=== PATIENT | male | born 1950 | race Caucasian/White ===

== ENCOUNTER 2020-02-25 08:06 | Inpatient (IN) | payer OTHER ==
--- NOTE | 2020-02-25 09:13 | PDOC ---
History of Present Illness - General Chief Complaint: Nausea/Vomiting Stated Complaint: DIZZINESS,DIARRHEA,WEKNESS Time Seen by Provider: 02/25/20 08:29 - History of Present Illness Initial Comments: 02/25/20 09:10 69 yo male with PMH of HTN, HLD, IDDM, Stent (16 years ago) presents to the ED with epigastric pain for the past four days ago. Pt is syrian speaker so history was translated by . Pt explains that he went into work on Friday it was very hot and since then has been feeling sick. Pt says that on Friday he tried to eat but had an episode of nonbloody nonbilious emesis. Pt explains pain feels like an upset stomach, the pain has been coming and going and presently at 10/10 in pain, not worse with food or exertion, better when he lies on his right side, and radiates to his right abdomen. Pt has associated sxs of decreased appetite and 5 episodes of emesis with last one being last night. Pt denies SOB, chest pain, dyspnea on exertion, cough, ext swelling, dysuria, urinary frequency, chills, fever, or any sick contacts. PMH: HTN HLD IDDM PSH: Stent FHx: History of cardiac disease Social: occasional alcohol use, denies drug or tobacco use PCP: Dr. De Souza Union Organizer: Dr. Hi 02/25/20 10:56 02/25/20 14:39 Past History - Medical History Allergies/Adverse Reactions: Allergies Allergy/AdvReac Type Severity Reaction Status Date / Time No Known Allergies Allergy Verified 02/25/20 08:09 Home Medications: Ambulatory Orders Clopidogrel Bisulfate [Plavix] 75 mg PO DAILY #30 tablet 12/09/13 Glimepiride 4 mg PO DAILY tablet 12/09/13 Losartan Potassium 50 mg PO DAILY tablet 12/09/13 Metoprolol Succinate 50 mg PO DAILY 12/09/13 Rosuvastatin Calcium [Crestor] 40 mg PO DAILY tablet 12/09/13 Atorvastatin Calcium 40 mg PO DAILY tablet 05/30/14 Metformin HCl 500 mg PO BID #14 tablet 05/30/14 CVA: Yes COPD: No Diabetes: Yes HTN: Yes Hypercholesterolemia: Yes - Immunization History Immunization Up to Date: Yes - Psycho-Social/Smoking History Smoking History: Never smoked - Substance Abuse Hx (Audit-C & DAST Scrn) How often the patient has a drink containing alcohol: Never Score: In Men: 4 or > Positive; In Women: 3 or > Positive: 0 Screen Result (Pos requires Nsg. Audit-10AR): Negative In the last yr the pt used illegal drug/Rx for NonMed reason: No Score: Yes response is considered Positive: 0 Screen Result (Positive result requires Nsg. DAST-10): Negative Review of Systems - Review of Systems Comments:: GENERAL/CONSTITUTIONAL: No fever or chills. HEAD, EYES, EARS, NOSE AND THROAT: No change in vision. No ear pain or discharge. No sore throat. CARDIOVASCULAR: No chest pain or shortness of breath RESPIRATORY: No cough, wheezing, or hemoptysis. GASTROINTESTINAL: NAUSEA, Vomitting, Epigastric pain GENITOURINARY: No dysuria, frequency, or change in urination. MUSCULOSKELETAL: No joint or muscle swelling or pain. No neck or back pain. SKIN: No rash NEUROLOGIC: No headache, vertigo, loss of consciousness, or change in strength /sensation. ENDOCRINE: Decreased appetite and thirst ALLERGIC/IMMUNOLOGIC: No hives or skin allergy. 02/25/20 09:51 *Physical Exam - Vital Signs Last Vital Signs Temp Pulse Resp BP Pulse Ox 97.3 F L 104 H 20 137/61 100 02/25/20 08:09 02/25/20 08:09 02/25/20 08:09 02/25/20 08:09 02/25/20 08:09 - Physical Exam GENERAL: Awake, alert, and fully oriented, Pt appears in distress lying on right side HEAD: No signs of trauma, normocephalic, atraumatic EYES: PERRLA, EOMI, conjunctiva clear ENT: oropharynx clear without exudates. DRY MUCOSA NECK: Normal ROM, supple, no lymphadenopathy, JVD, or masses LUNGS: No distress, speaks full sentences, clear to auscultation bilaterally HEART: Regular rate and rhythm, normal S1 and S2, no murmurs, rubs or gallops, peripheral pulses normal and equal bilaterally. ABDOMEN: Soft, nontender, normoactive bowel sounds. No guarding, no rebound. No masses EXTREMITIES : Normal inspection, Normal range of motion, no edema. No clubbing or cyanosis. NEUROLOGICAL: Cranial nerves II through XII grossly intact. Normal speech no focal sensorimotor deficits. SKIN: Warm, Dry, normal turgor, no rashes or lesions noted Heart Score/ECG Review - ECG Impressions Comment:: Sinus Tachycarda Rate of 101 Normal rhythm T wave inversion of III LA interval normal QT 388/503 No prior ECG to compare 02/25/20 09:48 ED Treatment Course - LABORATORY CBC & Chemistry Diagram: 02/25/20 09:00 02/25/20 11:10 - ADDITIONAL ORDERS Additional order review: Laboratory Results 02/25/20 08:17 POC Glucometer 113 02/25/20 08:17 POC Glucometer 113 Medical Decision Making - Medical Decision Making Assesment: - R/O ACS - Rhabdomyoliasis - Pancreatitis - gastritis -cholecystitis 69 yo male with PMH of HTN, HLD, IDDM, and stent complaining of epigastric pain, nausea, and vomitting for four days after working on a hot day. Pt got CBC, CMP, lipase, CXR, EKG, and cardiac biomarkers. Will receive fluid, pepcid, malox, and viscous lidocaine. Will check labs, reasses labs, and plan for dispo. 02/25/20 09:56 02/25/20 10:24 Pt lab came back with critical lab results of elevated K at 7.4 with BUN of 107 and Cr of 13.6. 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 Pt will receive Insulin with D50, Calcium gluconate, Albuterol, bicarb and reassess labs with EKG and BMP within one hour. Pt will be admitted to hospitalist and call was made out to Nephrology. 02/25/20 10:[address] Patel and he was made aware of the situation with the elevated K. He agreed with plan and said to add 1L NS with 150mL/hr, repeat BMP, and admit to ICU. When checking BMP if K>6 give kayexelate and if >6.5 urgent dialysis. 02/25/20 10:53 Pt stated he started feeling SOB. Pt lungs are CTA bilaterally but we decided to hold fluids for now. 02/25/20 11:39 Pt pH came back 6.8 restarted fluids very slowly will reasses 02/25/20 12:26 Dr. Patel has assesed pt and has recommended Trialysis and adkins and admit to ICU. 02/25/20 14:38 Trialysis has been placed pt has been sent to ICU Discharge - Discharge Information Problems reviewed: Yes Clinical Impression/Diagnosis: Lactic acidosis, Uremia, Hyperkalemia Acute renal failure Qualifiers: Acute renal failure type: unspecified Qualified Code(s): N17.9 - Acute kidney failure, unspecified Condition: Critical - Admission Yes - Follow up/Referral - Patient Discharge Instructions - Post Discharge Activity
[2020-02-25 09:25] LABS: BASO % 0.6 % (0-2.0); HEMATOCRIT 44.9 % (35.4-49); MCH 31.8 pg (25.7-33.7); MCHC 31.3 g/dl (32.0-35.9); MEAN CELL VOLUME 101.5 fl (80-96); MEAN PLT VOLUME 9.2 fl (7.5-11.1); MONO % 1.6 % (3.8-10.2); NEUT % 90.8 % (42.8-82.8); PLATELET COUNT 384 K/MM3 (134-434); RBC 4.42 M/mm3 (4.00-5.60); RDW 13.8 % (11.9-15.9); WHITE BLOOD COUNT 14.6 K/mm3 (4.0-10.0)
[2020-02-25] MEDS ORDERED: FAMOTIDINE 20 MG/50 ML IVPB 20 MG/50 ML MG IVPB ONE ×2 (09:43→09:53)
[2020-02-25] MEDS ORDERED: LIDOCAINE VISCOUS 2% ORAL/TOP 20 ML UNIT-DOSE CUP MM ONE (09:43)
[2020-02-25] MEDS ORDERED: SODIUM CHLORIDE 1,000 ML IV STA (09:43)
[2020-02-25] MEDS ORDERED: MAG HYDROX/AL HYDROX/SIMETH 30 ML UNIT-DOSE CUP PO ONE (09:43)
[2020-02-25] MEDS ORDERED: MAG HYDROX/AL HYDROX/SIMETH 30 ML UNIT-DOSE CUP ONE (09:53)
[2020-02-25] MEDS ORDERED: LIDOCAINE VISCOUS 2% ORAL/TOP 20 ML UNIT-DOSE CUP ONE (09:53)
[2020-02-25 10:02] LABS: MAGNESIUM 2.5 mg/dL (1.8-2.4)
[2020-02-25 10:06] LABS: ALBUMIN 3.6 g/dl (3.4-5.0); BILIRUBIN,TOTAL 0.3 mg/dL (0.2-1); TOT PROT 7.3 g/dl (6.4-8.2)
[2020-02-25 10:07] LABS: BLOOD UREA NITROGEN 107.5 mg/dL (7-18)
[2020-02-25 10:08] LABS: CREATININE 13.6 mg/dL (0.55-1.3); POTASSIUM 7.4 mmol/L (3.5-5.1)
[2020-02-25] MEDS ORDERED: CALCIUM GLUCONATE 10% - 1,000 MG/10 ML VIAL IVPB ONE (10:12)
[2020-02-25] MEDS ORDERED: INSULIN REGULAR HUMAN 100 UNITS/ML *VIAL IVPUSH ONE (10:13)
[2020-02-25] MEDS ORDERED: DEXTROSE 50%-WATER - 25 GM/50 ML VIAL IVPUSH ONE (10:14)
[2020-02-25] MEDS ORDERED: SODIUM BICARBONATE 8.4% 50 MEQ/50 ML DISP.SYRIN IVPUSH ONE ×2 (10:17→12:21)
[2020-02-25] MEDS ORDERED: ALBUTEROL SO4 0.083% IH SOL 2.5 MG/3 ML VIAL.NEB. NEB ONE ×2 (10:18→10:55)
[2020-02-25] MEDS ORDERED: DEXTROSE 50%-WATER 25 GM/50 ML DISP.SYRIN ONE (10:21)
[2020-02-25] MEDS ORDERED: SODIUM BICARBONATE 8.4% - 50 ML ONE ×2 (10:21→12:50)
[2020-02-25] MEDS ORDERED: INSULIN REGULAR HUMAN 100 UNITS/ML *VIAL ONE (10:21)
[2020-02-25] MEDS ORDERED: CALCIUM GLUCONATE 10% - 1,000 MG/10 ML VIAL ONE ×2 (10:21→10:22)
--- NOTE | 2020-02-25 10:39 | PDOC ---
Documentation entered by Emiliana Tay SCRIBE, acting as scribe for Giorgio Smith MD. Giorgio Smith MD: This documentation has been prepared by the Maggi jones Brenda, SCRIBE, under my direction and personally reviewed by me in its entirety. I confirm that the documentation accurately reflects all work, treatment, procedures, and medical decision making performed by me. Attending Attestation - Resident Resident Name: Joon Edenison - ED Attending Attestation I have performed the following: I have examined & evaluated the patient, The case was reviewed & discussed with the resident, I agree w/resident's findings & plan, Exceptions are as noted - HPI HPI: 02/25/20 10:22 The patient is a 69 year old male with a significant PMH of HTN, HLD, IDDM and a stent (16 years ago) who presents to the ED for evaluation of 4 days of epigastric abdominal pain. Patient notes that the pain feels like he has an upset stomach, stating it is intermittent and radiates to his RLQ. He also endorses feeling ill while at work on Friday and when he tried to eat he had an episode of NBNB vomiting. He reports that since then he's had 5 episodes of vomiting, with his most recent being last night along with decreased appetite. The patient denies chest pain, shortness of breath, headache and dizziness. Denies fever, chills, diarrhea and constipation. Denies frequency, urgency and hematuria. The patient denies any other symptoms. No increased leg swelling Allergies: NKA Past surgical history: Stent Social history: No reported hx of tobacco use or illicit drug use. Occasional alcohol use. PCP: Dr. Rubin - Physicial Exam PE: 02/25/20 10:35 GENERAL: The patient is awake, alert, and fully oriented, Nontoxic - in no acute distress. HEAD: Normocephalic, atraumatic. EYES: extraocular movements intact, sclera anicteric, conjunctiva clear. ENT: Normal voice, Moist mucous membranes. NECK: Normal range of motion, supple LUNGS: Breath sounds equal, clear to auscultation bilaterally. No wheezes, no rhonchi, no rales. HEART: Regular rate and rhythm, normal S1 and S2 without murmur, rub or gallop. ABDOMEN: Soft, nontender, No guarding, no rebound. No CVA tenderness EXTREMITIES: Normal range of motion, trace edema. NEUROLOGICAL: No facial assymetry, Normal speech, PSYCH: Normal mood, normal affect. SKIN: Warm, Dry, normal turgor, - Critical Care Time Total Critical Care Time: 45 Critical Care Statement: The care of this patient involved high complexity decision making to prevent further life threatening deterioration of the patient's condition and/or to evaluate & treat vital organ system(s) failure or risk of failure. - Medical Decision Making 02/25/20 10:35 69y M HTN, HLD, IDDM, Stent (16 years ago) presents with malaise for a few days with nausea and mild chest/epigastric pain. on exam pt in no disress, exam unremarkable will obtain blod work to screen for acs, metabolic derangement, anemia fluids for hydration ekg to screen for acs labs noted for new aaliyah, with hyperkalemia will treat with hyperk cocktail will hduyrate case dw renal. will repeat will admit for further mangement will admit to icu 02/25/20 11:49 Patient's blood work was reviewed noted for acidosis likely related to his renal failure. Will discuss with renal regarding possible diallysis Discharge - Discharge Information Problems reviewed: Yes Clinical Impression/Diagnosis: Lactic acidosis, Uremia, Hyperkalemia Acute renal failure Qualifiers: Acute renal failure type: unspecified Qualified Code(s): N17.9 - Acute kidney failure, unspecified Condition: Improved Disposition: HOME - Admission Yes - Follow up/Referral - Patient Discharge Instructions - Post Discharge Activity
[2020-02-25] MEDS ORDERED: SODIUM CHLORIDE 1,000 ML IV SCH (10:45)
[2020-02-25] MEDS: SODIUM CHLORIDE 1,000 ML IV SCH ×2 (10:45→21:19)
[2020-02-25 10:49] LABS: INR 0.97 (0.83-1.09); PROTHROMBIN TIME (PATIENT) 11.4 SEC (9.7-13.0)
[2020-02-25 10:52] LABS: ACTIVATED PTT 29.8 SECONDS (25.2-36.5)
[2020-02-25 11:28] LABS: VENOUS BASE EXCESS -27.7 mmol/L (-2-2); VENOUS O2 SATURATION 62.2 % (70-80); VENOUS PCO2 31.7 mmHg (38-52)
[2020-02-25 11:33] LABS: VENOUS PH 6.855 (7.310-7.410)
[2020-02-25 11:59] LABS: CALCIUM 8.7 mg/dL (8.5-10.1)
[2020-02-25 12:01] LABS: BLOOD UREA NITROGEN 116.9 mg/dL (7-18); CREATININE 13.7 mg/dL (0.55-1.3)
[2020-02-25 12:02] LABS: POTASSIUM 7.1 mmol/L (3.5-5.1)
--- NOTE | 2020-02-25 12:23 | CON.NEP ---
Consult Consult Specialty:: Nephrology Referred by:: ED Reason for Consultation:: Acute Renal Failure - History of Present Illness Chief Complaint: Weakness History of Present Illness: This is a 69 year old male with history of CAD s/p PCI and stent, insulin dependent DM, hypertension, hyperlipidemia who presented with g eneralized weakness and found to have acute renal failure with hyperkalemia and acidosis. Pt seen and examined in the ED. Is accompanied by his . He is awake and alert. Reports fatigue x 1 week. Has anorexia with some nausea and vomiting. Denies any history of kidney disease, stones or recurrent urinary tract infections. Denies any NSAID use. No recent contrast exposure. No flank pain. Has been making less urine. No gross hematuria noted. No history of enlarged prostate. - History Source History Provided By: Patient Limitations to Obtaining History: No Limitations - Past Medical History Cardio/Vascular: Yes: CAD, HTN, Hyperlipdemia Endocrine: Yes: Diabetes Insipidus - Alcohol/Substance Use Hx Alcohol Use: No - Smoking History Smoking history: Never smoked Home Medications - Allergies Allergies/Adverse Reactions: Allergies Allergy/AdvReac Type Severity Reaction Status Date / Time No Known Allergies Allergy Verified 02/25/20 08:09 - Home Medications Home Medications: Ambulatory Orders Clopidogrel Bisulfate [Plavix] 75 mg PO DAILY #30 tablet 12/09/13 Glimepiride 4 mg PO DAILY tablet 12/09/13 Losartan Potassium 50 mg PO DAILY tablet 12/09/13 Metoprolol Succinate 50 mg PO DAILY 12/09/13 Rosuvastatin Calcium [Crestor] 40 mg PO DAILY tablet 12/09/13 Atorvastatin Calcium 40 mg PO DAILY tablet 05/30/14 Metformin HCl 500 mg PO BID #14 tablet 05/30/14 Family Medical History Family History: Unremarkable Review of Systems - Review of Systems Constitutional: reports: Lethargy, Loss of Appetite, Weakness Eyes: reports: No Symptoms HENT: reports: No Symptoms Neck: reports: No Symptoms Cardiovascular: denies: Chest Pain, Edema, Palpitations, Shortness of Breath Respiratory: denies: Cough, SOB, SOB on Exertion Gastrointestinal: reports: Abdominal Pain, Nausea, Vomiting Genitourinary: denies: Flank Pain, Hematuria Musculoskeletal: reports: No Symptoms Integumentary: reports: No Symptoms Neurological: reports: Weakness Nephrology Consult - Height Height: 5 ft 5 in - Weight Weight: 83.915 kg - BMI Body Mass Index (BMI): 30.7 - Lab Results CBC,BMP: CBC, BMP 02/25/20 09:00 02/25/20 11:10 Anion Gap: Anion Gap Anion Gap 37 MMOL/L (8-16) H 02/25/20 11:10 - Imaging Chest X-ray: Report Reviewed, Image Reviewed - Physical Examination Vital Signs: Vital Signs Temperature 97.5 F L 02/25/20 12:15 Pulse Rate 100 H 02/25/20 12:15 Respiratory Rate 19 02/25/20 12:15 Blood Pressure 125/50 L 02/25/20 12:15 O2 Sat by Pulse Oximetry (%) 99 02/25/20 12:15 Constitutional: Yes: Well Nourished, No Distress, Calm Eyes: Yes: Conjunctiva Clear HENT: Yes: Atraumatic Neck: Yes: Supple Cardiovascular: Yes: Regular Rate and Rhythm. No: Murmur, Rub Respiratory: Yes: Regular, Diminished Gastrointestinal: Yes: Soft. No: Tenderness Renal/: No: Bladder Distention, CVA Tenderness - Left, CVA Tenderness - Right, Sandoval Present Extremities: No: Cold, Cool, Cyanosis Edema: Yes Edema: LLE: Trace, RLE: Trace Neurological: Yes: Alert, Oriented Assessment/Plan 69 year old male with history of CAD s/p PCI and stent, insulin dependent DM, hypertension, hyperlipidemia who presented with generalized weakness and found to have acute renal failure with hyperkalemia and acidosis. 1. Acute Renal Injury 2. Hyperkalemia in setting of renal injury 3. Anion gap metabolic acidosis 4. Lactic acidosis 5. R/o Sepsis 6. R/o COVID 7. Hypertension 6. Hyperlipidemia 8. IDDM Differential for BHAVESH: Volume depletion vs. ATN vs. obstruction vs. COVID related renal injury vs. GN/Vasculitis (less likely) Check urine studies, Renal US Sandoval catheter for strict I and O Continue bicarbonate gtt s/p 2-3L of NS in the ED s/p bicarb push x 2 Will need emergent dialysis for management of hyperkalemia/acidosis Will require ICU monitoring Check COVID PCR Check AMY. ANCA CK within normal limits Keep MAP > 65 Renal diet if tolerated Risk and benefits of dialysis discussed with the patient, and daughter (over the phone). They expressed understanding and are willing to proceed with dialysis. Case discussed with the ICU/ED. Thank you Epifanio Patel DO
[2020-02-25] MEDS ORDERED: DEXTROSE 5%-WATER - 1,000 ML with SODIUM BICARBONATE 8.4% - 150 MEQ IV SCH (12:30)
[2020-02-25] MEDS ORDERED: SODIUM CHLORIDE 250 ML IV PRN ×2 (12:32→16:35)
[2020-02-25] MEDS ORDERED: LIDOCAINE HCL 1%, 10 MG/ML (50 mL VIAL) SQ ONE (13:02)
[2020-02-25] MEDS ORDERED: LIDOCAINE HCL 1%, 10 MG/ML (20ML VIAL) ONE (13:04)
--- NOTE | 2020-02-25 13:35 | EKG ---
Test Reason : Blood Pressure : / mmHG Vent. Rate : 101 BPM Atrial Rate : 101 BPM P-R Int : 210 ms QRS Dur : 096 ms QT Int : 388 ms P-R-T Axes : 068 084 049 degrees QTc Int : 503 ms SINUS TACHYCARDIA WITH 1ST DEGREE A-V BLOCK LOW VOLTAGE QRS CANNOT RULE OUT ANTEROSEPTAL INFARCT (CITED ON OR BEFORE 25-FEB-2020) ABNORMAL ECG WHEN COMPARED WITH ECG OF 17-JAN-2004 07:34, PREMATURE VENTRICULAR COMPLEXES ARE NO LONGER PRESENT TN INTERVAL HAS INCREASED RIGHT BUNDLE BRANCH BLOCK IS NO LONGER PRESENT Confirmed by GARIMA ADAM MD ([id number]) on 02/25/2020 1:35:04 PM Referred By: Confirmed By:GARIMA ADAM MD
--- NOTE | 2020-02-25 15:03 | CONSULT ---
Consultation: REQUESTING PROVIDER: CONSULT REQUEST: We have been asked to medically evaluate this patient for management of hyperkalemia. PCP: Dr. Medina . Records obtained and are in pt's chart. (Nahed) [phone] HISTORY OF PRESENT ILLNESS: 69 yo male with PMH of HTN, HLD, DM (on insulin), CAD (s/p PCI 2003) presented to the ED with nausea and vomiting for 4 days. He has never experienced this before. Onset was after working on a hot day (works at [employer]). Pt admits to having associated anorexia and insomnia. Stated that his vomit was green in color and without blood. The rest of the history was obtained from the . She stated that pt had 1 episode of loose stool 4 days ago. Patient endorses his last bowel movement was today, denies jeremy blood. Denies any recent antibiotic use. Pt additionally admits to having generalized weakness. Pt denies fever chills, chest pain, abdominal pain at this time. Upon chart review, appears pt is on Losartan, lisinopril, and valsartan, however, states he is only taking lisinopril. Baseline Cr 1.2. REVIEW OF SYSTEMS: As per HPI. PMH: HTN, HLD, DM (on insulin), CAD s/p PCI in 2003 PSH: PCI 2013 PHYSICAL EXAMINATION Vital Signs - 24 hr 02/25/20 02/25/20 02/25/20 08:09 12:15 14:01 Temperature 97.3 F L 97.5 F L Pulse Rate 104 H Pulse Rate [ 100 H 100 H Apical] Respiratory 20 19 19 Rate Blood Pressure 137/61 Blood Pressure 125/50 L 93/52 L [Right Arm] O2 Sat by Pulse 100 99 99 Oximetry (%) GENERAL: Awake and alert. Anxious. HEENT: NCAT, EOMI, nares patent, dry mucous membranes. LUNGS: Breath sounds equal, clear to auscultation bilaterally HEART: Regular rate and rhythm, normal S1 and S2 without murmur ABDOMEN: Obese. Soft, nontender to palpation. Bowel sounds absent. Negative rigidity or guarding. SKIN: Warm, dry. Negative scars/lesions. Laboratory Last Values WBC 14.6 K/mm3 (4.0-10.0) H 02/25/20 09:00 RBC 4.42 M/mm3 (4.00-5.60) 02/25/20 09:00 Hgb 14.0 GM/dL (11.7-16.9) 02/25/20 09:00 Hct 44.9 % (35.4-49) 02/25/20 09:00 MCV 101.5 fl (80-96) H 02/25/20 09:00 MCH 31.8 pg (25.7-33.7) 02/25/20 09:00 MCHC 31.3 g/dl (32.0-35.9) L 02/25/20 09:00 RDW 13.8 % (11.9-15.9) 02/25/20 09:00 Plt Count 384 K/MM3 (134-434) D 02/25/20 09:00 MPV 9.2 fl (7.5-11.1) D 02/25/20 09:00 Absolute Neuts (auto) 13.2 K/mm3 (1.5-8.0) H 02/25/20 09:00 Neutrophils % 90.8 % (42.8-82.8) H 02/25/20 09:00 Lymphocytes % 7.0 % (8-40) L D 02/25/20 09:00 Monocytes % 1.6 % (3.8-10.2) L D 02/25/20 09:00 Eosinophils % 0.0 % (0-4.5) D 02/25/20 09:00 Basophils % 0.6 % (0-2.0) 02/25/20 09:00 Nucleated RBC % 0 % (0-0) 02/25/20 09:00 PT with INR 11.40 SEC (9.7-13.0) 02/25/20 09:00 INR 0.97 (0.83-1.09) 02/25/20 09:00 PTT (Actin FS) 29.8 SECONDS (25.2-36.5) 02/25/20 09:00 VBG pH 6.855 (7.310-7.410) L* 02/25/20 11:10 POC VBG pCO2 31.7 mmHg (38-52) L 02/25/20 11:10 POC VBG pO2 54.4 mmHg (28-48) H 02/25/20 11:10 VBG HCO3 5.5 mmol/L (23-29) L 02/25/20 11:10 VBG O2 Sat (Laith) 62.2 % (70-80) L 02/25/20 11:10 VBG Base Excess -27.7 mmol/L (-2-2) L 02/25/20 11:10 Sodium 136 mmol/L (136-145) 02/25/20 11:10 Potassium 7.1 mmol/L (3.5-5.1) H* 02/25/20 11:10 Chloride 93 mmol/L (98-107) L 02/25/20 11:10 Carbon Dioxide 6 mmol/L (21-32) L 02/25/20 11:10 Anion Gap 37 MMOL/L (8-16) H 02/25/20 11:10 BUN 116.9 mg/dL (7-18) H* 02/25/20 11:10 Creatinine 13.7 mg/dL (0.55-1.3) H* 02/25/20 11:10 Est GFR (CKD-EPI)AfAm 3.69 02/25/20 11:10 Est GFR (CKD-EPI)NonAf 3.18 02/25/20 11:10 POC Glucometer 113 UNITS (80-120) 02/25/20 08:17 Random Glucose 200 mg/dL (74-106) H 02/25/20 11:10 Lactic Acid 14.2 mmol/L (0.4-2.0) H* 02/25/20 11:14 Calcium 8.7 mg/dL (8.5-10.1) 02/25/20 11:10 Magnesium 2.5 mg/dL (1.8-2.4) H 02/25/20 09:00 Total Bilirubin 0.3 mg/dL (0.2-1) 02/25/20 09:00 AST 12 U/L (15-37) L 02/25/20 09:00 ALT 18 U/L (13-61) 02/25/20 09:00 Alkaline Phosphatase 88 U/L (45-117) 02/25/20 09:00 Creatine Kinase 258 U/L (26-308) 02/25/20 09:00 Creatine Kinase Index 1.3 % (0.0-5.0) 07/10/20 09:00 CK-MB (CK-2) 3.6 ng/mL (0.5-3.6) 02/25/20 09:00 Troponin I < 0.02 ng/ml (0.00-0.05) 02/25/20 09:00 Total Protein 7.3 g/dl (6.4-8.2) 02/25/20 09:00 Albumin 3.6 g/dl (3.4-5.0) 02/25/20 09:00 Lipase 170 U/L (73-393) 02/25/20 09:00 Beta-Hydroxybutyrate 74.1 mg/dL (0.2-2.8) H 02/25/20 11:10 Ur Random Creatinine 72.0 mg/dL (30-150) 02/25/20 11:38 U Random Total Protein 216.2 mg/dL (0-11.9) H 02/25/20 11:38 Protein/Creatinin Ratio 3.0 mg/dL 02/25/20 11:38 Active Medications Sodium Chloride (Normal Saline -) 1,000 mls @ 150 mls/hr IV [facility] Last Admin: 02/25/20 10:45 Dose: 150 mls/hr Documented by: Sodium Bicarbonate 150 meq/ (Dextrose) 1,150 mls @ 100 mls/hr IV Q11H [facility] Last Admin: 02/25/20 13:45 Dose: 100 mls/hr Documented by: Sodium Chloride (Normal Saline -) 250 mls @ 3,000 mls/hr IV PRN PRN PRN Reason: Hypotension during Dialysis Stop: 02/26/20 12:32 ASSESSMENT/PLAN: 69 year old male with PMH of HTN, HLD, DM (on insulin), CAD (s/p PCI 2013) who presented to the ED with generalized weakness, anorexia and diarrhea and is currently being admitted for acute renal failure with hyperkalemia and acidosis. Received records from Dr. Medina's office. #Neuro Alert and awake -Will continue to monitor mental status #Cardiovascular Hypotension -BP 93/52, keep MAP>65 -Resuscitate with Normal Saline -EKG showed sinus tachycardia, Qtc 503, will monitor. Avoid QTC-prolonging drugs. #Pulmonary -No active symptoms -Saturating well on room air. #Renal Acute kidney injury ,likely secondary to volume depletion vs. infection vs. polypharmacy Hyperkalemia in the setting of BHAVESH. Anion gap metabolic acidosis -Pt's baseline Cr 1.2, eGFR 59.58 -s/p Bicarbonate push x2, calcium gluconate, D50w Insulin 4 units IV in the ED. - Nephrology recommendations (Dr. Patel) appreciated. R sided femoral line placed for emergent hemodialysis. -Follow urine studies -Follow renal US -Sandoval catheter for strict I and O -Check ANCA, AMY -Follow BMP after hemodialysis. -IV fluids- NS at 150 cc/hr #ID Sepsis of unknown source, considering GI as possible source, given diarrhea and vomiting. -Blood cultures, urine culture, UA -ID recommendations (Dr. Degroot) appreciated. Will begin Zosyn. -COVID pending -IV fluids- NS at 150 cc/hr #Endo IDDM -ISS + BGM #Ppx -DVT: SQH #TLD -Sandoval 02/24 -R femoral line placed 02/24 #FEN -Normal saline for hydration -Renal diet if tolerated Dispo: Will continue to monitor in the ICU. Thank you for this consultative opportunity. Visit type - Emergency Visit Emergency Visit: Yes ED Registration Date: 02/25/20 Care time: The patient presented to the Emergency Department on the above date and was hospitalized for further evaluation of their emergent condition. - New Patient This patient is new to me today: Yes Date on this admission: 02/25/20 - Critical Care Critical Care patient: Yes Total Critical Care Time (in minutes): 40 Critical Care Statement: The care of this patient involved high complexity decision making to prevent further life threatening deterioration of the patient's condition and/or to evaluate & treat vital organ system(s) failure or risk of failure. ATTENDING PHYSICIAN STATEMENT I saw and evaluated the patient. I reviewed the resident's note and discussed the case with the resident. I agree with the resident's findings and plan as documented. SUBJECTIVE: OBJECTIVE: ASSESSMENT AND PLAN:
--- NOTE | 2020-02-25 16:04 | PN ---
Progress Note (short form) - Note Progress Note: ID consult dictated imp/reccd sepsis acute renal failure with hyperkalemia and acidosis diabetes source unclear denies diarrhea-one loose BM +vomiting and gagging since Friday +abdominal pain last labs February 15 with normal renal function source of sepsis is not clear HD planned per primary team blood cultures ua and urine cultures zosyn adjusted for ARF- 2.[address] scan abd/pelvis r/o intra-abdominal pathology overall prognosis is guarded d/w ICU team outpt meds and labs reviewed over 35 minutes sent in the care of this critically ill ICU patient Problem List - Problems (1) Sepsis Code(s): A41.9 - SEPSIS, UNSPECIFIED ORGANISM (2) Acute renal failure Code(s): N17.9 - ACUTE KIDNEY FAILURE, UNSPECIFIED Qualifiers: Acute renal failure type: unspecified Qualified Code(s): N17.9 - Acute kidney failure, unspecified (3) Hyperkalemia Code(s): E87.5 - HYPERKALEMIA (4) Lactic acidosis Code(s): E87.2 - ACIDOSIS
[2020-02-25] MEDS ORDERED: PIPERACILLIN/TAZOB 3.375 GM 3.375 GM in DEXTROSE 5%-WATER - 50 ML IVPB ONE (16:30)
--- NOTE | 2020-02-25 16:36 | PN ---
Teaching Attending Note Name of Resident: Farzana Arango ATTENDING PHYSICIAN STATEMENT I saw and evaluated the patient. I reviewed the resident's note and discussed the case with the resident. I agree with the resident's findings and plan as documented. SUBJECTIVE: Patient seen and examined in the ER. 69 M, HTN, HLD, DM (on insulin), CAD (s/p PCI 2013). Admitted via the ER due to nausea and vomiting for 4 days. Diarrhea x 1 episode. Severe metabolic acidossis, ARF, and severe hyperkalemia with only mild EKG changes. Intake & Output 02/22/20 02/23/20 02/24/20 02/25/20 23:59 23:59 23:59 23:59 Weight 185 lb Last Vital Signs Temp Pulse Resp BP Pulse Ox 97.7 F 99 H 20 99/53 L 98 02/25/20 14:40 02/25/20 14:40 02/25/20 14:40 02/25/20 14:40 02/25/20 15:02 Active Medications Sodium Chloride (Normal Saline -) 1,000 mls @ 150 mls/hr IV ASDIR [facility] Last Admin: 02/25/20 10:45 Dose: 150 mls/hr Documented by: Sodium Bicarbonate 150 meq/ (Dextrose) 1,150 mls @ 100 mls/hr IV Q11H [facility] Last Admin: 02/25/20 13:45 Dose: 100 mls/hr Documented by: Sodium Chloride (Normal Saline -) 250 mls @ 3,000 mls/hr IV PRN PRN PRN Reason: Hypotension during Dialysis Stop: 02/26/20 12:32 GENERAL: Awake and alert. mildly confused. HEENT: NCAT, EOMI, nares patent, dry mucous membranes. LUNGS: Breath sounds equal, clear to auscultation bilaterally HEART: Regular rate and rhythm, normal S1 and S2 without murmur ABDOMEN: Obese. Soft, nontender. Bowel sounds absent SKIN: Warm, dry Laboratory Last Values WBC 14.6 K/mm3 (4.0-10.0) H 02/25/20 09:00 RBC 4.42 M/mm3 (4.00-5.60) 02/25/20 09:00 Hgb 14.0 GM/dL (11.7-16.9) 02/25/20 09:00 Hct 44.9 % (35.4-49) 02/25/20 09:00 MCV 101.5 fl (80-96) H 02/25/20 09:00 MCH 31.8 pg (25.7-33.7) 02/25/20 09:00 MCHC 31.3 g/dl (32.0-35.9) L 02/25/20 09:00 RDW 13.8 % (11.9-15.9) 02/25/20 09:00 Plt Count 384 K/MM3 (134-434) D 02/25/20 09:00 MPV 9.2 fl (7.5-11.1) D 02/25/20 09:00 Absolute Neuts (auto) 13.2 K/mm3 (1.5-8.0) H 02/25/20 09:00 Neutrophils % 90.8 % (42.8-82.8) H 02/25/20 09:00 Lymphocytes % 7.0 % (8-40) L D 02/25/20 09:00 Monocytes % 1.6 % (3.8-10.2) L D 02/25/20 09:00 Eosinophils % 0.0 % (0-4.5) D 02/25/20 09:00 Basophils % 0.6 % (0-2.0) 02/25/20 09:00 Nucleated RBC % 0 % (0-0) 02/25/20 09:00 PT with INR 11.40 SEC (9.7-13.0) 02/25/20 09:00 INR 0.97 (0.83-1.09) 02/25/20 09:00 PTT (Actin FS) 29.8 SECONDS (25.2-36.5) 02/25/20 09:00 VBG pH 6.855 (7.310-7.410) L* 02/25/20 11:10 POC VBG pCO2 31.7 mmHg (38-52) L 02/25/20 11:10 POC VBG pO2 54.4 mmHg (28-48) H 02/25/20 11:10 VBG HCO3 5.5 mmol/L (23-29) L 02/25/20 11:10 VBG O2 Sat (Laith) 62.2 % (70-80) L 02/25/20 11:10 VBG Base Excess -27.7 mmol/L (-2-2) L 02/25/20 11:10 Sodium 136 mmol/L (136-145) 02/25/20 11:10 Potassium 7.1 mmol/L (3.5-5.1) H* 02/25/20 11:10 Chloride 93 mmol/L (98-107) L 02/25/20 11:10 Carbon Dioxide 6 mmol/L (21-32) L 02/25/20 11:10 Anion Gap 37 MMOL/L (8-16) H 02/25/20 11:10 BUN 116.9 mg/dL (7-18) H* 02/25/20 11:10 Creatinine 13.7 mg/dL (0.55-1.3) H* 02/25/20 11:10 Est GFR (CKD-EPI)AfAm 3.69 02/25/20 11:10 Est GFR (CKD-EPI)NonAf 3.18 02/25/20 11:10 POC Glucometer 113 UNITS (80-120) 02/25/20 08:17 Random Glucose 200 mg/dL (74-106) H 02/25/20 11:10 Lactic Acid 14.2 mmol/L (0.4-2.0) H* 02/25/20 11:14 Calcium 8.7 mg/dL (8.5-10.1) 02/25/20 11:10 Magnesium 2.5 mg/dL (1.8-2.4) H 02/25/20 09:00 Total Bilirubin 0.3 mg/dL (0.2-1) 02/25/20 09:00 AST 12 U/L (15-37) L 02/25/20 09:00 ALT 18 U/L (13-61) 02/25/20 09:00 Alkaline Phosphatase 88 U/L (45-117) 02/25/20 09:00 Creatine Kinase 258 U/L (26-308) 02/25/20 09:00 Creatine Kinase Index 1.3 % (0.0-5.0) 02/25/20 09:00 CK-MB (CK-2) 3.6 ng/mL (0.5-3.6) 02/25/20 09:00 Troponin I < 0.02 ng/ml (0.00-0.05) 07/10/20 09:00 Total Protein 7.3 g/dl (6.4-8.2) 02/25/20 09:00 Albumin 3.6 g/dl (3.4-5.0) 02/25/20 09:00 Lipase 170 U/L (73-393) 02/25/20 09:00 Beta-Hydroxybutyrate 74.1 mg/dL (0.2-2.8) H 02/25/20 11:10 Ur Random Creatinine 72.0 mg/dL (30-150) 02/25/20 11:38 U Random Total Protein 216.2 mg/dL (0-11.9) H 02/25/20 11:38 Protein/Creatinin Ratio 3.0 mg/dL 02/25/20 11:38 ASSESSMENT/PLAN: Acute Renal Failure Severe metabolic acidosis Severe Hyperkalemia R/O GI source of Sepsis HTN HLD DM (on insulin) CAD (s/p PCI 2013) Access for HD HD per Renal IVF resuscitation Strict I & O ID evaluation for ABX Pressors for MAP < 65 Follow QTc Follow pH Check serology CT imaging Requires ICU monitoring Dr Flanagan Critical care time spent in reviewing chart, evaluating patient and formulating plan - 36 minutes.
[2020-02-25] MEDS ORDERED: DEXTROSE 5%-WATER - 50 ML IVPB ONE ×2 (16:39→19:58)
[2020-02-25] MEDS ORDERED: PIPERACILLIN/TAZOBACTAM 3.375 GM VIAL IVPB ONE (16:39)
--- NOTE | 2020-02-25 17:04 | PROC ---
Central Line Insertion Indication: Other (hemodialysis) Risks and Benefits Explained: Yes Consent on Chart: Yes Central Line: Dialysis Cath, Tri Lumen Anesthesia: 1% Lidocaine Sterile Technique: Yes Ultrasound Guided Assistance: Yes Position: Right Femoral Post Insertion: Yes: Chest X-Ray Ordered Sterile Dressing Applied: Yes Remarks: Supervised with Dr. Flanagan
[2020-02-25 17:08] LABS: EPI CELLS >36 /uL (0-25.1); HYALINE CASTS 14 /uL (0-3.1); URINE APPEARANCE CLOUDY; URINE BACTERIA 6 /uL (0-1359); URINE BILIRUBIN NEGATIVE (NEGATIVE); URINE COLOR YELLOW; URINE GLUCOSE (UA) NEGATIVE (NEGATIVE); URINE KETONE TRACE (NEGATIVE); URINE LEUK ESTERASE TRACE (NEGATIVE); URINE NITRITE NEGATIVE (NEGATIVE); URINE PROTEIN 3+ (NEGATIVE); URINE RBC 7 /uL (0-23.9); URINE UROBILINOGEN 0.2 mg/dL (0.2-1.0); URINE WBC 62 /uL (0-25.8)
--- NOTE | 2020-02-25 17:56 | CONS ---
DATE OF CONSULTATION: DATE OF DICTATION: 02/25/2020 INFECTIOUS DISEASE CONSULTATION HISTORY OF PRESENT ILLNESS: This is a 69-year-old man past medical history of hypertension, hyperlipidemia, diabetes, coronary artery disease, who presents to the ER with dizziness and weakness. He has been having abdominal pain midepigastric at home. He has had multiple episodes of vomiting, and he has not been feeling well. He has had nonbloody, nonbilious emesis. He has had 1 episode of loose stool and none besides that. He has not been eating at all, and he feels very weak. In the ER, he was noted to be in acute renal failure, and he was admitted to the ICU. I am asked to see him for further evaluation. PAST MEDICAL HISTORY: Notable for hypertension, hyperlipidemia, diabetes, hypothyroidism. He is followed by Dr. 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 De Souza is his PMD at [facility]. SURGICAL HISTORY: Unremarkable. He has had cardiac stents placed many years ago. SOCIAL HISTORY: He is , lives with his . Occasional social alcohol, no substance use. 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 There had been no recent travel. REVIEW OF SYSTEMS: He denies any chest pain or shortness of breath at this time. PHYSICAL EXAMINATION: General: He is awake and alert. Vital Signs: Temperature 97.7, pulse is 99, blood pressure 99/53, respiratory rate 20, saturating 98% on room air. HEENT: Normocephalic. Eyes are anicteric. Neck: Supple. He has no asterixes. Lungs: Clear to auscultation. Heart: Regular rate and rhythm. Abdomen: Soft. He has no tenderness on exam, but he has markedly diminished bowel sounds. Extremities: Without edema. LABORATORY: White count is 14.6, hemoglobin 14, platelets are 384. INR is 0.97. His labs are notable for potassium of 7.1, BUN 116, creatinine 13.7, lactic acid is 14.2 with a glucose of 200, and his beta hydroxybutyrate is 74, lipase is normal at 170. Urinalysis is pending. COVID-19 is pending. Chest x-ray was done and is clear. His labs from [facility] were obtained. His BUN and creatinine were 21 and 1.2 on February 15 when he was there. His white count was 7000, hemoglobin of 12.6. IMPRESSION: In summary, this is a 69-year-old man admitted with sepsis, acute renal failure with hyperkalemia and acidosis, diabetes of unclear source. Denies diarrhea, had one loose bowel movement. He has had persistent vomiting and gagging with abdominal pain. Source of sepsis not clear plan per primary team. Blood cultures, urinalysis and urine culture. Zosyn adjusted for acute renal failure 2.25 q.8. CAT scan abdomen and pelvis rule out intraabdominal pathology. Overall prognosis is guarded in this critically ill 69-year-old man. Case was discussed with intensive care unit team at length. Outpatient medications and labs reviewed. Medication list is per the intensive care unit team, which was verified with the patient's , whose medications include metformin, Plavix, levothyroxine, lisinopril, vitamin D, metoprolol, rosuvastatin, insulin, and aspirin. CONCHIS BONILLA M.D. [id number]
[2020-02-25 18:24] LABS: CALCIUM 8.4 mg/dL (8.5-10.1)
[2020-02-25 18:33] LABS: BLOOD UREA NITROGEN 115.1 mg/dL (7-18); CREATININE 13.4 mg/dL (0.55-1.3); POTASSIUM 8.1 mmol/L (3.5-5.1)
[2020-02-25] MEDS ORDERED: PIPERACILLIN/TAZOBACTAM 2.25 GM VIAL IVPB ONE (19:58)
[2020-02-25] MEDS: PIPERACILLIN/TAZOB 2.25 GM 2.25 GM in DEXTROSE 5%-WATER - 50 ML IVPB SCH (20:00)
[2020-02-25 21:02] LABS: BLOOD UREA NITROGEN 61.3 mg/dL (7-18); CALCIUM 7.8 mg/dL (8.5-10.1); CREATININE 7.2 mg/dL (0.55-1.3); POTASSIUM 4.7 mmol/L (3.5-5.1)
[2020-02-25] MEDS: HEPARIN NA (PORCINE) 5,000 UNITS/ML 1ML VIAL SQ SCH (21:18)
[2020-02-25 21:23] LABS: ARTERIAL BLD GAS O2 SATURATION 96.7 mmHg (95-98); ARTERIAL BLOOD GAS BASE EXCESS -11.6 mmol/L (-2-2); ARTERIAL BLOOD GAS PO2 91.7 mmHg (80-100); ARTERIAL BLOOD GAS pH 7.328 (7.350-7.450)
[2020-02-25 21:24] LABS: ALLENS TEST POSITIVE
[2020-02-25] MEDS: INSULIN SLIDING SCALE (NOVOLOG) 1 VIAL SQ SCH (21:28)
[2020-02-25] MEDS ORDERED: SODIUM CHLORIDE 500 ML IV STA (23:10)
[2020-02-26] MEDS: SODIUM BICARBONATE 8.4% - 150 MEQ in DEXTROSE 5%-WATER - 1,000 ML IV SCH ×2 (00:07→09:30)
[2020-02-26] MEDS: PIPERACILLIN/TAZOB 2.25 GM 2.25 GM in DEXTROSE 5%-WATER - 50 ML IVPB SCH ×3 (01:22→17:13)
[2020-02-26] MEDS: HEPARIN NA (PORCINE) 5,000 UNITS/ML 1ML VIAL SQ SCH ×4 (05:42→21:07)
[2020-02-26] MEDS: INSULIN SLIDING SCALE (NOVOLOG) 1 VIAL SQ SCH ×4 (06:14→21:11)
[2020-02-26 07:28] LABS: HEMATOCRIT 28.4 % (35.4-49); HEMOGLOBIN 9.5 GM/dL (11.7-16.9); MCH 31.6 pg (25.7-33.7); MCHC 33.4 g/dl (32.0-35.9); MEAN CELL VOLUME 94.4 fl (80-96); MEAN PLT VOLUME 8.2 fl (7.5-11.1); PLATELET COUNT 243 K/MM3 (134-434); RBC 3.01 M/mm3 (4.00-5.60); RDW 13.2 % (11.9-15.9); WHITE BLOOD COUNT 8.7 K/mm3 (4.0-10.0)
[2020-02-26 07:33] LABS: ALBUMIN 2.6 g/dl (3.4-5.0); BILIRUBIN,TOTAL 0.4 mg/dL (0.2-1); BLOOD UREA NITROGEN 76.4 mg/dL (7-18); MAGNESIUM 1.7 mg/dL (1.8-2.4); PHOSPHOROUS 6.4 mg/dL (2.5-4.9); POTASSIUM 5.1 mmol/L (3.5-5.1)
[2020-02-26 07:37] LABS: TOT PROT 4.8 g/dl (6.4-8.2)
[2020-02-26 07:39] LABS: CREATININE 9.1 mg/dL (0.55-1.3)
[2020-02-26] MEDS ORDERED: MAGNESIUM SULF 50% (8.12 MEQ/2 ML-1 GM VIAL) IVPB ONE (08:15)
[2020-02-26] MEDS ORDERED: PIPERACILLIN/TAZOBACTAM 2.25 GM VIAL IVPB ONE ×2 (08:42→17:01)
[2020-02-26] MEDS ORDERED: DEXTROSE 5%-WATER - 50 ML IVPB ONE ×2 (08:43→17:01)
--- NOTE | 2020-02-26 10:04 | PN ---
Progress Note (short form) - Note Progress Note: awake and alert no further vomiting or abdominal pain ct scan abd/pelvis- no acute changes HD last night and again today Vital Signs Period Temp Pulse Resp BP Sys/Leo Pulse Ox Last 24 Hr 97.5 F-99.5 F 77-100 17-23 88-125/44-61 98-99 cor-rrr llungs decreased bs at bases abd soft,nt, decreased bs at bases ext no edema CBC, BMP 02/26/20 06:00 02/26/20 06:[address] abd/pelvis- no acute changes imp/reccd sepsis acute renal failure with hyperkalemia and acidosis diabetes source unclear continue zosyn until cultures are back Problem List - Problems (1) Sepsis Code(s): A41.9 - SEPSIS, UNSPECIFIED ORGANISM (2) Acute renal failure Code(s): N17.9 - ACUTE KIDNEY FAILURE, UNSPECIFIED Qualifiers: Acute renal failure type: unspecified Qualified Code(s): N17.9 - Acute kidney failure, unspecified (3) Hyperkalemia Code(s): E87.5 - HYPERKALEMIA (4) Lactic acidosis Code(s): E87.2 - ACIDOSIS
--- NOTE | 2020-02-26 10:34 | PN ---
Progress Note (short form) - Note Progress Note: Seen and examined in the ICU Received iHD x2 (last this AM) Electrolytes and acidosis have improved hemodynamic and respiratory status stable Active Medications Aspirin (Asa -) 81 mg PO DAILY [facility] Clopidogrel Bisulfate (Plavix -) 75 mg PO DAILY [facility] Heparin Sodium (Porcine) (Heparin -) 5,000 unit SQ TID [facility] Last Admin: 02/26/20 05:42 Dose: 5,000 unit Documented by: Sodium Chloride (Normal Saline -) 1,000 mls @ 150 mls/hr IV ASDIR [facility] Last Admin: 02/25/20 21:19 Dose: 150 mls/hr Documented by: Piperacillin Sod/Tazobactam (Sod 2.25 gm/ Dextrose) 50 mls @ 100 mls/hr IVPB Q8H-IV [facility]; Protocol Last Admin: 02/26/20 01:22 Dose: 100 mls/hr Documented by: Sodium Chloride (Normal Saline -) 250 mls @ 3,000 mls/hr IV PRN PRN PRN Reason: Hypotension during Dialysis Stop: 02/26/20 16:35 Sodium Bicarbonate 150 meq/ (Dextrose) 1,150 mls @ 100 mls/hr IV Q11H [facility] Last Admin: 02/26/20 00:07 Dose: 100 mls/hr Documented by: Insulin Aspart (Novolog Vial Sliding Scale -) 1 vial SQ ACHS [facility]; Protocol Last Admin: 02/26/20 06:14 Dose: Not Given Documented by: Levothyroxine Sodium (Synthroid -) 88 mcg PO DAILY@0700 [facility] Vital Signs Period Temp Pulse Resp BP Sys/Leo Pulse Ox Last 24 Hr 97.5 F-99.5 F 77-100 17-23 88-125/44-61 98-99 Intake & Output 02/23/20 02/24/20 02/25/20 02/26/20 23:59 23:59 23:59 23:59 Intake Total 1250 3900 Output Total 1010 1421 Balance 240 2479 Weight 105 kg Exam: General: HEENT: Pulm: CV: Abd: Ext: Neuro: ABG Results ABG pH 7.328 (7.350-7.450) L 02/25/20 21:00 ABG HCO3 12.7 mmol/L (22-27) L 02/25/20 21:00 ABG O2 Sat (Measured) 96.7 mmHg (95-98) 02/25/20 21:00 ABG O2 Content No Result Required. 02/25/20 21:00 ABG Base Excess -11.6 mmol/L (-2-2) L 02/25/20 21:00 CBC, BMP 02/26/20 06:00 02/26/20 06:00 Micro: Pending ASSESSMENT/PLAN: Acute Renal Failure Severe metabolic acidosis Severe Hyperkalemia R/O GI source of Sepsis HTN HLD DM (on insulin) CAD (s/p PCI 2013) - cont ASA and plavix - HD per Renal - stop sodium bicarb drip and saline - advance diet - Strict I & O, daily weights - ID following: ABX zosyn until cultures return - Daily EKG, Follow QTc - cont synthroid - DVT ppx - stable for floor monitoring Boerem ACNP Pulm/CCM CCT: 35m
[2020-02-26] MEDS: CLOPIDOGREL BISULFATE 75 MG TABLET (FP) PO SCH (11:20)
[2020-02-26] MEDS: ASPIRIN 81 MG CHEWABLE TABLETS PO SCH (11:20)
[2020-02-26] MEDS: LEVOTHYROXINE NA 88 MCG TABLET (FP) PO SCH (11:21)
--- NOTE | 2020-02-26 11:26 | PN ---
Progress Note, Physician Chief Complaint: Acute kidney injury History of Present Illness: Seen and examined in the ICU awake and alert offers no acute complaints s/p 2nd dialysis today Has some more urine output this morning no fever or chills, no sob, no cp - Current Medication List Current Medications: Active Medications Aspirin (Asa -) 81 mg PO DAILY [facility] Clopidogrel Bisulfate (Plavix -) 75 mg PO DAILY [facility] Heparin Sodium (Porcine) (Heparin -) 5,000 unit SQ TID [facility] Last Admin: 02/26/20 05:42 Dose: 5,000 unit Documented by: Piperacillin Sod/Tazobactam (Sod 2.25 gm/ Dextrose) 50 mls @ 100 mls/hr IVPB Q8H-IV [facility]; Protocol Last Admin: 02/26/20 01:22 Dose: 100 mls/hr Documented by: Sodium Chloride (Normal Saline -) 250 mls @ 3,000 mls/hr IV PRN PRN PRN Reason: Hypotension during Dialysis Stop: 02/26/20 16:35 Sodium Chloride (Normal Saline -) 1,000 mls @ 125 mls/hr IV ASDIR [facility] Insulin Aspart (Novolog Vial Sliding Scale -) 1 vial SQ ACHS [facility]; Protocol Last Admin: 02/26/20 06:14 Dose: Not Given Documented by: Levothyroxine Sodium (Synthroid -) 88 mcg PO DAILY@0700 [facility] - Objective Vital Signs: Vital Signs Temperature 99.3 F 02/26/20 07:05 Pulse Rate 86 02/26/20 10:00 Respiratory Rate 20 02/26/20 10:00 Blood Pressure 108/52 L 02/26/20 10:00 O2 Sat by Pulse Oximetry (%) 98 02/25/20 20:12 Constitutional: Yes: No Distress, Calm Neck: Yes: Supple Cardiovascular: Yes: Regular Rate and Rhythm Respiratory: Yes: Regular, Diminished Gastrointestinal: Yes: Soft Extremities: No: Cyanosis Edema: No Neurological: Yes: Alert, Oriented Labs: CBC, BMP 02/26/20 06:00 02/26/20 06:00 INR, PTT INR 0.97 (0.83-1.09) 02/25/20 09:00 Assessment/Plan 69 year old male with history of CAD s/p PCI and stent, insulin dependent DM, hypertension, hyperlipidemia who presented with generalized weakness and found to have acute renal failure with hyperkalemia and acidosis. 1. Acute Renal Injury 2. Hyperkalemia in setting of renal injury 3. Anion gap metabolic acidosis 4. Lactic acidosis 5. R/o Sepsis 6. R/o COVID 7. Hypertension 6. Hyperlipidemia 8. IDDM s/p dialysis x 2 Hyperkalemia/acidosis now improved Remains oliguric CT of Abd/Pelvis showed no obstruction Urine studies consistent with pre-renal disease UPCR is 3 Serologic studies pending (HIV negative) Continue NS at 150cc per hour Trend lactic acid to normal d/c bicarb gtt Low potassium diet Avoid NSAIDs Trend renal function and electrolytes daily Thank you Epifanio Patel DO
[2020-02-26] MEDS ORDERED: SODIUM CHLORIDE 1,000 ML IV SCH (11:30)
[2020-02-26] MEDS: SODIUM CHLORIDE 1,000 ML IV SCH (12:19)
[2020-02-26 16:32] VITALS: BMI 38.4
[2020-02-27] MEDS ORDERED: PIPERACILLIN/TAZOBACTAM 2.25 GM VIAL IVPB ONE ×2 (00:17→07:46)
[2020-02-27] MEDS ORDERED: DEXTROSE 5%-WATER - 50 ML IVPB ONE ×2 (00:17→07:46)
[2020-02-27] MEDS: PIPERACILLIN/TAZOB 2.25 GM 2.25 GM in DEXTROSE 5%-WATER - 50 ML IVPB SCH ×2 (01:01→09:04)
[2020-02-27] MEDS: HEPARIN NA (PORCINE) 5,000 UNITS/ML 1ML VIAL SQ SCH (05:52)
[2020-02-27] MEDS: LEVOTHYROXINE NA 88 MCG TABLET (FP) PO SCH (06:21)
[2020-02-27] MEDS: INSULIN SLIDING SCALE (NOVOLOG) 1 VIAL SQ SCH ×4 (06:21→21:42)
--- NOTE | 2020-02-27 07:34 | PN ---
Progress Note (short form) - Note Progress Note: Progress Note: PULM/CCM Seen and examined in the ICU Received iHD x2 (last 02/25) cath removed, urine output improved (2 L last 24 hours) Electrolytes and acidosis have improved hemodynamic and respiratory status stable Active Medications Aspirin (Asa -) 81 mg PO DAILY [facility] Last Admin: 02/27/20 09:04 Dose: 81 mg Documented by: Clopidogrel Bisulfate (Plavix -) 75 mg PO DAILY [facility] Last Admin: 02/27/20 09:04 Dose: 75 mg Documented by: Piperacillin Sod/Tazobactam (Sod 2.25 gm/ Dextrose) 50 mls @ 100 mls/hr IVPB Q8H-IV [facility]; Protocol Last Admin: 02/27/20 09:04 Dose: 100 mls/hr Documented by: Sodium Chloride (Normal Saline -) 250 mls @ 3,000 mls/hr IV PRN PRN PRN Reason: Hypotension during Dialysis Stop: 02/26/20 16:35 Sodium Chloride (Normal Saline -) 1,000 mls @ 150 mls/hr IV ASDIR [facility] Last Admin: 02/27/20 00:00 Dose: 150 mls/hr Documented by: Insulin Aspart (Novolog Vial Sliding Scale -) 1 vial SQ ACHS [facility]; Protocol Last Admin: 02/27/20 06:21 Dose: Not Given Documented by: Levothyroxine Sodium (Synthroid -) 88 mcg PO DAILY@0700 [facility] Last Admin: 02/27/20 06:21 Dose: 88 mcg Documented by: Vital Signs Period Temp Pulse Resp BP Sys/Leo Pulse Ox Last 24 Hr 98.1 F-99 F 68-86 15-27 89-132/44-68 98 Intake & Output 02/24/20 02/25/20 02/26/20 02/27/20 23:59 23:59 23:59 23:59 Intake Total 1250 6400 1950 Output Total 1010 1431 2000 Balance 240 4969 -50 Weight 105 kg 104.78 kg Exam: General: awake, not in distress HEENT: PERRL, no JVD Pulm: lungs sounds diminished at bases CV: RRR Abd: soft, non-tender Ext: pulses palpable Neuro: alert, oriented CBC, BMP 02/26/20 06:00 02/26/20 06:00 Microbiology 02/25/20 16:15 Urine - Urine - Catheterized Urine Culture - Final NO GROWTH OBTAINED 02/25/20 17:10 Blood - Peripheral Venous Blood Culture - Preliminary NO GROWTH OBTAINED AFTER 24 HOURS, INCUBATION TO CONTINUE FOR 4 DAYS. 02/25/20 17:15 Blood - Peripheral Venous Blood Culture - Preliminary NO GROWTH OBTAINED AFTER 24 HOURS, INCUBATION TO CONTINUE FOR 4 DAYS. ASSESSMENT/PLAN: Acute Renal Failure Severe metabolic acidosis Severe Hyperkalemia (resolved) R/O GI source of Sepsis HTN HLD DM (on insulin) CAD (s/p PCI 2013) - cont ASA and plavix - D/c Heparin - HD per Renal - advance diet - Insulin coverage scale - Strict I & O, daily weights - 2L urine output past 24 hours - ID following: ABX zosyn until cultures return - Daily EKG, Follow QTc - cont synthroid - DVT ppx - stable for floor monitoring Elsy Tay ACNP Pulm/CCM
[2020-02-27] MEDS: CLOPIDOGREL BISULFATE 75 MG TABLET (FP) PO SCH (09:04)
[2020-02-27] MEDS: ASPIRIN 81 MG CHEWABLE TABLETS PO SCH (09:04)
--- NOTE | 2020-02-27 09:33 | PN ---
Progress Note (short form) - Note Progress Note: no complaints dialyzed yesterday wants to go home drinking water no abdominal pain doesnt like the food Vital Signs Period Temp Pulse Resp BP Sys/Leo Pulse Ox Last 24 Hr 98.1 F-99 F 68-86 15-27 89-132/44-68 98 cor-rrr lungs decreased bs at bases abd-soft,nt, +BS ext no edema +adkins CBC, BMP 02/26/20 06:00 02/26/20 06:00 Microbiology 02/25/20 16:15 Urine - Urine - Catheterized Urine Culture - Final NO GROWTH OBTAINED 02/25/20 17:10 Blood - Peripheral Venous Blood Culture - Preliminary NO GROWTH OBTAINED AFTER 24 HOURS, INCUBATION TO CONTINUE FOR 4 DAYS. 02/25/20 17:15 Blood - Peripheral Venous Blood Culture - Preliminary NO GROWTH OBTAINED AFTER 24 HOURS, INCUBATION TO CONTINUE FOR 4 DAYS. blood cultures pending ct abd/pelvis- no acute changes imp/reccd sepsis?-cultures and ct negative, will d/c antiiobitcs acute renal failure with hyperkalemia and acidosis-s/p HD yesterday- now making urine diabetes f/u todays labs Problem List - Problems (1) Sepsis Code(s): A41.9 - SEPSIS, UNSPECIFIED ORGANISM (2) Acute renal failure Code(s): N17.9 - ACUTE KIDNEY FAILURE, UNSPECIFIED Qualifiers: Qualified Code(s): N17.9 - Acute kidney failure, unspecified (3) Hyperkalemia Code(s): E87.5 - HYPERKALEMIA (4) Lactic acidosis Code(s): E87.2 - ACIDOSIS
--- NOTE | 2020-02-27 10:27 | PN ---
Progress Note, Physician Chief Complaint: Acute kidney injury History of Present Illness: Seen and examined in the ICU awake and alert offers no acute complaints s/p 2 dialysis sessions making a good amount of urine now no sob, cp, fever, chills, swelling - Current Medication List Current Medications: Active Medications Aspirin (Asa -) 81 mg PO DAILY [facility] Last Admin: 02/27/20 09:04 Dose: 81 mg Documented by: Clopidogrel Bisulfate (Plavix -) 75 mg PO DAILY [facility] Last Admin: 02/27/20 09:04 Dose: 75 mg Documented by: Sodium Chloride (Normal Saline -) 250 mls @ 3,000 mls/hr IV PRN PRN PRN Reason: Hypotension during Dialysis Stop: 02/26/20 16:35 Sodium Chloride (Normal Saline -) 1,000 mls @ 150 mls/hr IV ASDIR [facility] Last Admin: 02/27/20 00:00 Dose: 150 mls/hr Documented by: Insulin Aspart (Novolog Vial Sliding Scale -) 1 vial SQ [facility]; Protocol Last Admin: 02/27/20 06:21 Dose: Not Given Documented by: Levothyroxine Sodium (Synthroid -) 88 mcg PO DAILY@0700 [facility] Last Admin: 02/27/20 06:21 Dose: 88 mcg Documented by: - Objective Vital Signs: Vital Signs Temperature 98.1 F 02/27/20 06:00 Pulse Rate 68 02/27/20 08:00 Respiratory Rate 21 H 02/27/20 08:00 Blood Pressure 128/63 02/27/20 08:00 O2 Sat by Pulse Oximetry (%) 98 02/26/20 19:48 Constitutional: Yes: No Distress HENT: Yes: Atraumatic Neck: Yes: Supple Cardiovascular: Yes: Regular Rate and Rhythm Respiratory: Yes: Regular Gastrointestinal: Yes: Soft Extremities: No: Cyanosis Edema: Yes Edema: LLE: Trace, RLE: Trace Neurological: Yes: Alert, Oriented Labs: CBC, BMP 02/26/20 06:00 02/26/20 06:00 INR, PTT INR 0.97 (0.83-1.09) 02/25/20 09:00 Assessment/Plan 69 year old male with history of CAD s/p PCI and stent, insulin dependent DM, hypertension, hyperlipidemia who presented with generalized weakness and found to have acute renal failure with hyperkalemia and acidosis. 1. Acute Renal Injury 2. Hyperkalemia in setting of renal injury 3. Anion gap metabolic acidosis 4. Lactic acidosis 5. R/o Sepsis 6. R/o COVID 7. Hypertension 6. Hyperlipidemia 8. IDDM todays labs pending urine output is significantly improved do not antcipate need for dialysis today CT of Abd/Pelvis showed no obstruction Urine studies consistent with pre-renal disease UPCR is 3 Serologic studies pending (HIV negative) Continue NS at 150cc per hour, pending todays labs Trend lactic acid to normal Low potassium diet Avoid NSAIDs Trend renal function and electrolytes daily Thank you Epifanio Patel DO
[2020-02-27] MEDS: SODIUM CHLORIDE 1,000 ML IV SCH ×4 (10:30→23:57)
[2020-02-27 10:41] LABS: HEMATOCRIT 30.8 % (35.4-49); HEMOGLOBIN 10.1 GM/dL (11.7-16.9); MCH 31.5 pg (25.7-33.7); MCHC 32.9 g/dl (32.0-35.9); MEAN CELL VOLUME 95.6 fl (80-96); MEAN PLT VOLUME 8.2 fl (7.5-11.1); PLATELET COUNT 195 K/MM3 (134-434); RBC 3.22 M/mm3 (4.00-5.60); RDW 13.1 % (11.9-15.9); WHITE BLOOD COUNT 7.7 K/mm3 (4.0-10.0)
[2020-02-27 11:16] LABS: ALBUMIN 2.8 g/dl (3.4-5.0); BILIRUBIN,TOTAL 0.4 mg/dL (0.2-1); CALCIUM 7.1 mg/dL (8.5-10.1); MAGNESIUM 2.1 mg/dL (1.8-2.4); POTASSIUM 3.7 mmol/L (3.5-5.1); TOT PROT 5.4 g/dl (6.4-8.2)
[2020-02-27 11:18] LABS: CREATININE 7.4 mg/dL (0.55-1.3)
[2020-02-27] MEDS ORDERED: SODIUM CHLORIDE 250 ML IV PRN (13:50)
[2020-02-28] MEDS: INSULIN SLIDING SCALE (NOVOLOG) 1 VIAL SQ SCH ×4 (06:21→21:33)
[2020-02-28] MEDS: LEVOTHYROXINE NA 88 MCG TABLET (FP) PO SCH (06:21)
[2020-02-28] MEDS: SODIUM CHLORIDE 1,000 ML IV SCH (06:27)
[2020-02-28 08:48] LABS: BASO % 0.6 % (0-2.0); EOS % 2.8 % (0-4.5); HEMATOCRIT 28.9 % (35.4-49); HEMOGLOBIN 9.5 GM/dL (11.7-16.9); LYMPH % 16.3 % (8-40); MCH 31.4 pg (25.7-33.7); MCHC 32.8 g/dl (32.0-35.9); MEAN CELL VOLUME 95.6 fl (80-96); MEAN PLT VOLUME 8.1 fl (7.5-11.1); MONO % 7.7 % (3.8-10.2); NEUT % 72.6 % (42.8-82.8); PLATELET COUNT 187 K/MM3 (134-434); RBC 3.03 M/mm3 (4.00-5.60)
[2020-02-28 09:11] LABS: ALBUMIN 2.7 g/dl (3.4-5.0); BILIRUBIN,TOTAL 0.8 mg/dL (0.2-1); BLOOD UREA NITROGEN 45.6 mg/dL (7-18); CREATININE 6.9 mg/dL (0.55-1.3); MAGNESIUM 2.1 mg/dL (1.8-2.4); PHOSPHOROUS 3.6 mg/dL (2.5-4.9); POTASSIUM 3.5 mmol/L (3.5-5.1); TOT PROT 5.3 g/dl (6.4-8.2)
[2020-02-28] MEDS ORDERED: PT OWN MED DRAWER 7, Y5N ONE (09:17)
[2020-02-28] MEDS ORDERED: SODIUM CHLORIDE 1,000 ML IV SCH (09:41)
[2020-02-28] MEDS: ASPIRIN 81 MG CHEWABLE TABLETS PO SCH (10:34)
[2020-02-28] MEDS: CLOPIDOGREL BISULFATE 75 MG TABLET (FP) PO SCH (10:34)
[2020-02-28] MEDS: SODIUM CHLORIDE 0.45% 1,000 ML IV SCH (11:48)
--- NOTE | 2020-02-28 11:55 | HOSP ---
Physical Examination Vital Signs: Vital Signs Temperature 97.3 F L 02/28/20 10:00 Pulse Rate 65 02/28/20 10:00 Respiratory Rate 18 02/28/20 10:00 Blood Pressure 152/68 02/28/20 10:00 O2 Sat by Pulse Oximetry (%) 96 02/27/20 21:00 Labs: CBC, BMP 02/28/20 07:42 02/28/20 07:42
--- NOTE | 2020-02-28 14:35 | PN ---
Progress Note, Physician History of Present Illness: Pt seen/ examined to our service today Chart reviewed Case d/w ICU attending/ Dr. Degroot as well as pts Private Pmd Pt awake/ comfortable no complains offered denies cp/sob/abd pain passing urine - Current Medication List Current Medications: Active Medications Aspirin (Asa -) 81 mg PO DAILY [facility] 234 BEDS AT [facility] Last Admin: 02/28/20 10:34 Dose: 81 mg Documented by: Clopidogrel Bisulfate (Plavix -) 75 mg PO DAILY [facility] 234 BEDS [facility] Last Admin: 02/28/20 10:34 Dose: 75 mg Documented by: Sodium Chloride (Normal Saline -) 250 mls @ 3,000 mls/hr IV PRN PRN PRN Reason: Hypotension during Dialysis Sodium Chloride (1/2 Normal Saline) 1,000 mls @ 75 mls/hr IV ASDIR [facility]S [facility]CLUDE 234 BEDS AT [facility] Last Admin: 02/28/20 11:48 Dose: 75 mls/hr Documented by: Insulin Aspart (Novolog Vial Sliding Scale -) 1 vial SQ [facility] COUNTS INCLUDE 234 BEDS AT [facility]; Protocol Last Admin: 02/28/20 11:40 Dose: Not Given Documented by: Levothyroxine Sodium (Synthroid -) 88 mcg PO DAILY@0700 [facility] 234 BEDS AT [facility] Last Admin: 02/28/20 06:21 Dose: 88 mcg Documented by: - Objective Vital Signs: Vital Signs Temperature 97.3 F L 02/28/20 10:00 Pulse Rate 65 02/28/20 10:00 Respiratory Rate 18 02/28/20 10:00 Blood Pressure 152/68 02/28/20 10:00 O2 Sat by Pulse Oximetry (%) 96 02/27/20 21:00 Constitutional: Yes: No Distress, Calm, Obese Eyes: Yes: Conjunctiva Clear Neck: Yes: Supple Cardiovascular: Yes: Regular Rate and Rhythm Respiratory: Yes: Diminished Gastrointestinal: Yes: Soft Genitourinary: Yes: Sandoval Present, Other (femoral catheter +). No: Anuria Edema: Yes Edema: LLE: 1+, RLE: 1+ Neurological: Yes: Alert Labs: CBC, BMP 02/28/20 07:42 02/28/20 07:42 INR, PTT INR 0.97 (0.83-1.09) 02/25/20 09:00 Problem List - Problems (1) Diabetes Code(s): E11.9 - TYPE 2 DIABETES MELLITUS WITHOUT COMPLICATIONS (2) Hypertension Code(s): I10 - ESSENTIAL (PRIMARY) HYPERTENSION (3) Acute renal failure Code(s): N17.9 - ACUTE KIDNEY FAILURE, UNSPECIFIED Qualifiers: Acute renal failure type: unspecified Qualified Code(s): N17.9 - Acute kidney failure, unspecified (4) Hyperkalemia Code(s): E87.5 - HYPERKALEMIA (5) Lactic acidosis Code(s): E87.2 - ACIDOSIS (6) Overweight Code(s): E66.3 - OVERWEIGHT Assessment/Plan Getting better passing urine Monitor lytes Monitor bgm Snadoval --Consider removing in am Vascular to follow oob- chair monitor bgm and BP Will follow. d/w Rn also
--- NOTE | 2020-02-28 14:57 | PN ---
Progress Note, Physician Chief Complaint: Acute kidney injury History of Present Illness: Seen and examined at the bedside. Awake and alert. Offers no acute complaints. Denies any chest pain, shortness of breath, abdominal pain, nausea, vomiting, diarrhea. Making a good amount of urine via Sandoval catheter. Has no leg swelling. Last dialysis was Friday. - Current Medication List Current Medications: Active Medications Aspirin (Asa -) 81 mg PO DAILY [facility] Last Admin: 02/28/20 10:34 Dose: 81 mg Documented by: Clopidogrel Bisulfate (Plavix -) 75 mg PO DAILY [facility] Last Admin: 02/28/20 10:34 Dose: 75 mg Documented by: Sodium Chloride (Normal Saline -) 250 mls @ 3,000 mls/hr IV PRN PRN PRN Reason: Hypotension during Dialysis Sodium Chloride (1/2 Normal Saline) 1,000 mls @ 75 mls/hr IV ASDIR [facility] Last Admin: 02/28/20 11:48 Dose: 75 mls/hr Documented by: Insulin Aspart (Novolog Vial Sliding Scale -) 1 vial SQ [facility]; Protocol Last Admin: 02/28/20 11:40 Dose: Not Given Documented by: Levothyroxine Sodium (Synthroid -) 88 mcg PO DAILY@0700 [facility] Last Admin: 02/28/20 06:21 Dose: 88 mcg Documented by: - Objective Vital Signs: Vital Signs Temperature 97.3 F L 02/28/20 10:00 Pulse Rate 65 02/28/20 10:00 Respiratory Rate 18 02/28/20 10:00 Blood Pressure 152/68 02/28/20 10:00 O2 Sat by Pulse Oximetry (%) 96 02/27/20 21:00 Constitutional: Yes: No Distress HENT: Yes: Atraumatic Neck: Yes: Supple Cardiovascular: Yes: Regular Rate and Rhythm Respiratory: Yes: Regular Gastrointestinal: Yes: Soft Extremities: No: Cyanosis Edema: No Neurological: Yes: Alert, Oriented Labs: CBC, BMP 02/28/20 07:42 02/28/20 07:42 INR, PTT INR 0.97 (0.83-1.09) 02/25/20 09:00 Assessment/Plan 69 year old male with history of CAD s/p PCI and stent, insulin dependent DM, hypertension, hyperlipidemia who presented with generalized weakness and found to have acute renal failure with hyperkalemia and acidosis. 1. Acute Renal Injury 2. Hyperkalemia in setting of renal injury 3. Anion gap metabolic acidosis 4. Lactic acidosis 5. R/o Sepsis 6. R/o COVID 7. Hypertension 6. Hyperlipidemia 8. IDDM renal function improving independent of dialysis. Patient is nonoliguric and there is no hyperkalemia noted on examination. Patient does not need dialysis at this time. Femoral dialysis catheter can be removed. No signs of obstruction noted on abdominal imaging. Urine studies consistent with prerenal disease. Serologic workup pending. HIV is negative. Change IV fluids to hypotonic saline at 75 cc/h Trend renal function and electrolytes daily. Thank you Epifanio Patel DO
[2020-02-28 18:05] LABS: HEP B CORE AB, TOT Negative (Negative)
[2020-02-29] MEDS: SODIUM CHLORIDE 0.45% 1,000 ML IV SCH ×3 (02:22→15:33)
[2020-02-29] MEDS: LEVOTHYROXINE NA 88 MCG TABLET (FP) PO SCH (06:06)
[2020-02-29] MEDS: INSULIN SLIDING SCALE (NOVOLOG) 1 VIAL SQ SCH ×4 (06:07→21:29)
[2020-02-29 08:01] LABS: BLOOD UREA NITROGEN 35.8 mg/dL (7-18); CALCIUM 7.6 mg/dL (8.5-10.1); CREATININE 5.2 mg/dL (0.55-1.3); MAGNESIUM 1.8 mg/dL (1.8-2.4); PHOSPHOROUS 3.3 mg/dL (2.5-4.9); POTASSIUM 3.1 mmol/L (3.5-5.1)
--- NOTE | 2020-02-29 09:02 | PN ---
Progress Note (short form) - Note Progress Note: Surgery Note: Lashanda removed this am from the right groin. Pressure held x 10 minutes. No bleeding noted. Dry dressing applied.
[2020-02-29] MEDS ORDERED: POTASSIUM CHLORIDE TABS 20 MEQ TABLET.ER (FP) PO ONE (10:30)
[2020-02-29] MEDS: ASPIRIN 81 MG CHEWABLE TABLETS PO SCH (10:35)
[2020-02-29] MEDS: CLOPIDOGREL BISULFATE 75 MG TABLET (FP) PO SCH (10:35)
--- NOTE | 2020-02-29 11:47 | PN ---
Progress Note (short form) - Note Progress Note: Events noted spoke with PMD- DR De Souza yesterday to give an update Pt is feeling well just had the adkins removed-- did not void yet though he feels he needs to go urinate Vital Signs - 24 hr 02/28/20 02/28/20 02/28/20 14:00 18:00 21:00 Temperature 98.2 F 98.5 F Pulse Rate 79 67 Respiratory 18 18 Rate Blood Pressure 144/69 144/74 O2 Sat by Pulse 98 Oximetry (%) 02/28/20 02/29/20 02/29/20 22:00 01:42 05:00 Temperature 98 F 98.6 F 98.8 F Pulse Rate 67 63 64 Respiratory 20 18 18 Rate Blood Pressure 140/81 153/77 152/79 O2 Sat by Pulse Oximetry (%) 02/29/20 09:00 Temperature 97.8 F Pulse Rate 63 Respiratory 24 H Rate Blood Pressure 155/78 O2 Sat by Pulse Oximetry (%) Current Medications Generic Name Dose Route Start Last Admin Trade Name Freq PRN Reason Stop Dose Admin Aspirin 81 mg 02/28/20 10:00 02/29/20 10:35 Asa - PO 81 mg DAILY [facility] Administration Clopidogrel Bisulfate 75 mg 02/28/20 10:00 02/29/20 10:35 Plavix - PO 75 mg DAILY [facility] Administration Sodium Chloride 250 mls @ 3,000 mls/hr 02/27/20 13:50 Normal Saline - IV PRN PRN Hypotension during Dialysis Sodium Chloride 1,000 mls @ 75 mls/hr 02/28/20 11:15 02/29/20 02:22 1/2 Normal Saline IV 75 mls/hr ASDIR [facility] Administration Insulin Aspart 1 vial 02/27/20 16:30 02/29/20 11:02 Novolog Vial Sliding Scale - SQ Not Given ACHS [facility] Protocol Levothyroxine Sodium 88 mcg 02/28/20 07:00 02/29/20 06:06 Synthroid - PO 88 mcg DAILY@0700 [facility] Administration Laboratory Results - last 24 hr 02/25/20 02/28/20 02/28/20 17:00 17:09 21:31 Sodium Potassium Chloride Carbon Dioxide Anion Gap BUN Creatinine Est GFR (CKD-EPI)AfAm Est GFR (CKD-EPI)NonAf POC Glucometer 143 150 Random Glucose Lactic Acid Calcium Phosphorus Magnesium Hep A IgM Ab Confirm Negative Hepatitis A Ab Total Positive H Hep Bs Antigen Negative Hep Bs Antibody Non reactive Hep B Core Total Ab Negative Hep B Core IgM Ab Negative Hepatitis Be Antibody Negative Hepatitis Be Antigen Negative 02/29/20 02/29/20 02/29/20 05:57 07:00 10:26 Sodium 144 Potassium 3.1 L Chloride 108 H Carbon Dioxide 27 Anion Gap 9 BUN 35.8 H Creatinine 5.2 H Est GFR (CKD-EPI)AfAm 11.91 Est GFR (CKD-EPI)NonAf 10.27 POC Glucometer 116 Random Glucose 125 H Lactic Acid 0.6 Calcium 7.6 L Phosphorus 3.3 Magnesium 1.8 Hep A IgM Ab Confirm Hepatitis A Ab Total Hep Bs Antigen Hep Bs Antibody Hep B Core Total Ab Hep B Core IgM Ab Hepatitis Be Antibody Hepatitis Be Antigen 02/29/20 11:00 Sodium Potassium Chloride Carbon Dioxide Anion Gap BUN Creatinine Est GFR (CKD-EPI)AfAm Est GFR (CKD-EPI)NonAf POC Glucometer 131 Random Glucose Lactic Acid Calcium Phosphorus Magnesium Hep A IgM Ab Confirm Hepatitis A Ab Total Hep Bs Antigen Hep Bs Antibody Hep B Core Total Ab Hep B Core IgM Ab Hepatitis Be Antibody Hepatitis Be Antigen S1 S2 RRR Lungs decreased Abd- soft, NT , obese Trace edema A/P Acute kidney injury requiring dialysis HTN Obesity Diabetes --- renal function getting better -- femoral shiley removed -- restart toprol -- monitor renal function , BP and electrolytes - COVID 19 negative -- HIV , HCV negative Problem List - Problems (1) Acute renal failure Code(s): N17.9 - ACUTE KIDNEY FAILURE, UNSPECIFIED Qualifiers: Acute renal failure type: unspecified Qualified Code(s): N17.9 - Acute kidney failure, unspecified (2) Diabetes Code(s): E11.9 - TYPE 2 DIABETES MELLITUS WITHOUT COMPLICATIONS (3) Hyperkalemia Code(s): E87.5 - HYPERKALEMIA (4) Hypertension Code(s): I10 - ESSENTIAL (PRIMARY) HYPERTENSION (5) Lactic acidosis Code(s): E87.2 - ACIDOSIS (6) Overweight Code(s): E66.3 - OVERWEIGHT
[2020-02-29 16:08] LABS: ATYPICAL pANCA <1:20 titer (Neg:<1:20); C-ANCA <1:20 titer (Neg:<1:20)
--- NOTE | 2020-02-29 17:42 | PN ---
Progress Note, Physician Chief Complaint: Acute kidney injury History of Present Illness: Seen and examined at the bedside. Awake and alert. Offers no acute complaints. Denies any chest pain, shortness of breath, abdominal pain, nausea, vomiting, diarrhea. - Current Medication List Current Medications: Active Medications Aspirin (Asa -) 81 mg PO DAILY [facility] Last Admin: 02/29/20 10:35 Dose: 81 mg Documented by: Clopidogrel Bisulfate (Plavix -) 75 mg PO DAILY [facility] Last Admin: 02/29/20 10:35 Dose: 75 mg Documented by: Sodium Chloride (Normal Saline -) 250 mls @ 3,000 mls/hr IV PRN PRN PRN Reason: Hypotension during Dialysis Sodium Chloride (1/2 Normal Saline) 1,000 mls @ 75 mls/hr IV ASDIR [facility] Last Admin: 02/29/20 15:33 Dose: 75 mls/hr Documented by: Insulin Aspart (Novolog Vial Sliding Scale -) 1 vial SQ [facility]; Protocol Last Admin: 02/29/20 16:58 Dose: 2 units Documented by: Levothyroxine Sodium (Synthroid -) 88 mcg PO DAILY@0700 [facility] Last Admin: 02/29/20 06:06 Dose: 88 mcg Documented by: Metoprolol Succinate (Toprol Xl -) 50 mg PO DAILY [facility] Last Admin: 02/29/20 13:04 Dose: 50 mg Documented by: - Objective Vital Signs: Vital Signs Temperature 97.6 F 02/29/20 13:00 Pulse Rate 69 02/29/20 13:00 Respiratory Rate 18 02/29/20 13:00 Blood Pressure 156/74 02/29/20 13:00 O2 Sat by Pulse Oximetry (%) 97 02/29/20 13:00 Constitutional: Yes: No Distress Eyes: Yes: Conjunctiva Clear HENT: Yes: Atraumatic Neck: Yes: Supple Cardiovascular: Yes: Regular Rate and Rhythm Respiratory: Yes: Regular Gastrointestinal: Yes: Soft Extremities: No: Cyanosis Edema: No Labs: CBC, BMP 02/28/20 07:42 02/29/20 07:00 INR, PTT INR 0.97 (0.83-1.09) 02/25/20 09:00 Assessment/Plan 69 year old male with history of CAD s/p PCI and stent, insulin dependent DM, hypertension, hyperlipidemia who presented with generalized weakness and found to have acute renal failure with hyperkalemia and acidosis. 1. Acute Renal Injury 2. Hyperkalemia in setting of renal injury 3. Anion gap metabolic acidosis 4. Lactic acidosis 5. R/o Sepsis 6. R/o COVID 7. Hypertension 6. Hyperlipidemia 8. IDDM Renal function improving Patient is nonoliguric and there is no hyperkalemia noted on examination. Serologic work up is negative Would not resume SABA or diuretic until renal function is at baseline Can d/c IVF today and monitor renal function on oral intake alone Trend renal function and electrolytes daily. Thank you Epifanio Patel DO
[2020-03-01] MEDS: SODIUM CHLORIDE 0.45% 1,000 ML IV SCH ×2 (05:18→13:44)
[2020-03-01] MEDS: LEVOTHYROXINE NA 88 MCG TABLET (FP) PO SCH (06:17)
[2020-03-01] MEDS: INSULIN SLIDING SCALE (NOVOLOG) 1 VIAL SQ SCH ×2 (06:17→11:10)
[2020-03-01 06:40] VITALS: PULSE 70
[2020-03-01 08:14] LABS: HEMATOCRIT 31.6 % (35.4-49); HEMOGLOBIN 10.5 GM/dL (11.7-16.9); MCH 31.5 pg (25.7-33.7); MCHC 33.3 g/dl (32.0-35.9); MEAN CELL VOLUME 94.6 fl (80-96); MEAN PLT VOLUME 7.8 fl (7.5-11.1); PLATELET COUNT 241 K/MM3 (134-434); RBC 3.34 M/mm3 (4.00-5.60); RDW 12.8 % (11.9-15.9)
[2020-03-01 08:39] LABS: BILIRUBIN,TOTAL 0.7 mg/dL (0.2-1); BLOOD UREA NITROGEN 27.4 mg/dL (7-18); CREATININE 3.4 mg/dL (0.55-1.3); POTASSIUM 3.3 mmol/L (3.5-5.1)
[2020-03-01] MEDS: CLOPIDOGREL BISULFATE 75 MG TABLET (FP) PO SCH (09:37)
[2020-03-01] MEDS: ASPIRIN 81 MG CHEWABLE TABLETS PO SCH (09:37)
[2020-03-01 10:21] VITALS: BP 160/77; TEMP 98.4
--- NOTE | 2020-03-01 12:02 | PN ---
Progress Note (short form) - Note Progress Note: see dc summary Problem List - Problems (1) Acute renal failure Code(s): N17.9 - ACUTE KIDNEY FAILURE, UNSPECIFIED Qualifiers: Acute renal failure type: unspecified Qualified Code(s): N17.9 - Acute kidney failure, unspecified (2) Diabetes Code(s): E11.9 - TYPE 2 DIABETES MELLITUS WITHOUT COMPLICATIONS (3) Hyperkalemia Code(s): E87.5 - HYPERKALEMIA (4) Hypertension Code(s): I10 - ESSENTIAL (PRIMARY) HYPERTENSION (5) Lactic acidosis Code(s): E87.2 - ACIDOSIS (6) Overweight Code(s): E66.3 - OVERWEIGHT
--- NOTE | 2020-03-01 12:19 | DS ---
Physical Examination Vital Signs: Vital Signs Temperature 98.4 F 03/01/20 10:00 Pulse Rate 70 03/01/20 10:00 Respiratory Rate 18 03/01/20 10:00 Blood Pressure 160/77 03/01/20 10:00 O2 Sat by Pulse Oximetry (%) 95 03/01/20 10:00 Constitutional: Yes: No Distress, Calm Cardiovascular: Yes: Regular Rate and Rhythm Respiratory: Yes: CTA Bilaterally Gastrointestinal: Yes: Normal Bowel Sounds, Soft, Abdomen, Obese. No: Tenderness Edema: No Labs: CBC, BMP 03/01/20 07:28 03/01/20 07:28 Discharge Summary Problems reviewed: Yes Reason For Visit: ACUTE KIDNEY INJ,INSULIN DEP DM,HYPERKALEMIA Current Active Problems Acute renal failure (Acute) Diabetes (Acute) Hyperkalemia (Acute) Hypertension (Acute) Lactic acidosis (Acute) Overweight (Acute) Sepsis (Acute) Uremia (Acute) Hospital Course: - History of Present Illness Chief Complaint: Weakness History of Present Illness: This is a 69 year old male with history of CAD s/p PCI and stent, insulin dependent DM, hypertension, hyperlipidemia who presented with generalized weakness and found to have acute renal failure with hyperkalemia and acidosis. Pt seen and examined in the ED. Is accompanied by his . He is awake and alert. Reports fatigue x 1 week. Has anorexia with some nausea and vomiting. Denies any history of kidney disease, stones or recurrent urinary tract infections. Denies any NSAID use. No recent contrast exposure. No flank pain. Has been making less urine. No gross hematuria noted. No history of enlarged prostate. HOSPITAL COURSE- was emergency dialysed admitted in ICU seen by Nephrology sepsis ruled out COVID 19 negative per Nephrology --- Assessment/Plan 69 year old male with history of CAD s/p PCI and stent, insulin dependent DM, hypertension, hyperlipidemia who presented with generalized weakness and found to have acute renal failure with hyperkalemia and acidosis. 1. Acute Renal Injury 2. Hyperkalemia in setting of renal injury 3. Anion gap metabolic acidosis 4. Lactic acidosis 5. R/o Sepsis 6. R/o COVID 7. Hypertension 6. Hyperlipidemia 8. IDDM Renal function improving Patient is nonoliguric and there is no hyperkalemia noted on examination. Serologic work up is negative Would not resume SABA or diuretic until renal function is at baseline Can d/c IVF today and monitor renal function on oral intake alone Trend renal function and electrolytes daily. stable for dc to home advised to follow up with renal and PMD in 1 week-- need to check labs and encourage fluids No ACEI, ARBS, NSAIDS Condition: Improved - Instructions Referrals: Epifanio Patel MD [Staff Physician] - 1 Week Ozzie De Souza MD [Primary Care Provider] - Disposition: HOME - Home Medications Comprehensive Discharge Medication List: Ambulatory Orders Clopidogrel Bisulfate [Plavix] 75 mg PO DAILY #30 tablet 12/09/13 Metoprolol Succinate 50 mg PO DAILY 12/09/13 Metformin HCl 500 mg PO BID #14 tablet 05/30/14 Aspirin [ASA -] 81 mg PO DAILY 02/26/20 Levothyroxine [Synthroid -] 88 mcg PO DAILY 02/26/20 Lisinopril/Hydrochlorothiazide [Lisinopril-Hctz 20-12.5 mg Tab] 1 each PO DAILY 02/26/20 Rosuvastatin [Crestor -] 10 mg PO DAILY 02/26/20
[2020-03-01] MEDS ORDERED: amLODIPine BESYLATE 5 MG TABLET (FP) PO ONE (12:21)
--- NOTE | 2020-03-01 12:49 | HP ---
Admitting History and Physical - Past Medical History Cardiovascular: Yes: CAD, HTN, Hyperlipdemia Endocrine: Yes: Diabetes Insipidus - Smoking History Smoking history: Never smoked - Alcohol/Substance Use Hx Alcohol Use: No Home Medications - Allergies Allergies/Adverse Reactions: Allergies Allergy/AdvReac Type Severity Reaction Status Date / Time No Known Allergies Allergy Verified 02/25/20 08:09 - Home Medications Home Medications: Ambulatory Orders Clopidogrel Bisulfate [Plavix] 75 mg PO DAILY #30 tablet 12/09/13 Metoprolol Succinate 50 mg PO DAILY 12/09/13 Aspirin [ASA -] 81 mg PO DAILY 02/26/20 Levothyroxine [Synthroid -] 88 mcg PO DAILY 02/26/20 Rosuvastatin [Crestor -] 10 mg PO DAILY 02/26/20 Amlodipine Besylate [Norvasc -] 5 mg PO DAILY #30 tablet 03/01/20 Glipizide Xl [Glucotrol Xl -] 5 mg PO DAILY #30 tab.er.24 03/01/20 Physical Examination Vital Signs: Vital Signs Temperature 98.4 F 03/01/20 10:00 Pulse Rate 70 03/01/20 10:00 Respiratory Rate 18 03/01/20 10:00 Blood Pressure 160/77 03/01/20 10:00 O2 Sat by Pulse Oximetry (%) 95 03/01/20 10:00 Labs: CBC, BMP 03/01/20 07:28 03/01/20 07:28 Problem List - Problems (1) Acute renal failure Code(s): N17.9 - ACUTE KIDNEY FAILURE, UNSPECIFIED Qualifiers: Acute renal failure type: unspecified Qualified Code(s): N17.9 - Acute kidn ey failure, unspecified (2) Diabetes Code(s): E11.9 - TYPE 2 DIABETES MELLITUS WITHOUT COMPLICATIONS (3) Hyperkalemia Code(s): E87.5 - HYPERKALEMIA (4) Hypertension Code(s): I10 - ESSENTIAL (PRIMARY) HYPERTENSION (5) Lactic acidosis Code(s): E87.2 - ACIDOSIS (6) Overweight Code(s): E66.3 - OVERWEIGHT
--- NOTE | 2020-03-01 17:22 | PN ---
Progress Note, Physician Chief Complaint: Acute kidney injury History of Present Illness: Seen and examined at the bedside. offers no acute complaints at this time. Reports good urine output. He denies shortness of breath, chest pain, mouth pain, nausea, vomiting, diarrhea. For discharge home today. - Objective Vital Signs: Vital Signs Temperature 98.4 F 03/01/20 10:00 Pulse Rate 70 03/01/20 10:00 Respiratory Rate 18 03/01/20 10:00 Blood Pressure 160/77 03/01/20 10:00 O2 Sat by Pulse Oximetry (%) 95 03/01/20 10:00 Constitutional: Yes: No Distress Neck: Yes: Supple Cardiovascular: Yes: Regular Rate and Rhythm Respiratory: Yes: Regular Extremities: No: Cyanosis Edema: No Labs: CBC, BMP 03/01/20 07:28 03/01/20 07:28 INR, PTT INR 0.97 (0.83-1.09) 02/25/20 09:00 Assessment/Plan 69 year old male with history of CAD s/p PCI and stent, insulin dependent DM, hypertension, hyperlipidemia who presented with generalized weakness and found to have acute renal failure with hyperkalemia and acidosis. 1. Acute Renal Injury 2. Hyperkalemia in setting of renal injury 3. Anion gap metabolic acidosis 4. Lactic acidosis 5. R/o Sepsis 6. R/o COVID 7. Hypertension 6. Hyperlipidemia 8. IDDM renal function is overall improved. Etiology of acute kidney injury likely hemodynamic plus minus hyperkalemia. Will maintain off of SABA inhibitor and diuretic on discharge. Patient advised to avoid any NSAIDs, Fleet enemas or IV contrast. To follow-up in office within 1 week for acute kidney injury monitoring. Case discussed with primary team and patient is stable for discharge. Thank you Epifanio Patel DO
== END 2020-03-01 15:45 | disposition home or self-care (01) | DRG 683 ==
LOC: JER 08:06 → JERBED 11:08 → JICU 15:37 → J5S 02-27 14:29
PROVIDERS: ADMIT Internal Medicine Pulmonary Disease; ATTEND Internal Medicine
PROC: 06HM33Z Insertion of Infusion Device into Right Femoral Vein, Percutaneous Approach (ICD-10-PCS; principal; 2020-02-25)
PROC: B54BZZA Ultrasonography of Right Lower Extremity Veins, Guidance (ICD-10-PCS; 2020-02-25)
PROC: 5A1D70Z Performance of Urinary Filtration, Intermittent, Less than 6 Hours Per Day (ICD-10-PCS; 2020-02-25)
PROC: 5A1D70Z Performance of Urinary Filtration, Intermittent, Less than 6 Hours Per Day (ICD-10-PCS; 2020-02-25)
DX: N17.9 Acute kidney failure, unspecified (principal); E87.2 Acidosis; I10 Essential (primary) hypertension; E78.5 Hyperlipidemia, unspecified; E11.9 Type 2 diabetes mellitus without complications; E87.5 Hyperkalemia; I25.10 Atherosclerotic heart disease of native coronary artery without angina pectoris; E66.9 Obesity, unspecified; Z68.38 Body mass index [BMI] 38.0-38.9, adult; R63.0 Anorexia; Z95.5 Presence of coronary angioplasty implant and graft; Z79.4 Long term (current) use of insulin
CPT/HCPCS: 36415; 36600; 71045-TC-FY; 74176-TC; 76775-TC; 76856-TC; 80048; 80053; 81003; 82010; 82550; 82553; 82565; 82803; 82962; 83520; 83605; 83690; 83735; 84100; 84156; 84484; 84540; 85025; 85027; 85610; 85730; 86038; 86256; 86704; 86706; 86707; 86708; 86709; 86803; 87040; 87086; 87205; 87340; 87389; 93005; 93010; 99285-25; J1644; U0003

== ENCOUNTER 2020-10-09 08:10 | Inpatient (IN) | payer OTHER ==
[2020-10-09 08:21] VITALS: BMI 36.1
[2020-10-09] MEDS ORDERED: SODIUM CHLORIDE 0.9% 500 ML INFUS.BAG IV ONE (08:35)
[2020-10-09] MEDS ORDERED: LACTATED RINGERS SOLUTION 1000 ML INFUS.BAG IV ONE ×2 (08:43→10:40)
[2020-10-09 09:22] LABS: VENOUS BASE EXCESS -6.9 mmol/L (-2-2); VENOUS O2 SATURATION 41.3 % (70-80); VENOUS PCO2 42.4 mmHg (38-52); VENOUS PH 7.281 (7.310-7.410)
[2020-10-09 09:31] LABS: BASO % 0.4 % (0-2.0); HEMATOCRIT 37.1 % (35.4-49); HEMOGLOBIN 12.2 GM/dL (11.7-16.9); LYMPH % 11.6 % (8-40); MCH 30.9 pg (25.7-33.7); MCHC 32.8 g/dl (32.0-35.9); MEAN CELL VOLUME 94.2 fl (80-96); MEAN PLT VOLUME 8.6 fl (7.5-11.1); MONO % 7.8 % (3.8-10.2); NEUT % 80.2 % (42.8-82.8); PLATELET COUNT 212 K/MM3 (134-434); RBC 3.93 M/mm3 (4.00-5.60); RDW 13.4 % (11.9-15.9); WHITE BLOOD COUNT 4.5 K/mm3 (4.0-10.0)
[2020-10-09] MEDS ORDERED: LIDOCAINE HCL 2% (50ML VIAL) INF ONE (09:41)
[2020-10-09 09:49] LABS: CHLORIDE 103 mmol/L (98-107); SODIUM 134 mmol/L (136-145)
[2020-10-09 09:52] LABS: ALBUMIN 3.6 g/dl (3.4-5.0); ANION GAP 7 MMOL/L (8-16); BLOOD UREA NITROGEN 50.2 mg/dL (7-18); CALCIUM 8.4 mg/dL (8.5-10.1); CO2 23 mmol/L (21-32); GLUCOSE,RANDOM 220 mg/dL (74-106)
[2020-10-09 09:54] LABS: SGOT/AST 45 U/L (15-37); SGPT/ALT 21 U/L (13-61)
[2020-10-09 09:56] LABS: ALK PHOS 58 U/L (45-117); BILIRUBIN,TOTAL 0.5 mg/dL (0.2-1); MAGNESIUM 1.8 mg/dL (1.8-2.4); TOT PROT 7.2 g/dl (6.4-8.2)
[2020-10-09 09:59] LABS: PHOSPHOROUS 3.7 mg/dL (2.5-4.9)
[2020-10-09 10:07] LABS: BLOOD UREA NITROGEN 49.4 mg/dL (7-18); CALCIUM 8.6 mg/dL (8.5-10.1)
[2020-10-09] MEDS ORDERED: SODIUM CHLORIDE 1,000 ML IV SCH (11:00)
[2020-10-09 13:13] LABS: EPI CELLS 11 /uL (0-25.1); HYALINE CASTS 3 /uL (0-3.1); URINE APPEARANCE CLEAR; URINE BACTERIA 18 /uL (0-1359); URINE BILIRUBIN NEGATIVE (NEGATIVE); URINE COLOR YELLOW; URINE GLUCOSE (UA) NEGATIVE (NEGATIVE); URINE KETONE TRACE (NEGATIVE); URINE LEUK ESTERASE NEGATIVE (NEGATIVE); URINE NITRITE NEGATIVE (NEGATIVE); URINE PROTEIN 2+ (NEGATIVE); URINE RBC 23 /uL (0-23.9); URINE UROBILINOGEN 0.2 mg/dL (0.2-1.0); URINE WBC 4 /uL (0-25.8)
[2020-10-09] MEDS: INSULIN SLIDING SCALE (NOVOLOG) 1 VIAL SQ SCH (14:35)
[2020-10-10] MEDS: ACETAMINOPHEN 325 MG TABLET (FP) PO PRN (02:56)
[2020-10-10] MEDS: LEVOTHYROXINE NA 88 MCG TABLET (FP) PO SCH (06:06)
[2020-10-10] MEDS: INSULIN SLIDING SCALE (NOVOLOG) 1 VIAL SQ SCH ×2 (06:08→17:11)
[2020-10-10 08:29] LABS: HEMOGLOBIN 11.2 GM/dL (11.7-16.9); MCH 31.5 pg (25.7-33.7); MCHC 33.9 g/dl (32.0-35.9); MEAN CELL VOLUME 92.9 fl (80-96); MEAN PLT VOLUME 8.4 fl (7.5-11.1); PLATELET COUNT 197 K/MM3 (134-434); RBC 3.55 M/mm3 (4.00-5.60); WHITE BLOOD COUNT 3.7 K/mm3 (4.0-10.0)
[2020-10-10 08:47] LABS: POTASSIUM 4.9 mmol/L (3.5-5.1)
[2020-10-10 08:54] LABS: ALBUMIN 3.2 g/dl (3.4-5.0); BLOOD UREA NITROGEN 47.6 mg/dL (7-18); CALCIUM 8.2 mg/dL (8.5-10.1); MAGNESIUM 1.8 mg/dL (1.8-2.4)
[2020-10-10 08:56] LABS: CHOLESTEROL 127 mg/dL (50-200)
[2020-10-10 08:57] LABS: CREATININE 2.6 mg/dL (0.55-1.3); LDL CHOLESTEROL (ONLY SJRH) 61 mg/dL (5-100); PHOSPHOROUS 3.4 mg/dL (2.5-4.9); TRIGLYCERIDES 195 mg/dL (0-150)
[2020-10-10 08:59] LABS: BILIRUBIN,TOTAL 0.4 mg/dL (0.2-1); TOT PROT 6.2 g/dl (6.4-8.2)
[2020-10-10 09:01] LABS: HDL CHOLESTEROL 38 mg/dL (40-60)
[2020-10-10] MEDS: CLOPIDOGREL BISULFATE 75 MG TABLET (FP) PO SCH (10:26)
[2020-10-10] MEDS: ASPIRIN 81 MG CHEWABLE TABLETS PO SCH (10:26)
[2020-10-10] MEDS: ENOXAPARIN NA (PORCINE) 30 MG/0.3 ML DISP.SYRIN SQ SCH (10:27)
[2020-10-10] MEDS ORDERED: SODIUM CHLORIDE 1,000 ML IV SCH (13:22)
[2020-10-10] MEDS: ROSUVASTATIN CA 10 MG TABLET (FP) PO SCH (22:05)
[2020-10-10] MEDS ORDERED: ACETAMINOPHEN 325 MG TABLET (FP) PO ONE (23:10)
[2020-10-11] MEDS: LEVOTHYROXINE NA 88 MCG TABLET (FP) PO SCH (06:22)
[2020-10-11] MEDS: INSULIN SLIDING SCALE (NOVOLOG) 1 VIAL SQ SCH ×2 (06:46→18:39)
[2020-10-11 08:29] LABS: BASO % 0.5 % (0-2.0); EOS % 0.1 % (0-4.5); HEMATOCRIT 35.8 % (35.4-49); HEMOGLOBIN 12.1 GM/dL (11.7-16.9); LYMPH % 22.3 % (8-40); MCH 31.6 pg (25.7-33.7); MCHC 33.7 g/dl (32.0-35.9); MEAN CELL VOLUME 93.8 fl (80-96); MEAN PLT VOLUME 8.6 fl (7.5-11.1); MONO % 4.8 % (3.8-10.2); NEUT % 72.3 % (42.8-82.8); PLATELET COUNT 163 K/MM3 (134-434); RBC 3.82 M/mm3 (4.00-5.60); RDW 13.2 % (11.9-15.9); WHITE BLOOD COUNT 3.9 K/mm3 (4.0-10.0)
[2020-10-11 08:44] LABS: POTASSIUM 4.7 mmol/L (3.5-5.1)
[2020-10-11 08:49] LABS: BLOOD UREA NITROGEN 30.6 mg/dL (7-18)
[2020-10-11 08:50] LABS: CALCIUM 8.2 mg/dL (8.5-10.1)
[2020-10-11 08:52] LABS: CREATININE 1.9 mg/dL (0.55-1.3)
[2020-10-11] MEDS: CLOPIDOGREL BISULFATE 75 MG TABLET (FP) PO SCH (10:28)
[2020-10-11] MEDS: ASPIRIN 81 MG CHEWABLE TABLETS PO SCH (10:28)
[2020-10-11] MEDS: ENOXAPARIN NA (PORCINE) 30 MG/0.3 ML DISP.SYRIN SQ SCH (10:29)
[2020-10-11] MEDS: ACETAMINOPHEN 325 MG TABLET (FP) PO PRN ×2 (10:48→23:32)
[2020-10-11] MEDS ORDERED: SODIUM CHLORIDE 1,000 ML IV SCH (12:12)
[2020-10-11] MEDS: SODIUM CHLORIDE 1,000 ML IV SCH (14:00)
[2020-10-11] MEDS: ROSUVASTATIN CA 10 MG TABLET (FP) PO SCH (21:55)
[2020-10-12] MEDS: LEVOTHYROXINE NA 88 MCG TABLET (FP) PO SCH (06:54)
[2020-10-12] MEDS: INSULIN SLIDING SCALE (NOVOLOG) 1 VIAL SQ SCH ×2 (06:54→17:15)
[2020-10-12 08:11] LABS: BASO % 0.2 % (0-2.0); EOS % 0.1 % (0-4.5); HEMATOCRIT 32.9 % (35.4-49); HEMOGLOBIN 11.3 GM/dL (11.7-16.9); LYMPH % 17.9 % (8-40); MCH 31.6 pg (25.7-33.7); MCHC 34.3 g/dl (32.0-35.9); MEAN CELL VOLUME 92.2 fl (80-96); MEAN PLT VOLUME 7.7 fl (7.5-11.1); MONO % 3.1 % (3.8-10.2); NEUT % 78.7 % (42.8-82.8); PLATELET COUNT 195 K/MM3 (134-434); RBC 3.57 M/mm3 (4.00-5.60); RDW 13.1 % (11.9-15.9)
[2020-10-12 08:30] LABS: POTASSIUM 4.1 mmol/L (3.5-5.1)
[2020-10-12 08:33] LABS: BLOOD UREA NITROGEN 22.8 mg/dL (7-18); MAGNESIUM 1.5 mg/dL (1.8-2.4)
[2020-10-12 08:36] LABS: CREATININE 1.6 mg/dL (0.55-1.3)
[2020-10-12 08:37] LABS: PHOSPHOROUS 2.1 mg/dL (2.5-4.9)
[2020-10-12] MEDS: ACETAMINOPHEN 325 MG TABLET (FP) PO PRN (10:00)
[2020-10-12] MEDS: ENOXAPARIN NA (PORCINE) 30 MG/0.3 ML DISP.SYRIN SQ SCH (10:15)
[2020-10-12] MEDS: CLOPIDOGREL BISULFATE 75 MG TABLET (FP) PO SCH (10:15)
[2020-10-12] MEDS: ASPIRIN 81 MG CHEWABLE TABLETS PO SCH (10:15)
[2020-10-12] MEDS: MAGNESIUM 1GM/D5W - 1 GM/100 ML IVPB IVPB SCH ×2 (12:00→13:01)
[2020-10-12] MEDS ORDERED: ALBUTEROL SO4 HFA INHALER IH PRN (15:21)
[2020-10-12] MEDS ORDERED: REMDESIVIR 200 MG in SODIUM CHLORIDE 210 ML IVPB ONE (16:00)
[2020-10-12] MEDS: SODIUM CHLORIDE 1,000 ML IV SCH (17:04)
[2020-10-12] MEDS: DEXAMETHASONE SOD PHOSPHATE 10 MG/1 ML VIAL IVPUSH SCH (17:07)
[2020-10-12] MEDS: BUDESONIDE/FORMETEROL FUMARATE 160/4.5 mcg INHALER IH SCH (22:19)
[2020-10-12] MEDS: ROSUVASTATIN CA 10 MG TABLET (FP) PO SCH (22:20)
[2020-10-13] MEDS: INSULIN SLIDING SCALE (NOVOLOG) 1 VIAL SQ SCH ×2 (06:02→17:41)
[2020-10-13] MEDS: LEVOTHYROXINE NA 88 MCG TABLET (FP) PO SCH (06:02)
[2020-10-13] MEDS: DEXAMETHASONE SOD PHOSPHATE 10 MG/1 ML VIAL IVPUSH SCH (10:49)
[2020-10-13] MEDS: ASPIRIN 81 MG CHEWABLE TABLETS PO SCH (10:53)
[2020-10-13] MEDS: CLOPIDOGREL BISULFATE 75 MG TABLET (FP) PO SCH (10:53)
[2020-10-13] MEDS: ENOXAPARIN NA (PORCINE) 40 MG/0.4 ML DISP.SYRIN SQ SCH (10:53)
[2020-10-13] MEDS: BUDESONIDE/FORMETEROL FUMARATE 160/4.5 mcg INHALER IH SCH ×2 (11:03→22:17)
[2020-10-13] MEDS: FAMOTIDINE 20 MG TABLET PO SCH (13:39)
[2020-10-13] MEDS: SODIUM CHLORIDE 1,000 ML IV SCH (14:00)
[2020-10-13] MEDS: REMDESIVIR 100 MG in SODIUM CHLORIDE 230 ML IVPB SCH (16:04)
[2020-10-13] MEDS: ROSUVASTATIN CA 10 MG TABLET (FP) PO SCH (22:16)
[2020-10-13] MEDS: INSULIN (LEVEMIR) 100 UNITS/ML UNITS SQ SCH (22:16)
[2020-10-14] MEDS: LEVOTHYROXINE NA 88 MCG TABLET (FP) PO SCH (06:01)
[2020-10-14] MEDS: INSULIN SLIDING SCALE (NOVOLOG) 1 VIAL SQ SCH ×2 (06:01→16:15)
[2020-10-14] MEDS: DEXAMETHASONE SOD PHOSPHATE 10 MG/1 ML VIAL IVPUSH SCH (10:29)
[2020-10-14] MEDS: ASPIRIN 81 MG CHEWABLE TABLETS PO SCH (10:29)
[2020-10-14] MEDS: ENOXAPARIN NA (PORCINE) 40 MG/0.4 ML DISP.SYRIN SQ SCH (10:29)
[2020-10-14] MEDS: FAMOTIDINE 20 MG TABLET PO SCH (10:29)
[2020-10-14] MEDS: CLOPIDOGREL BISULFATE 75 MG TABLET (FP) PO SCH (10:29)
[2020-10-14] MEDS: BUDESONIDE/FORMETEROL FUMARATE 160/4.5 mcg INHALER IH SCH ×2 (10:29→21:43)
[2020-10-14 10:55] LABS: POTASSIUM 4.5 mmol/L (3.5-5.1)
[2020-10-14 10:57] LABS: CALCIUM 8.4 mg/dL (8.5-10.1)
[2020-10-14 10:58] LABS: BLOOD UREA NITROGEN 35.2 mg/dL (7-18)
[2020-10-14 11:01] LABS: CREATININE 1.5 mg/dL (0.55-1.3)
[2020-10-14] MEDS: REMDESIVIR 100 MG in SODIUM CHLORIDE 230 ML IVPB SCH (15:54)
[2020-10-14] MEDS: SODIUM CHLORIDE 1,000 ML IV SCH (15:59)
[2020-10-14] MEDS: INSULIN (LEVEMIR) 100 UNITS/ML UNITS SQ SCH (21:44)
[2020-10-14] MEDS: ROSUVASTATIN CA 10 MG TABLET (FP) PO SCH (21:44)
[2020-10-14] MEDS ORDERED: INSULIN (NOVOLOG) ASPART 100 UNITS/ML 10ML VIAL SQ ONE (22:06)
[2020-10-15] MEDS: LEVOTHYROXINE NA 88 MCG TABLET (FP) PO SCH (06:23)
[2020-10-15] MEDS: INSULIN SLIDING SCALE (NOVOLOG) 1 VIAL SQ SCH ×2 (06:23→17:15)
[2020-10-15 08:41] LABS: BASO % 0.3 % (0-2.0); HEMATOCRIT 34.5 % (35.4-49); HEMOGLOBIN 11.9 GM/dL (11.7-16.9); LYMPH % 7.1 % (8-40); MCH 31.5 pg (25.7-33.7); MCHC 34.6 g/dl (32.0-35.9); MEAN PLT VOLUME 7.8 fl (7.5-11.1); MONO % 5.7 % (3.8-10.2); NEUT % 86.9 % (42.8-82.8); PLATELET COUNT 378 K/MM3 (134-434); RDW 12.8 % (11.9-15.9); WHITE BLOOD COUNT 9.1 K/mm3 (4.0-10.0)
[2020-10-15 09:02] LABS: POTASSIUM 4.4 mmol/L (3.5-5.1)
[2020-10-15] MEDS: ENOXAPARIN NA (PORCINE) 40 MG/0.4 ML DISP.SYRIN SQ SCH (09:04)
[2020-10-15] MEDS: FAMOTIDINE 20 MG TABLET PO SCH (09:04)
[2020-10-15] MEDS: DEXAMETHASONE SOD PHOSPHATE 10 MG/1 ML VIAL IVPUSH SCH (09:04)
[2020-10-15] MEDS: ASPIRIN 81 MG CHEWABLE TABLETS PO SCH (09:04)
[2020-10-15] MEDS: CLOPIDOGREL BISULFATE 75 MG TABLET (FP) PO SCH (09:05)
[2020-10-15] MEDS: BUDESONIDE/FORMETEROL FUMARATE 160/4.5 mcg INHALER IH SCH ×2 (09:05→21:42)
[2020-10-15 09:09] LABS: BILIRUBIN,TOTAL 0.4 mg/dL (0.2-1); TOT PROT 6.3 g/dl (6.4-8.2)
[2020-10-15 09:19] LABS: CALCIUM 9.3 mg/dL (8.5-10.1)
[2020-10-15 09:20] LABS: ALBUMIN 3.2 g/dl (3.4-5.0); BLOOD UREA NITROGEN 40.2 mg/dL (7-18)
[2020-10-15 09:23] LABS: CREATININE 1.5 mg/dL (0.55-1.3)
[2020-10-15] MEDS: REMDESIVIR 100 MG in SODIUM CHLORIDE 230 ML IVPB SCH (17:15)
[2020-10-15] MEDS: INSULIN (LEVEMIR) 100 UNITS/ML UNITS SQ SCH (21:45)
[2020-10-15] MEDS: ROSUVASTATIN CA 10 MG TABLET (FP) PO SCH (21:46)
[2020-10-15] MEDS ORDERED: INSULIN (NOVOLOG) ASPART 100 UNITS/ML 10ML VIAL SQ ONE (21:58)
[2020-10-16] MEDS: INSULIN SLIDING SCALE (NOVOLOG) 1 VIAL SQ SCH ×2 (06:42→16:41)
[2020-10-16] MEDS: LEVOTHYROXINE NA 88 MCG TABLET (FP) PO SCH (07:07)
[2020-10-16] MEDS: CLOPIDOGREL BISULFATE 75 MG TABLET (FP) PO SCH (10:39)
[2020-10-16] MEDS: BUDESONIDE/FORMETEROL FUMARATE 160/4.5 mcg INHALER IH SCH (10:39)
[2020-10-16] MEDS: ENOXAPARIN NA (PORCINE) 40 MG/0.4 ML DISP.SYRIN SQ SCH (10:39)
[2020-10-16] MEDS: ASPIRIN 81 MG CHEWABLE TABLETS PO SCH (10:39)
[2020-10-16] MEDS: DEXAMETHASONE SOD PHOSPHATE 10 MG/1 ML VIAL IVPUSH SCH (10:39)
[2020-10-16] MEDS: FAMOTIDINE 20 MG TABLET PO SCH (10:39)
[2020-10-16 13:48] VITALS: BP 136/77; PULSE 89; TEMP 98.1
[2020-10-16] MEDS: REMDESIVIR 100 MG in SODIUM CHLORIDE 230 ML IVPB SCH ×2 (15:00→16:28)
== END 2020-10-16 21:00 | disposition home or self-care (01) | DRG 177 ==
LOC: JER 08:10 → JERBED 08:45 → J6WEST-2 22:51
PROVIDERS: ADMIT Internal Medicine; ATTEND Internal Medicine
PROC: XW13325 Transfusion of Convalescent Plasma (Nonautologous) into Peripheral Vein, Percutaneous Approach, New Technology Group 5 (ICD-10-PCS; principal; 2020-10-10)
PROC: XW033E5 Introduction of Remdesivir Anti-infective into Peripheral Vein, Percutaneous Approach, New Technology Group 5 (ICD-10-PCS; 2020-10-12)
DX: U07.1 COVID-19 (principal); J12.82 Pneumonia due to coronavirus disease 2019; N17.9 Acute kidney failure, unspecified; I25.10 Atherosclerotic heart disease of native coronary artery without angina pectoris; E78.5 Hyperlipidemia, unspecified; E66.01 Morbid (severe) obesity due to excess calories; Z79.4 Long term (current) use of insulin; Z68.36 Body mass index [BMI] 36.0-36.9, adult; E86.0 Dehydration; E11.22 Type 2 diabetes mellitus with diabetic chronic kidney disease; I12.9 Hypertensive chronic kidney disease with stage 1 through stage 4 chronic kidney disease, or unspecified chronic kidney disease; N18.9 Chronic kidney disease, unspecified; I95.9 Hypotension, unspecified; E87.5 Hyperkalemia; R29.6 Repeated falls; R55 Syncope and collapse
CPT/HCPCS: 36415; 36430; 71045-TC-FY; 76775-TC; 80048; 80053; 80061; 81003; 82436; 82550; 82553; 82565; 82803; 82962; 83036; 83615; 83721; 83735; 84100; 84133; 84156; 84300; 84443; 84484; 85025; 85027; 85379; 86140; 86769; 86850; 86900; 86901; 87040; 87086; 87205; 93005; 93010; 94761; 99285-25; C9399; C9803; J1100; P9017; U0003

== ENCOUNTER 2020-10-19 17:02 | Inpatient (IN) | payer OTHER ==
[2020-10-19] MEDS ORDERED: ACETAMINOPHEN 1000 MG/100 ML VIAL (NON FORMULARY) IVPB ONE (18:24)
[2020-10-19] MEDS ORDERED: ACETAMINOPHEN INJECTION 100 ML IVPB ONE (18:48)
[2020-10-19 19:20] LABS: BASO % 0.4 % (0-2.0); EOS % 0.1 % (0-4.5); HEMATOCRIT 41.1 % (35.4-49); HEMOGLOBIN 13.7 GM/dL (11.7-16.9); LYMPH % 4.9 % (8-40); MCHC 33.2 g/dl (32.0-35.9); MEAN CELL VOLUME 93.3 fl (80-96); MEAN PLT VOLUME 8.8 fl (7.5-11.1); MONO % 3.6 % (3.8-10.2); PLATELET COUNT 560 K/MM3 (134-434); RBC 4.41 M/mm3 (4.00-5.60); RDW 13.2 % (11.9-15.9)
[2020-10-19 19:46] LABS: ALBUMIN 3.1 g/dl (3.4-5.0); BLOOD UREA NITROGEN 52.9 mg/dL (7-18); CALCIUM 9.4 mg/dL (8.5-10.1)
[2020-10-19 19:49] LABS: CREATININE 2.2 mg/dL (0.55-1.3)
[2020-10-19 19:51] LABS: BILIRUBIN,TOTAL 0.8 mg/dL (0.2-1)
[2020-10-19 21:14] LABS: PLATELET ESTIMATE INCREASED
[2020-10-19 21:17] LABS: CALCIUM 9.6 mg/dL (8.5-10.1)
[2020-10-19 21:18] LABS: BLOOD UREA NITROGEN 51.7 mg/dL (7-18)
[2020-10-19 21:21] LABS: CREATININE 2.1 mg/dL (0.55-1.3)
[2020-10-19] MEDS ORDERED: SODIUM CHLORIDE 1,000 ML IV SCH (21:45)
[2020-10-20 03:43] LABS: EPI CELLS 3 /uL (0-25.1); HYALINE CASTS 1 /uL (0-3.1); URINE APPEARANCE CLEAR; URINE BACTERIA 11 /uL (0-1359); URINE BILIRUBIN NEGATIVE (NEGATIVE); URINE COLOR YELLOW; URINE GLUCOSE (UA) 3+ (NEGATIVE); URINE KETONE TRACE (NEGATIVE); URINE LEUK ESTERASE NEGATIVE (NEGATIVE); URINE NITRITE NEGATIVE (NEGATIVE); URINE PROTEIN 1+ (NEGATIVE); URINE RBC 7 /uL (0-23.9); URINE UROBILINOGEN 0.2 mg/dL (0.2-1.0); URINE WBC 3 /uL (0-25.8)
[2020-10-20] MEDS ORDERED: ALBUTEROL SO4 HFA INHALER IH PRN (04:26)
[2020-10-20 05:13] VITALS: BMI 32.1
[2020-10-20] MEDS: glipiZIDE-XL 5 MG TAB.ER.24 PO SCH (06:05)
[2020-10-20] MEDS: LEVOTHYROXINE NA 88 MCG TABLET (FP) PO SCH (06:05)
[2020-10-20] MEDS: INSULIN SLIDING SCALE (NOVOLOG) 1 VIAL SQ SCH ×4 (06:15→22:16)
[2020-10-20 08:20] LABS: BASO % 0.3 % (0-2.0); EOS % 0.3 % (0-4.5); HEMATOCRIT 36.9 % (35.4-49); HEMOGLOBIN 12.9 GM/dL (11.7-16.9); LYMPH % 6.7 % (8-40); MCH 31.8 pg (25.7-33.7); MCHC 34.8 g/dl (32.0-35.9); MEAN CELL VOLUME 91.5 fl (80-96); MEAN PLT VOLUME 8.1 fl (7.5-11.1); MONO % 5.7 % (3.8-10.2); PLATELET COUNT 432 K/MM3 (134-434); RBC 4.04 M/mm3 (4.00-5.60); WHITE BLOOD COUNT 11.9 K/mm3 (4.0-10.0)
[2020-10-20 08:35] LABS: POTASSIUM 4.6 mmol/L (3.5-5.1)
[2020-10-20 08:56] LABS: BLOOD UREA NITROGEN 45.5 mg/dL (7-18); CALCIUM 9.5 mg/dL (8.5-10.1)
[2020-10-20 09:00] LABS: CREATININE 1.8 mg/dL (0.55-1.3)
[2020-10-20 09:01] LABS: BILIRUBIN,TOTAL 0.6 mg/dL (0.2-1); TOT PROT 6.6 g/dl (6.4-8.2)
[2020-10-20] MEDS ORDERED: PT OWN MED DRAWER 7, Y5N ONE (09:34)
[2020-10-20] MEDS: oxyCODONE HCL 5 MG TABLET PO PRN ×3 (09:39→22:31)
[2020-10-20] MEDS: CLOPIDOGREL BISULFATE 75 MG TABLET (FP) PO SCH (09:39)
[2020-10-20] MEDS: amLODIPine BESYLATE 5 MG TABLET (FP) PO SCH (09:39)
[2020-10-20] MEDS: ASPIRIN 81 MG CHEWABLE TABLETS PO SCH (09:40)
[2020-10-20] MEDS: FAMOTIDINE 20 MG TABLET PO SCH (09:41)
[2020-10-20] MEDS: BUDESONIDE/FORMETEROL FUMARATE 160/4.5 mcg INHALER IH SCH ×2 (11:56→22:16)
[2020-10-20] MEDS ORDERED: ALPRAZolam 0.25 MG TABLET PO PRN (11:58)
[2020-10-20] MEDS: ROSUVASTATIN CA 10 MG TABLET (FP) PO SCH (22:16)
[2020-10-21] MEDS ORDERED: MORPHINE SULFATE 2 MG/ML VIAL IVPUSH ONE (00:45)
[2020-10-21] MEDS ORDERED: PT OWN MED DRAWER 7, Y5N ONE ×2 (06:24→09:56)
[2020-10-21] MEDS: LEVOTHYROXINE NA 88 MCG TABLET (FP) PO SCH (06:35)
[2020-10-21] MEDS: glipiZIDE-XL 5 MG TAB.ER.24 PO SCH (06:35)
[2020-10-21] MEDS: INSULIN SLIDING SCALE (NOVOLOG) 1 VIAL SQ SCH ×4 (06:36→22:22)
[2020-10-21] MEDS ORDERED: HEPARIN NA (PORCINE) 5,000 UNITS/ML 1ML VIAL IVPUSH ONE (09:30)
[2020-10-21] MEDS ORDERED: HEPARIN INFUSION - 25,000 UNITS/500 ML INFUS.BAG IVPB SCH (09:30)
[2020-10-21] MEDS: CLOPIDOGREL BISULFATE 75 MG TABLET (FP) PO SCH (10:01)
[2020-10-21] MEDS: ASPIRIN 81 MG CHEWABLE TABLETS PO SCH (10:01)
[2020-10-21] MEDS: FAMOTIDINE 20 MG TABLET PO SCH (10:01)
[2020-10-21] MEDS: amLODIPine BESYLATE 5 MG TABLET (FP) PO SCH (10:01)
[2020-10-21 10:34] LABS: BASO % 0.2 % (0-2.0); EOS % 1.2 % (0-4.5); HEMATOCRIT 37.3 % (35.4-49); HEMOGLOBIN 12.8 GM/dL (11.7-16.9); LYMPH % 7.2 % (8-40); MCH 31.5 pg (25.7-33.7); MCHC 34.3 g/dl (32.0-35.9); MEAN PLT VOLUME 8.1 fl (7.5-11.1); MONO % 6.9 % (3.8-10.2); NEUT % 84.5 % (42.8-82.8); PLATELET COUNT 432 K/MM3 (134-434); RBC 4.05 M/mm3 (4.00-5.60); WHITE BLOOD COUNT 12.1 K/mm3 (4.0-10.0)
[2020-10-21 10:40] LABS: POTASSIUM 4.5 mmol/L (3.5-5.1)
[2020-10-21 10:45] LABS: ALBUMIN 2.9 g/dl (3.4-5.0); BLOOD UREA NITROGEN 51.9 mg/dL (7-18); CALCIUM 9.3 mg/dL (8.5-10.1)
[2020-10-21 10:49] LABS: BILIRUBIN,TOTAL 0.5 mg/dL (0.2-1); TOT PROT 6.4 g/dl (6.4-8.2)
[2020-10-21] MEDS ORDERED: HEPARIN NA (PORCINE) 5,000 UNITS/ML 1ML VIAL IVPUSH STA (11:21)
[2020-10-21] MEDS ORDERED: INSULIN (NOVOLOG) ASPART 100 UNITS/ML 10ML VIAL ONE ×2 (11:29→16:30)
[2020-10-21] MEDS: BUDESONIDE/FORMETEROL FUMARATE 160/4.5 mcg INHALER IH SCH ×2 (11:40→22:23)
[2020-10-21] MEDS: SODIUM CHLORIDE 0.45%/POT 20 MEQ/1,000 ML INFUS.BAG IV SCH (19:41)
[2020-10-21] MEDS: ROSUVASTATIN CA 10 MG TABLET (FP) PO SCH (22:21)
[2020-10-22] MEDS ORDERED: PT OWN MED DRAWER 7, Y5N ONE (06:37)
[2020-10-22] MEDS: LEVOTHYROXINE NA 88 MCG TABLET (FP) PO SCH (06:46)
[2020-10-22] MEDS: INSULIN SLIDING SCALE (NOVOLOG) 1 VIAL SQ SCH ×4 (06:47→23:00)
[2020-10-22] MEDS ORDERED: PROPOFOL 20 ML ONE (09:22)
[2020-10-22] MEDS ORDERED: SUCCINYLCHOLINE CHLORIDE 200 MG/10 ML SYRINGE ONE (09:22)
[2020-10-22] MEDS ORDERED: MIDAZOLAM HCL 2 MG/2 ML SINGLE DOSE VIAL ONE (09:22)
[2020-10-22] MEDS: amLODIPine BESYLATE 5 MG TABLET (FP) PO SCH (09:45)
[2020-10-22] MEDS: FAMOTIDINE 20 MG TABLET PO SCH (09:46)
[2020-10-22] MEDS: SODIUM CHLORIDE 0.45%/POT 20 MEQ/1,000 ML INFUS.BAG IV SCH (09:46)
[2020-10-22] MEDS ORDERED: HEPARIN NA (PORCINE) 5,000 UNITS/ML 1ML VIAL ONE ×2 (09:48→11:47)
[2020-10-22] MEDS ORDERED: LIDOCAINE HCL 1%, 10 MG/ML (20ML VIAL) ONE (09:48)
[2020-10-22] MEDS ORDERED: PAPAVERINE HCL 30 MG/1 ML 10 ML VIAL NR ONE (09:49)
[2020-10-22 10:06] LABS: BASO % 0.6 % (0-2.0); EOS % 1.3 % (0-4.5); HEMATOCRIT 37.3 % (35.4-49); HEMOGLOBIN 12.8 GM/dL (11.7-16.9); LYMPH % 9.9 % (8-40); MCH 31.7 pg (25.7-33.7); MCHC 34.3 g/dl (32.0-35.9); MEAN CELL VOLUME 92.6 fl (80-96); MEAN PLT VOLUME 8.5 fl (7.5-11.1); MONO % 7.3 % (3.8-10.2); NEUT % 80.9 % (42.8-82.8); PLATELET COUNT 366 K/MM3 (134-434); RBC 4.02 M/mm3 (4.00-5.60); RDW 12.8 % (11.9-15.9); WHITE BLOOD COUNT 9.9 K/mm3 (4.0-10.0)
[2020-10-22] MEDS: CLOPIDOGREL BISULFATE 75 MG TABLET (FP) PO SCH (10:07)
[2020-10-22] MEDS: ASPIRIN 81 MG CHEWABLE TABLETS PO SCH (10:07)
[2020-10-22] MEDS ORDERED: ROCURONIUM BROMIDE 50 MG/5 ML SYRINGE ONE (10:12)
[2020-10-22] MEDS ORDERED: EPHEDRINE SULFATE/0.9% NACL/PF 50 MG/10 ML SYRINGE NR ONE (10:12)
[2020-10-22] MEDS ORDERED: ceFAZolin SODIUM 1 GM VIAL IVPB ONE (10:20)
[2020-10-22] MEDS ORDERED: ceFAZolin SODIUM 1 GM VIAL ONE ×2 (10:26→18:06)
[2020-10-22 10:48] LABS: BLOOD UREA NITROGEN 39.8 mg/dL (7-18); CALCIUM 9.6 mg/dL (8.5-10.1); CREATININE 1.8 mg/dL (0.55-1.3); POTASSIUM 4.9 mmol/L (3.5-5.1)
[2020-10-22] MEDS ORDERED: PHENYLEPHRINE HCL 10 MG/1 ML SINGLE DOSE VIAL ONE (10:55)
[2020-10-22] MEDS ORDERED: ETOMIDATE 20 MG/10 ML AMPUL IVPUSH ONE (10:55)
[2020-10-22] MEDS ORDERED: ALBUTEROL SO4 HFA INHALER IH ONE (10:55)
[2020-10-22] MEDS ORDERED: DEXAMETHASONE SOD PHOSPHATE 4 MG/1 ML VIAL ONE (10:57)
[2020-10-22] MEDS: BUDESONIDE/FORMETEROL FUMARATE 160/4.5 mcg INHALER IH SCH ×2 (11:05→23:01)
[2020-10-22] MEDS ORDERED: GLYCOPYRROLATE 0.2 MG/1 ML VIAL ONE ×2 (11:45→11:46)
[2020-10-22] MEDS ORDERED: NEOSTIGMINE METHYLSULFATE 0.5 MG/ML - 10 ML MDV ONE (11:46)
[2020-10-22] MEDS ORDERED: POVIDONE-IODINE OINTMENT 10% - 28.4 GM TUBE ONE (12:16)
[2020-10-22] MEDS ORDERED: ONDANSETRON 4 MG/2 ML VIAL IVPUSH PRN ×2 (12:26→13:25)
[2020-10-22] MEDS ORDERED: PROMETHAZINE HCL 25 MG/1 ML VIAL IVPUSH PRN ×2 (12:26→13:25)
[2020-10-22] MEDS ORDERED: SODIUM CHLORIDE 1,000 ML IV SCH (12:30)
[2020-10-22] MEDS: MIDAZOLAM HCL 2 MG/2 ML SINGLE DOSE VIAL ONE ×2 (12:55→13:05)
[2020-10-22] MEDS ORDERED: oxyCODONE HCL 5 MG TABLET PO PRN (13:25)
[2020-10-22] MEDS ORDERED: SODIUM CHLORIDE 0.45%/POT 20 MEQ/1,000 ML INFUS.BAG IV SCH (13:25)
[2020-10-22] MEDS ORDERED: HEPARIN NA (PORCINE) 5,000 UNITS/ML 1ML VIAL IVPUSH PRN ×2 (13:25)
[2020-10-22] MEDS ORDERED: ALPRAZolam 0.25 MG TABLET PO PRN (13:25)
[2020-10-22] MEDS ORDERED: ALBUTEROL SO4 HFA INHALER IH PRN (13:25)
[2020-10-22] MEDS ORDERED: LORazepam 2 MG/ML SDV VIAL IVPUSH ONE (13:44)
[2020-10-22] MEDS ORDERED: HEPARIN INFUSION - 25,000 UNITS/500 ML INFUS.BAG IVPB SCH ×2 (14:00)
[2020-10-22 14:25] LABS: BASO % 0.5 % (0-2.0); EOS % 0.7 % (0-4.5); HEMOGLOBIN 11.1 GM/dL (11.7-16.9); LYMPH % 4.9 % (8-40); MCH 30.5 pg (25.7-33.7); MCHC 32.7 g/dl (32.0-35.9); MEAN CELL VOLUME 93.5 fl (80-96); MEAN PLT VOLUME 8.8 fl (7.5-11.1); MONO % 4.1 % (3.8-10.2); NEUT % 89.8 % (42.8-82.8); PLATELET COUNT 425 K/MM3 (134-434); RBC 3.64 M/mm3 (4.00-5.60); RDW 13.2 % (11.9-15.9); WHITE BLOOD COUNT 18.1 K/mm3 (4.0-10.0)
[2020-10-22] MEDS ORDERED: MIDAZOLAM HCL 2 MG/2 ML SINGLE DOSE VIAL IVPUSH ONE (15:02)
[2020-10-22 15:27] LABS: BLOOD UREA NITROGEN 42.2 mg/dL (7-18); CALCIUM 8.5 mg/dL (8.5-10.1); CREATININE 1.9 mg/dL (0.55-1.3); POTASSIUM 5.2 mmol/L (3.5-5.1)
[2020-10-22] MEDS ORDERED: DEXMEDETOMIDINE IN 0.9 % NACL 400 MCG/100 ML VIAL IVPB SCH (17:15)
[2020-10-22 17:23] LABS: HEMATOCRIT 33.9 % (35.4-49); HEMOGLOBIN 11.1 GM/dL (11.7-16.9); MCH 30.9 pg (25.7-33.7); MCHC 32.6 g/dl (32.0-35.9); MEAN CELL VOLUME 94.7 fl (80-96); MEAN PLT VOLUME 8.7 fl (7.5-11.1); PLATELET COUNT 444 K/MM3 (134-434); RBC 3.58 M/mm3 (4.00-5.60); RDW 13.3 % (11.9-15.9); WHITE BLOOD COUNT 21.9 K/mm3 (4.0-10.0)
[2020-10-22 17:28] LABS: INR 1.16 (0.83-1.09); PROTHROMBIN TIME (PATIENT) 14.2 SEC (9.7-13.0)
[2020-10-22 17:31] LABS: ACTIVATED PTT 98.5 SECONDS (25.2-36.5)
[2020-10-22 17:55] LABS: ANISOCYTOSIS 2+; MACROCYTOSIS 2+; OVALOCYTE 1+; PLATELET ESTIMATE NORMAL
[2020-10-22] MEDS ORDERED: DEXTROSE 5%-WATER - 50 ML IVPB ONE (18:06)
[2020-10-22] MEDS: ACETAMINOPHEN 325 MG TABLET (FP) PO SCH ×2 (18:08→23:52)
[2020-10-22] MEDS: CEFAZOLIN 1 GM in DEXTROSE 5%-WATER - 50 ML IVPB SCH (18:08)
[2020-10-22] MEDS ORDERED: MUPIROCIN 2% TOPICAL OINTMENT FOR DECOLONIZATION NS SCH (22:00)
[2020-10-22] MEDS ORDERED: CHLORHEXIDINE GLUCONATE 4% CLEANSER FOR DECOLONIZATION TP SCH (22:00)
[2020-10-22 22:27] LABS: BASO % 0.1 % (0-2.0); HEMATOCRIT 28.6 % (35.4-49); HEMOGLOBIN 9.5 GM/dL (11.7-16.9); LYMPH % 2.6 % (8-40); MCH 31.1 pg (25.7-33.7); MCHC 33.1 g/dl (32.0-35.9); MEAN CELL VOLUME 93.9 fl (80-96); MEAN PLT VOLUME 8.3 fl (7.5-11.1); MONO % 5.7 % (3.8-10.2); NEUT % 91.6 % (42.8-82.8); PLATELET COUNT 312 K/MM3 (134-434); RBC 3.05 M/mm3 (4.00-5.60); RDW 12.7 % (11.9-15.9)
[2020-10-22] MEDS ORDERED: SODIUM CHLORIDE 500 ML IV STA (22:50)
[2020-10-22] MEDS: MUPIROCIN 2% TOPICAL OINTMENT FOR DECOLONIZATION NS SCH (23:00)
[2020-10-22] MEDS: CHLORHEXIDINE GLUCONATE 4% CLEANSER FOR DECOLONIZATION TP SCH (23:01)
[2020-10-22] MEDS: ROSUVASTATIN CA 10 MG TABLET (FP) PO SCH (23:01)
[2020-10-22 23:22] LABS: ANISOCYTOSIS 0; MACROCYTOSIS 0; PLATELET ESTIMATE NORMAL
[2020-10-22] MEDS: SODIUM CHLORIDE 0.45% 1,000 ML IV SCH (23:54)
[2020-10-23] MEDS ORDERED: ceFAZolin SODIUM 1 GM VIAL ONE ×3 (02:22→16:46)
[2020-10-23] MEDS ORDERED: DEXTROSE 5%-WATER - 50 ML IVPB ONE ×3 (02:22→16:46)
[2020-10-23 02:31] LABS: HEMATOCRIT 27.9 % (35.4-49); HEMOGLOBIN 9.3 GM/dL (11.7-16.9); MCH 30.9 pg (25.7-33.7); MCHC 33.3 g/dl (32.0-35.9); MEAN CELL VOLUME 92.8 fl (80-96); MEAN PLT VOLUME 8.5 fl (7.5-11.1); MONO % 7.2 % (3.8-10.2); NEUT % 89.8 % (42.8-82.8); PLATELET COUNT 350 K/MM3 (134-434); RBC 3.01 M/mm3 (4.00-5.60); WHITE BLOOD COUNT 17.8 K/mm3 (4.0-10.0)
[2020-10-23] MEDS: CEFAZOLIN 1 GM in DEXTROSE 5%-WATER - 50 ML IVPB SCH ×3 (02:32→18:35)
[2020-10-23 02:38] LABS: INR 1.14 (0.83-1.09)
[2020-10-23 02:41] LABS: ACTIVATED PTT 55.3 SECONDS (25.2-36.5)
[2020-10-23 02:54] LABS: POTASSIUM 4.8 mmol/L (3.5-5.1)
[2020-10-23 02:55] LABS: BLOOD UREA NITROGEN 45.9 mg/dL (7-18); CALCIUM 7.7 mg/dL (8.5-10.1)
[2020-10-23] MEDS: INSULIN SLIDING SCALE (NOVOLOG) 1 VIAL SQ SCH ×4 (06:28→22:48)
[2020-10-23] MEDS: ACETAMINOPHEN 325 MG TABLET (FP) PO SCH ×3 (06:42→19:15)
[2020-10-23] MEDS: LEVOTHYROXINE NA 88 MCG TABLET (FP) PO SCH (06:43)
[2020-10-23] MEDS: amLODIPine BESYLATE 5 MG TABLET (FP) PO SCH (09:47)
[2020-10-23] MEDS: MUPIROCIN 2% TOPICAL OINTMENT FOR DECOLONIZATION NS SCH ×2 (09:47→21:43)
[2020-10-23] MEDS: BUDESONIDE/FORMETEROL FUMARATE 160/4.5 mcg INHALER IH SCH ×2 (09:48→21:43)
[2020-10-23] MEDS: FAMOTIDINE 20 MG TABLET PO SCH (09:48)
[2020-10-23 10:37] LABS: BASO % 0.1 % (0-2.0); HEMATOCRIT 27.3 % (35.4-49); HEMOGLOBIN 9.1 GM/dL (11.7-16.9); LYMPH % 4.8 % (8-40); MCHC 33.3 g/dl (32.0-35.9); MEAN CELL VOLUME 93.3 fl (80-96); MEAN PLT VOLUME 8.4 fl (7.5-11.1); NEUT % 87.1 % (42.8-82.8); PLATELET COUNT 379 K/MM3 (134-434); RBC 2.93 M/mm3 (4.00-5.60); RDW 12.6 % (11.9-15.9); WHITE BLOOD COUNT 18.2 K/mm3 (4.0-10.0)
[2020-10-23 10:42] LABS: INR 1.15 (0.83-1.09); PROTHROMBIN TIME (PATIENT) 13.8 SEC (9.7-13.0)
[2020-10-23 10:45] LABS: ACTIVATED PTT 31.7 SECONDS (25.2-36.5)
[2020-10-23 10:59] LABS: POTASSIUM 5.4 mmol/L (3.5-5.1)
[2020-10-23 11:10] LABS: ALBUMIN 2.5 g/dl (3.4-5.0); BLOOD UREA NITROGEN 43.7 mg/dL (7-18); MAGNESIUM 1.7 mg/dL (1.8-2.4)
[2020-10-23 11:13] LABS: CREATININE 2.1 mg/dL (0.55-1.3)
[2020-10-23 11:14] LABS: BILIRUBIN,TOTAL 0.8 mg/dL (0.2-1)
[2020-10-23 11:15] LABS: TOT PROT 5.4 g/dl (6.4-8.2)
[2020-10-23 11:28] LABS: CALCIUM 8.2 mg/dL (8.5-10.1)
[2020-10-23 13:47] LABS: BASO % 0.1 % (0-2.0); EOS % 0.1 % (0-4.5); HEMATOCRIT 26.9 % (35.4-49); HEMOGLOBIN 9.1 GM/dL (11.7-16.9); MCHC 33.7 g/dl (32.0-35.9); MEAN CELL VOLUME 91.9 fl (80-96); MEAN PLT VOLUME 7.8 fl (7.5-11.1); MONO % 9.7 % (3.8-10.2); NEUT % 85.1 % (42.8-82.8); PLATELET COUNT 342 K/MM3 (134-434); RBC 2.93 M/mm3 (4.00-5.60); RDW 12.5 % (11.9-15.9); WHITE BLOOD COUNT 16.3 K/mm3 (4.0-10.0)
[2020-10-23] MEDS: CHLORHEXIDINE GLUCONATE 4% CLEANSER FOR DECOLONIZATION TP SCH (21:42)
[2020-10-23] MEDS: ROSUVASTATIN CA 10 MG TABLET (FP) PO SCH (21:42)
[2020-10-23] MEDS: SODIUM CHLORIDE 0.45% 1,000 ML IV SCH (23:00)
[2020-10-24] MEDS: ACETAMINOPHEN 325 MG TABLET (FP) PO SCH ×3 (00:05→13:49)
[2020-10-24] MEDS ORDERED: ceFAZolin SODIUM 1 GM VIAL ONE ×3 (01:12→17:16)
[2020-10-24] MEDS ORDERED: DEXTROSE 5%-WATER - 50 ML IVPB ONE ×3 (01:12→17:16)
[2020-10-24] MEDS: CEFAZOLIN 1 GM in DEXTROSE 5%-WATER - 50 ML IVPB SCH ×3 (01:28→17:23)
[2020-10-24] MEDS: INSULIN SLIDING SCALE (NOVOLOG) 1 VIAL SQ SCH ×4 (06:30→22:22)
[2020-10-24] MEDS: LEVOTHYROXINE NA 88 MCG TABLET (FP) PO SCH (06:30)
[2020-10-24 06:47] LABS: HEMOGLOBIN 7.9 GM/dL (11.7-16.9); MCH 31.5 pg (25.7-33.7); MCHC 34.3 g/dl (32.0-35.9); MEAN CELL VOLUME 91.7 fl (80-96); MEAN PLT VOLUME 8.1 fl (7.5-11.1); PLATELET COUNT 293 K/MM3 (134-434); RDW 12.7 % (11.9-15.9); WHITE BLOOD COUNT 13.2 K/mm3 (4.0-10.0)
[2020-10-24 07:12] LABS: POTASSIUM 4.6 mmol/L (3.5-5.1)
[2020-10-24 07:19] LABS: ALBUMIN 2.3 g/dl (3.4-5.0); CALCIUM 8.1 mg/dL (8.5-10.1)
[2020-10-24 07:20] LABS: BLOOD UREA NITROGEN 28.8 mg/dL (7-18); MAGNESIUM 1.8 mg/dL (1.8-2.4)
[2020-10-24 07:23] LABS: BILIRUBIN,TOTAL 0.3 mg/dL (0.2-1); CREATININE 1.5 mg/dL (0.55-1.3); PHOSPHOROUS 2.7 mg/dL (2.5-4.9)
[2020-10-24] MEDS: FAMOTIDINE 20 MG TABLET PO SCH (09:19)
[2020-10-24] MEDS: amLODIPine BESYLATE 5 MG TABLET (FP) PO SCH (09:20)
[2020-10-24] MEDS: MUPIROCIN 2% TOPICAL OINTMENT FOR DECOLONIZATION NS SCH ×2 (09:22→22:23)
[2020-10-24] MEDS: BUDESONIDE/FORMETEROL FUMARATE 160/4.5 mcg INHALER IH SCH ×2 (09:24→22:24)
[2020-10-24] MEDS: APIXABAN 5 MG TABLET PO SCH ×2 (09:24→22:23)
[2020-10-24] MEDS ORDERED: CLOPIDOGREL BISULFATE 75 MG TABLET (FP) PO SCH (10:00)
[2020-10-24] MEDS ORDERED: ASPIRIN 81 MG CHEWABLE TABLETS PO SCH (10:00)
[2020-10-24] MEDS ORDERED: SODIUM CHLORIDE 0.9% 500 ML INFUS.BAG IV ONE (10:08)
[2020-10-24] MEDS ORDERED: SODIUM CHLORIDE 500 ML IV ONE (11:00)
[2020-10-24 13:53] LABS: BASO % 0.1 % (0-2.0); EOS % 0.7 % (0-4.5); HEMATOCRIT 27.5 % (35.4-49); HEMOGLOBIN 9.3 GM/dL (11.7-16.9); LYMPH % 6.7 % (8-40); MCH 30.7 pg (25.7-33.7); MCHC 33.8 g/dl (32.0-35.9); MEAN CELL VOLUME 90.8 fl (80-96); MEAN PLT VOLUME 8.1 fl (7.5-11.1); MONO % 10.8 % (3.8-10.2); NEUT % 81.7 % (42.8-82.8); PLATELET COUNT 281 K/MM3 (134-434); RBC 3.02 M/mm3 (4.00-5.60); RDW 13.4 % (11.9-15.9); WHITE BLOOD COUNT 12.9 K/mm3 (4.0-10.0)
[2020-10-24] MEDS: SODIUM CHLORIDE 1,000 ML IV SCH (14:00)
[2020-10-24] MEDS: SENNOSIDES 8.6MG TABLET (FP) PO SCH (22:23)
[2020-10-24] MEDS: CHLORHEXIDINE GLUCONATE 4% CLEANSER FOR DECOLONIZATION TP SCH (22:23)
[2020-10-24] MEDS: ROSUVASTATIN CA 10 MG TABLET (FP) PO SCH (22:23)
[2020-10-25] MEDS ORDERED: DEXTROSE 5%-WATER - 50 ML IVPB ONE ×3 (01:49→18:00)
[2020-10-25] MEDS ORDERED: ceFAZolin SODIUM 1 GM VIAL ONE ×3 (01:49→18:00)
[2020-10-25] MEDS: CEFAZOLIN 1 GM in DEXTROSE 5%-WATER - 50 ML IVPB SCH ×3 (02:17→18:02)
[2020-10-25] MEDS: LEVOTHYROXINE NA 88 MCG TABLET (FP) PO SCH (06:14)
[2020-10-25] MEDS: INSULIN SLIDING SCALE (NOVOLOG) 1 VIAL SQ SCH ×4 (06:49→22:03)
[2020-10-25] MEDS: SODIUM CHLORIDE 1,000 ML IV SCH (07:00)
[2020-10-25 07:01] LABS: BASO % 0.4 % (0-2.0); EOS % 0.6 % (0-4.5); HEMATOCRIT 25.5 % (35.4-49); LYMPH % 9.4 % (8-40); MCH 31.6 pg (25.7-33.7); MCHC 35.2 g/dl (32.0-35.9); MEAN CELL VOLUME 89.8 fl (80-96); MEAN PLT VOLUME 8.1 fl (7.5-11.1); MONO % 9.9 % (3.8-10.2); NEUT % 79.7 % (42.8-82.8); PLATELET COUNT 262 K/MM3 (134-434); RBC 2.84 M/mm3 (4.00-5.60); WHITE BLOOD COUNT 11.1 K/mm3 (4.0-10.0)
[2020-10-25 07:21] LABS: POTASSIUM 4.3 mmol/L (3.5-5.1)
[2020-10-25 07:25] LABS: BLOOD UREA NITROGEN 19.2 mg/dL (7-18); CALCIUM 8.2 mg/dL (8.5-10.1)
[2020-10-25 07:29] LABS: CREATININE 1.3 mg/dL (0.55-1.3)
[2020-10-25] MEDS: MUPIROCIN 2% TOPICAL OINTMENT FOR DECOLONIZATION NS SCH ×2 (09:36→22:04)
[2020-10-25] MEDS: FAMOTIDINE 20 MG TABLET PO SCH (09:36)
[2020-10-25] MEDS: APIXABAN 5 MG TABLET PO SCH ×2 (09:36→22:03)
[2020-10-25] MEDS ORDERED: POLYETHYLENE GLYCOL 3350 119 GM BTL PO SCH (10:00)
[2020-10-25] MEDS: BUDESONIDE/FORMETEROL FUMARATE 160/4.5 mcg INHALER IH SCH ×2 (13:36→22:04)
[2020-10-25] MEDS: SENNOSIDES 8.6MG TABLET (FP) PO SCH (22:03)
[2020-10-25] MEDS: ROSUVASTATIN CA 10 MG TABLET (FP) PO SCH (22:03)
[2020-10-25] MEDS: CHLORHEXIDINE GLUCONATE 4% CLEANSER FOR DECOLONIZATION TP SCH (22:04)
[2020-10-26] MEDS ORDERED: PROMETHAZINE HCL 25 MG/1 ML VIAL IVPUSH PRN (00:09)
[2020-10-26] MEDS ORDERED: SODIUM CHLORIDE 1,000 ML IV SCH (00:09)
[2020-10-26] MEDS ORDERED: ALBUTEROL SO4 HFA INHALER IH PRN (00:09)
[2020-10-26] MEDS ORDERED: ONDANSETRON 4 MG/2 ML VIAL IVPUSH PRN (00:09)
[2020-10-26] MEDS: LEVOTHYROXINE NA 88 MCG TABLET (FP) PO SCH (06:16)
[2020-10-26] MEDS: INSULIN SLIDING SCALE (NOVOLOG) 1 VIAL SQ SCH ×4 (06:17→21:10)
[2020-10-26 08:53] LABS: HEMATOCRIT 25.9 % (35.4-49); MCH 31.4 pg (25.7-33.7); MCHC 34.6 g/dl (32.0-35.9); MEAN CELL VOLUME 90.8 fl (80-96); MEAN PLT VOLUME 8.6 fl (7.5-11.1); PLATELET COUNT 271 K/MM3 (134-434); RBC 2.85 M/mm3 (4.00-5.60); RDW 13.8 % (11.9-15.9); WHITE BLOOD COUNT 9.5 K/mm3 (4.0-10.0)
[2020-10-26 09:03] LABS: POTASSIUM 4.3 mmol/L (3.5-5.1)
[2020-10-26 09:15] LABS: ALBUMIN 2.2 g/dl (3.4-5.0); BLOOD UREA NITROGEN 15.1 mg/dL (7-18); CALCIUM 8.8 mg/dL (8.5-10.1)
[2020-10-26 09:19] LABS: CREATININE 1.1 mg/dL (0.55-1.3)
[2020-10-26 09:21] LABS: BILIRUBIN,TOTAL 0.5 mg/dL (0.2-1); TOT PROT 5.2 g/dl (6.4-8.2)
[2020-10-26] MEDS ORDERED: PT OWN MED DRAWER 7, Y5N ONE (09:31)
[2020-10-26] MEDS: APIXABAN 5 MG TABLET PO SCH ×2 (09:38→21:08)
[2020-10-26] MEDS: FAMOTIDINE 20 MG TABLET PO SCH (09:38)
[2020-10-26] MEDS: BUDESONIDE/FORMETEROL FUMARATE 160/4.5 mcg INHALER IH SCH ×2 (09:43→21:10)
[2020-10-26] MEDS ORDERED: MUPIROCIN 2% TOPICAL OINTMENT FOR DECOLONIZATION NS SCH (10:00)
[2020-10-26] MEDS: POLYETHYLENE GLYCOL 3350 119 GM BTL PO SCH (12:13)
[2020-10-26] MEDS: ROSUVASTATIN CA 10 MG TABLET (FP) PO SCH (21:07)
[2020-10-26] MEDS: SENNOSIDES 8.6MG TABLET (FP) PO SCH (21:07)
[2020-10-26] MEDS ORDERED: CHLORHEXIDINE GLUCONATE 4% CLEANSER FOR DECOLONIZATION TP SCH (22:00)
[2020-10-27] MEDS: LEVOTHYROXINE NA 88 MCG TABLET (FP) PO SCH (06:31)
[2020-10-27] MEDS: INSULIN SLIDING SCALE (NOVOLOG) 1 VIAL SQ SCH ×4 (06:31→21:36)
[2020-10-27] MEDS ORDERED: ACETAMINOPHEN 325 MG TABLET (FP) PO ONE (06:36)
[2020-10-27 08:49] LABS: HEMATOCRIT 26.1 % (35.4-49); HEMOGLOBIN 8.8 GM/dL (11.7-16.9); MCHC 33.8 g/dl (32.0-35.9); MEAN CELL VOLUME 91.8 fl (80-96); MEAN PLT VOLUME 7.9 fl (7.5-11.1); PLATELET COUNT 266 K/MM3 (134-434); RBC 2.84 M/mm3 (4.00-5.60)
[2020-10-27 09:19] LABS: POTASSIUM 4.2 mmol/L (3.5-5.1)
[2020-10-27 09:24] LABS: ALBUMIN 2.4 g/dl (3.4-5.0); BLOOD UREA NITROGEN 18.3 mg/dL (7-18); CALCIUM 8.8 mg/dL (8.5-10.1)
[2020-10-27 09:26] LABS: CREATININE 1.4 mg/dL (0.55-1.3)
[2020-10-27 09:28] LABS: BILIRUBIN,TOTAL 0.6 mg/dL (0.2-1); TOT PROT 5.5 g/dl (6.4-8.2)
[2020-10-27] MEDS: FAMOTIDINE 20 MG TABLET PO SCH (10:39)
[2020-10-27] MEDS: ASPIRIN COATED 81 MG TABLET.EC PO SCH (10:39)
[2020-10-27] MEDS: APIXABAN 5 MG TABLET PO SCH ×2 (10:39→21:34)
[2020-10-27] MEDS: amLODIPine BESYLATE 5 MG TABLET (FP) PO SCH (10:40)
[2020-10-27] MEDS: BUDESONIDE/FORMETEROL FUMARATE 160/4.5 mcg INHALER IH SCH ×2 (10:43→21:37)
[2020-10-27] MEDS: POLYETHYLENE GLYCOL 3350 119 GM BTL PO SCH (13:35)
[2020-10-27] MEDS ORDERED: INSULIN (NOVOLOG) ASPART 100 UNITS/ML 10ML VIAL ONE (17:39)
[2020-10-27] MEDS: ROSUVASTATIN CA 10 MG TABLET (FP) PO SCH (21:34)
[2020-10-27] MEDS: SENNOSIDES 8.6MG TABLET (FP) PO SCH (21:34)
[2020-10-28] MEDS: INSULIN SLIDING SCALE (NOVOLOG) 1 VIAL SQ SCH ×2 (06:17→11:43)
[2020-10-28] MEDS: LEVOTHYROXINE NA 88 MCG TABLET (FP) PO SCH (06:18)
[2020-10-28 09:26] LABS: EOS % 1.3 % (0-4.5); HEMOGLOBIN 9.4 GM/dL (11.7-16.9); MCH 31.3 pg (25.7-33.7); MCHC 33.8 g/dl (32.0-35.9); MEAN CELL VOLUME 92.8 fl (80-96); MEAN PLT VOLUME 8.1 fl (7.5-11.1); MONO % 10.8 % (3.8-10.2); NEUT % 71.9 % (42.8-82.8); PLATELET COUNT 311 K/MM3 (134-434); RBC 3.01 M/mm3 (4.00-5.60); RDW 13.8 % (11.9-15.9); WHITE BLOOD COUNT 10.6 K/mm3 (4.0-10.0)
[2020-10-28] MEDS ORDERED: PT OWN MED DRAWER 7, Y5N ONE (10:27)
[2020-10-28 10:29] LABS: POTASSIUM 4.5 mmol/L (3.5-5.1)
[2020-10-28 10:30] LABS: CALCIUM 9.3 mg/dL (8.5-10.1)
[2020-10-28] MEDS: ASPIRIN COATED 81 MG TABLET.EC PO SCH (10:30)
[2020-10-28] MEDS: APIXABAN 5 MG TABLET PO SCH (10:31)
[2020-10-28] MEDS: POLYETHYLENE GLYCOL 3350 119 GM BTL PO SCH (10:31)
[2020-10-28 10:32] LABS: BLOOD UREA NITROGEN 19.2 mg/dL (7-18)
[2020-10-28] MEDS: amLODIPine BESYLATE 5 MG TABLET (FP) PO SCH (10:32)
[2020-10-28] MEDS: FAMOTIDINE 20 MG TABLET PO SCH (10:32)
[2020-10-28] MEDS: BUDESONIDE/FORMETEROL FUMARATE 160/4.5 mcg INHALER IH SCH (10:32)
[2020-10-28 10:35] LABS: ALBUMIN 2.6 g/dl (3.4-5.0); CREATININE 1.5 mg/dL (0.55-1.3)
[2020-10-28 10:36] LABS: BILIRUBIN,TOTAL 0.8 mg/dL (0.2-1)
[2020-10-28 14:54] VITALS: BP 111/64; PULSE 96; TEMP 98.1
== END 2020-10-28 15:25 | disposition home health service (06) | DRG 270 ==
LOC: JER 17:02 → JERBED 10-20 01:27 → J6S 10-20 05:05 → JICU 10-22 12:54 → J8W 10-26 00:03
PROVIDERS: ADMIT Hospitalist; ATTEND Internal Medicine
PROC: 04CC0ZZ Extirpation of Matter from Right Common Iliac Artery, Open Approach (ICD-10-PCS; 2020-10-22)
PROC: 047 Lower Arteries, Dilation (ICD-10-PCS; 2020-10-22)
PROC: B40FYZZ Plain Radiography of Right Lower Extremity Arteries using Other Contrast (ICD-10-PCS; 2020-10-22)
PROC: 04CK0ZZ Extirpation of Matter from Right Femoral Artery, Open Approach (ICD-10-PCS; principal; 2020-10-22 09:33)
DX: I74.3 Embolism and thrombosis of arteries of the lower extremities (principal); U07.1 COVID-19; N17.9 Acute kidney failure, unspecified; I13.0 Hypertensive heart and chronic kidney disease with heart failure and stage 1 through stage 4 chronic kidney disease, or unspecified chronic kidney disease; I50.22 Chronic systolic (congestive) heart failure; R71.0 Precipitous drop in hematocrit; I74.5 Embolism and thrombosis of iliac artery; E11.51 Type 2 diabetes mellitus with diabetic peripheral angiopathy without gangrene; B94.8 Sequelae of other specified infectious and parasitic diseases; I25.10 Atherosclerotic heart disease of native coronary artery without angina pectoris; Z68.32 Body mass index [BMI] 32.0-32.9, adult; E66.01 Morbid (severe) obesity due to excess calories; E78.5 Hyperlipidemia, unspecified; F41.9 Anxiety disorder, unspecified; E11.22 Type 2 diabetes mellitus with diabetic chronic kidney disease; N18.32 Chronic kidney disease, stage 3b; E87.5 Hyperkalemia
CPT/HCPCS: 36415; 36430; 73523-TC-FY; 73552-TC-RT-FY; 74176-TC; 76000-TC-FY; 80048; 80053; 81003; 82728; 82962; 83540; 83550; 83615; 83735; 84100; 85025; 85027; 85379; 85610; 85730; 86140; 86850; 86900; 86901; 86922; 87086; 88304-TC; 93306-TC; 93926-TC; 93970-TC; 94010; 94760; 97116-GP; 97161-GP; 99285-25; C9803; J0131; J1644; J3480; P9058; U0003

== ENCOUNTER 2023-02-02 10:10 | Inpatient (IN) | payer OTHER ==
[2023-02-02] MEDS ORDERED: ACETAMINOPHEN 1000 MG/100 ML BAG IVPB ONE (10:58)
[2023-02-02] MEDS ORDERED: ACETAMINOPHEN INJECTION 100 ML IVPB ONE (11:20)
[2023-02-02 11:33] LABS: BASO % 0.7 % (0-2.0); EOS % 1.8 % (0-4.5); HEMATOCRIT 35.2 % (35.4-49); HEMOGLOBIN 11.5 GM/dL (11.7-16.9); LYMPH % 11.3 % (8-40); MCH 31.1 pg (25.7-33.7); MCHC 32.8 g/dl (32.0-35.9); MEAN CELL VOLUME 94.6 fl (80-96); MEAN PLT VOLUME 8.3 fl (7.5-11.1); MONO % 7.2 % (3.8-10.2); PLATELET COUNT 338 10^3/uL (134-434); RBC 3.72 M/mm3 (4.00-5.60); RDW 13.2 % (11.9-15.9)
[2023-02-02 11:40] LABS: PROTHROMBIN TIME (PATIENT) 11.6 SEC (9.7-13.0)
[2023-02-02 11:43] LABS: ACTIVATED PTT 31.2 SECONDS (25.2-36.5)
[2023-02-02 11:55] LABS: CHLORIDE 108 mmol/L (98-107); SODIUM 141 mmol/L (136-145)
[2023-02-02 11:59] LABS: ALBUMIN 2.8 g/dl (3.4-5.0); CO2 26 mmol/L (21-32); GLUCOSE,RANDOM 142 mg/dL (74-106)
[2023-02-02 12:02] LABS: CREATININE 1.5 mg/dL (0.55-1.3); SGOT/AST 23 U/L (15-37); SGPT/ALT 12 U/L (13-61)
[2023-02-02 12:03] LABS: TOT PROT 6.6 g/dl (6.4-8.2)
[2023-02-02 12:04] LABS: ALK PHOS 79 U/L (45-117); BILIRUBIN,TOTAL 0.4 mg/dL (0.2-1)
[2023-02-02 12:07] LABS: ANION GAP 7 MMOL/L (8-16); POTASSIUM 6.1 mmol/L (3.5-5.1)
[2023-02-02] MEDS ORDERED: SODIUM CHLORIDE 0.9% 500 ML INFUS.BAG IV ONE (12:26)
[2023-02-02] MEDS ORDERED: VANCOMYCIN HCL 1,500 MG in DEXTROSE 5%-WATER - 500 ML IVPB ONE (14:38)
[2023-02-02] MEDS ORDERED: VANCOMYCIN PREMIX 1.5 GM 1,500 MG/300 ML BAG IVPB ONE (14:44)
[2023-02-02] MEDS ORDERED: ACETAMINOPHEN 325 MG TABLET (FP) PO PRN (16:54)
[2023-02-02] MEDS: LACTATED RINGERS SOLUTION 1,000 ML IV SCH (19:06)
[2023-02-02] MEDS: INSULIN SLIDING SCALE (NOVOLOG) 1 VIAL SQ SCH (19:06)
[2023-02-02 20:42] VITALS: BMI 40.8
[2023-02-02] MEDS ORDERED: VANCOMYCIN 1 GM in D5W (PRE-DOCKED) 1,000 MG/250 ML (RESTRICTED TO ID ONLY IVPB SCH (22:00)
[2023-02-02] MEDS: HEPARIN NA (PORCINE) 5,000 UNITS/ML 1ML VIAL SQ SCH (22:24)
[2023-02-02] MEDS: ROSUVASTATIN CA 20 MG TABLET PO SCH (22:24)
[2023-02-03] MEDS: BUDESONIDE/FORMETEROL FUMARATE 160/4.5 mcg INHALER IH SCH ×3 (00:05→21:33)
[2023-02-03] MEDS: VANCOMYCIN 1 GM/200 ML PREMIX BAG (RESTRICTED TO ID ONLY) IVPB SCH ×2 (03:40→16:43)
[2023-02-03] MEDS: HEPARIN NA (PORCINE) 5,000 UNITS/ML 1ML VIAL SQ SCH ×3 (05:27→21:32)
[2023-02-03] MEDS: LEVOTHYROXINE NA 88 MCG TABLET (FP) PO SCH (06:18)
[2023-02-03] MEDS: INSULIN SLIDING SCALE (NOVOLOG) 1 VIAL SQ SCH ×3 (07:01→16:43)
[2023-02-03] MEDS: amLODIPine BESYLATE 5 MG TABLET (FP) PO SCH (09:26)
[2023-02-03 10:38] LABS: INR 1.1 (0.83-1.09); PROTHROMBIN TIME (PATIENT) 12.7 SEC (9.7-13.0)
[2023-02-03 10:41] LABS: ACTIVATED PTT 32.6 SECONDS (25.2-36.5)
[2023-02-03 10:45] LABS: BASO % 0.7 % (0-2.0); EOS % 2.2 % (0-4.5); HEMATOCRIT 36.4 % (35.4-49); LYMPH % 10.7 % (8-40); MCH 31.4 pg (25.7-33.7); MEAN PLT VOLUME 8.2 fl (7.5-11.1); MONO % 7.1 % (3.8-10.2); NEUT % 79.3 % (42.8-82.8); PLATELET COUNT 369 10^3/uL (134-434); RBC 3.83 M/mm3 (4.00-5.60); RDW 13.4 % (11.9-15.9); WHITE BLOOD COUNT 9.9 K/mm3 (4.0-10.0)
[2023-02-03 11:20] LABS: POTASSIUM 4.9 mmol/L (3.5-5.1)
[2023-02-03 11:22] LABS: ALBUMIN 2.7 g/dl (3.4-5.0); CALCIUM 9.1 mg/dL (8.5-10.1)
[2023-02-03 11:25] LABS: CREATININE 1.4 mg/dL (0.55-1.3); PHOSPHOROUS 4.1 mg/dL (2.5-4.9)
[2023-02-03 11:26] LABS: MAGNESIUM 1.6 mg/dL (1.8-2.4)
[2023-02-03 11:27] LABS: BILIRUBIN,TOTAL 0.4 mg/dL (0.2-1); BLOOD UREA NITROGEN 18.6 mg/dL (7-18); TOT PROT 6.2 g/dl (6.4-8.2)
[2023-02-03] MEDS ORDERED: MAGNESIUM SULF 50% (8.12 MEQ/2 ML-1 GM VIAL) IVPB ONE (11:43)
[2023-02-03] MEDS ORDERED: AMPICILLIN NA/SULBACTAM NA 3 GM in SODIUM CHLORIDE 100 ML IVPB SCH ×2 (13:00→13:02)
[2023-02-03] MEDS: LACTATED RINGERS SOLUTION 1,000 ML IV SCH (16:45)
[2023-02-03] MEDS: PIPERACILLIN/TAZOB 3.375 GM 3.375 GM in DEXTROSE 5%-WATER - 50 ML IVPB SCH (18:38)
[2023-02-03] MEDS: ROSUVASTATIN CA 20 MG TABLET PO SCH (21:32)
[2023-02-04] MEDS: PIPERACILLIN/TAZOB 3.375 GM 3.375 GM in DEXTROSE 5%-WATER - 50 ML IVPB SCH ×3 (01:57→18:40)
[2023-02-04] MEDS ORDERED: VANCOMYCIN/WATER FOR INJ (PEG) 1,000 MG/200 ML BAG IVPB SCH ×2 (04:00→16:00)
[2023-02-04] MEDS: INSULIN SLIDING SCALE (NOVOLOG) 1 VIAL SQ SCH ×3 (06:41→17:22)
[2023-02-04] MEDS: LEVOTHYROXINE NA 88 MCG TABLET (FP) PO SCH (06:43)
[2023-02-04 09:48] LABS: INR 1.1 (0.83-1.09); PROTHROMBIN TIME (PATIENT) 12.8 SEC (9.7-13.0)
[2023-02-04 09:53] LABS: HEMATOCRIT 37.4 % (35.4-49); HEMOGLOBIN 12.4 GM/dL (11.7-16.9); MCH 31.3 pg (25.7-33.7); MEAN CELL VOLUME 94.9 fl (80-96); MEAN PLT VOLUME 8.2 fl (7.5-11.1); PLATELET COUNT 404 10^3/uL (134-434); RBC 3.94 M/mm3 (4.00-5.60); RDW 13.1 % (11.9-15.9); WHITE BLOOD COUNT 9.8 K/mm3 (4.0-10.0)
[2023-02-04 10:00] LABS: POTASSIUM 4.6 mmol/L (3.5-5.1)
[2023-02-04 10:02] LABS: CALCIUM 9.4 mg/dL (8.5-10.1)
[2023-02-04 10:03] LABS: BLOOD UREA NITROGEN 23.4 mg/dL (7-18)
[2023-02-04 10:06] LABS: CREATININE 1.7 mg/dL (0.55-1.3)
[2023-02-04] MEDS: amLODIPine BESYLATE 5 MG TABLET (FP) PO SCH (10:19)
[2023-02-04] MEDS: BUDESONIDE/FORMETEROL FUMARATE 160/4.5 mcg INHALER IH SCH ×2 (10:26→21:52)
[2023-02-04] MEDS ORDERED: ONDANSETRON 4 MG/2 ML VIAL IVPUSH PRN ×3 (13:09→15:27)
[2023-02-04] MEDS ORDERED: MIDAZOLAM HCL 2 MG/2 ML SINGLE DOSE VIAL ONE (13:29)
[2023-02-04] MEDS ORDERED: LIDOCAINE HCL/PF 2% SDV 5ML VIAL ONE (13:29)
[2023-02-04] MEDS ORDERED: PROPOFOL 20 ML ONE (13:29)
[2023-02-04] MEDS ORDERED: SODIUM CHLORIDE 1,000 ML IV SCH (14:00)
[2023-02-04] MEDS ORDERED: BUPIVACAINE HCL/PF 0.5% (5MG/ML) 10 ML VIAL ONE (15:03)
[2023-02-04] MEDS ORDERED: LIDOCAINE HCL 1%, 10 MG/ML (10ML VIAL) MDV ONE (15:03)
[2023-02-04] MEDS ORDERED: LIDOCAINE 1% P/F 10 MG/ML VIAL INF ONE (15:08)
[2023-02-04] MEDS ORDERED: BUPIVACAINE HCL/PF 0.5% (5 MG/ML) 30 ML VIAL IJ ONE (15:08)
[2023-02-04] MEDS ORDERED: ACETAMINOPHEN 325 MG TABLET (FP) PO PRN (15:27)
[2023-02-04] MEDS: SODIUM CHLORIDE 1,000 ML IV SCH (16:15)
[2023-02-04] MEDS: ROSUVASTATIN CA 20 MG TABLET PO SCH (21:48)
[2023-02-05] MEDS: SODIUM CHLORIDE 1,000 ML IV SCH ×3 (00:15→15:30)
[2023-02-05] MEDS: PIPERACILLIN/TAZOB 3.375 GM 3.375 GM in DEXTROSE 5%-WATER - 50 ML IVPB SCH ×3 (01:26→17:20)
[2023-02-05] MEDS: INSULIN SLIDING SCALE (NOVOLOG) 1 VIAL SQ SCH ×3 (06:20→17:11)
[2023-02-05] MEDS: LEVOTHYROXINE NA 88 MCG TABLET (FP) PO SCH (06:20)
[2023-02-05] MEDS: amLODIPine BESYLATE 5 MG TABLET (FP) PO SCH (10:28)
[2023-02-05] MEDS: BUDESONIDE/FORMETEROL FUMARATE 160/4.5 mcg INHALER IH SCH ×2 (10:29→21:34)
[2023-02-05 11:12] LABS: EOS % 1.9 % (0-4.5); HEMATOCRIT 35.8 % (35.4-49); HEMOGLOBIN 11.6 GM/dL (11.7-16.9); LYMPH % 11.4 % (8-40); MCHC 32.5 g/dl (32.0-35.9); MEAN CELL VOLUME 95.5 fl (80-96); MEAN PLT VOLUME 8.2 fl (7.5-11.1); MONO % 5.1 % (3.8-10.2); NEUT % 80.6 % (42.8-82.8); PLATELET COUNT 428 10^3/uL (134-434); RBC 3.75 M/mm3 (4.00-5.60); RDW 13.3 % (11.9-15.9); WHITE BLOOD COUNT 10.6 K/mm3 (4.0-10.0)
[2023-02-05 11:37] LABS: POTASSIUM 4.4 mmol/L (3.5-5.1)
[2023-02-05 11:39] LABS: CALCIUM 9.1 mg/dL (8.5-10.1)
[2023-02-05 11:40] LABS: ALBUMIN 2.8 g/dl (3.4-5.0); BLOOD UREA NITROGEN 18.6 mg/dL (7-18)
[2023-02-05 11:43] LABS: CREATININE 1.6 mg/dL (0.55-1.3)
[2023-02-05 11:45] LABS: BILIRUBIN,TOTAL 0.2 mg/dL (0.2-1); TOT PROT 6.6 g/dl (6.4-8.2)
[2023-02-05] MEDS: ENOXAPARIN NA (PORCINE) 40 MG/0.4 ML DISP.SYRIN SQ SCH (17:18)
[2023-02-05] MEDS ORDERED: VANCOMYCIN/WATER FOR INJ (PEG) 1,000 MG/200 ML BAG IVPB SCH (18:00)
[2023-02-05] MEDS: ROSUVASTATIN CA 20 MG TABLET PO SCH (21:29)
[2023-02-06] MEDS: PIPERACILLIN/TAZOB 3.375 GM 3.375 GM in DEXTROSE 5%-WATER - 50 ML IVPB SCH ×3 (01:42→13:45)
[2023-02-06] MEDS: SODIUM CHLORIDE 1,000 ML IV SCH ×2 (05:58→16:25)
[2023-02-06] MEDS: LEVOTHYROXINE NA 88 MCG TABLET (FP) PO SCH (06:02)
[2023-02-06] MEDS: INSULIN SLIDING SCALE (NOVOLOG) 1 VIAL SQ SCH ×3 (06:02→17:12)
[2023-02-06 09:01] LABS: BASO % 0.7 % (0-2.0); HEMOGLOBIN 12.1 GM/dL (11.7-16.9); LYMPH % 21.8 % (8-40); MCH 31.7 pg (25.7-33.7); MCHC 33.5 g/dl (32.0-35.9); MEAN CELL VOLUME 94.7 fl (80-96); MEAN PLT VOLUME 8.2 fl (7.5-11.1); MONO % 6.2 % (3.8-10.2); NEUT % 67.3 % (42.8-82.8); PLATELET COUNT 424 10^3/uL (134-434); RDW 13.2 % (11.9-15.9); WHITE BLOOD COUNT 9.2 K/mm3 (4.0-10.0)
[2023-02-06 09:17] LABS: POTASSIUM 4.9 mmol/L (3.5-5.1)
[2023-02-06 09:28] LABS: ALBUMIN 3.1 g/dl (3.4-5.0); BLOOD UREA NITROGEN 20.5 mg/dL (7-18); CALCIUM 9.4 mg/dL (8.5-10.1)
[2023-02-06 09:31] LABS: CREATININE 1.6 mg/dL (0.55-1.3)
[2023-02-06 09:32] LABS: TOT PROT 6.8 g/dl (6.4-8.2)
[2023-02-06 09:33] LABS: BILIRUBIN,TOTAL 0.2 mg/dL (0.2-1)
[2023-02-06] MEDS: amLODIPine BESYLATE 5 MG TABLET (FP) PO SCH (09:35)
[2023-02-06] MEDS: ENOXAPARIN NA (PORCINE) 40 MG/0.4 ML DISP.SYRIN SQ SCH (09:35)
[2023-02-06] MEDS: BUDESONIDE/FORMETEROL FUMARATE 160/4.5 mcg INHALER IH SCH ×2 (09:57→22:16)
[2023-02-06] MEDS: DAPTOMYCIN 800 MG in SODIUM CHLORIDE 100 ML IVPB SCH (16:25)
[2023-02-06] MEDS: ROSUVASTATIN CA 20 MG TABLET PO SCH (22:16)
[2023-02-07] MEDS: INSULIN SLIDING SCALE (NOVOLOG) 1 VIAL SQ SCH ×3 (06:15→18:03)
[2023-02-07] MEDS: LEVOTHYROXINE NA 88 MCG TABLET (FP) PO SCH (06:15)
[2023-02-07 08:24] LABS: EOS % 3.9 % (0-4.5); HEMOGLOBIN 11.3 GM/dL (11.7-16.9); LYMPH % 17.7 % (8-40); MCH 30.8 pg (25.7-33.7); MCHC 33.3 g/dl (32.0-35.9); MEAN CELL VOLUME 92.5 fl (80-96); MEAN PLT VOLUME 7.4 fl (7.5-11.1); MONO % 6.8 % (3.8-10.2); NEUT % 70.6 % (42.8-82.8); PLATELET COUNT 371 10^3/uL (134-434); RBC 3.68 M/mm3 (4.00-5.60); RDW 13.2 % (11.9-15.9)
[2023-02-07 09:11] LABS: ALBUMIN 2.8 g/dl (3.4-5.0); ALK PHOS 60 U/L (45-117); ANION GAP 8 MMOL/L (8-16); BILIRUBIN,TOTAL < 0.1 mg/dL (0.2-1); BLOOD UREA NITROGEN 20.5 mg/dL (7-18); CALCIUM 8.7 mg/dL (8.5-10.1); CHLORIDE 112 mmol/L (98-107); CO2 23 mmol/L (21-32); CREATININE 1.5 mg/dL (0.55-1.3); GLUCOSE,RANDOM 143 mg/dL (74-106); POTASSIUM 4.6 mmol/L (3.5-5.1); SGOT/AST 8 U/L (15-37); SGPT/ALT 13 U/L (13-61); SODIUM 142 mmol/L (136-145); TOT PROT 6.1 g/dl (6.4-8.2)
[2023-02-07] MEDS: ENOXAPARIN NA (PORCINE) 40 MG/0.4 ML DISP.SYRIN SQ SCH (10:04)
[2023-02-07] MEDS: BUDESONIDE/FORMETEROL FUMARATE 160/4.5 mcg INHALER IH SCH ×2 (10:04→21:44)
[2023-02-07] MEDS: amLODIPine BESYLATE 5 MG TABLET (FP) PO SCH (10:04)
[2023-02-07] MEDS: SODIUM CHLORIDE 1,000 ML IV SCH ×2 (12:18→18:03)
[2023-02-07] MEDS: DAPTOMYCIN 800 MG in SODIUM CHLORIDE 100 ML IVPB SCH (16:03)
[2023-02-08] MEDS: INSULIN SLIDING SCALE (NOVOLOG) 1 VIAL SQ SCH ×3 (06:58→17:36)
[2023-02-08] MEDS: LEVOTHYROXINE NA 88 MCG TABLET (FP) PO SCH (06:58)
[2023-02-08 09:40] LABS: BASO % 0.6 % (0-2.0); EOS % 3.2 % (0-4.5); HEMATOCRIT 36.3 % (35.4-49); LYMPH % 17.2 % (8-40); MCH 30.6 pg (25.7-33.7); MCHC 33.2 g/dl (32.0-35.9); MEAN CELL VOLUME 92.1 fl (80-96); MEAN PLT VOLUME 7.5 fl (7.5-11.1); MONO % 6.2 % (3.8-10.2); NEUT % 72.8 % (42.8-82.8); PLATELET COUNT 432 10^3/uL (134-434); RBC 3.94 M/mm3 (4.00-5.60); RDW 13.4 % (11.9-15.9); WHITE BLOOD COUNT 8.1 K/mm3 (4.0-10.0)
[2023-02-08 10:00] LABS: POTASSIUM 5.1 mmol/L (3.5-5.1)
[2023-02-08 10:07] LABS: ALBUMIN 3.1 g/dl (3.4-5.0); BLOOD UREA NITROGEN 21.3 mg/dL (7-18); CALCIUM 9.6 mg/dL (8.5-10.1)
[2023-02-08 10:10] LABS: CREATININE 1.4 mg/dL (0.55-1.3)
[2023-02-08 10:11] LABS: TOT PROT 6.7 g/dl (6.4-8.2)
[2023-02-08 10:13] LABS: BILIRUBIN,TOTAL 0.8 mg/dL (0.2-1)
[2023-02-08] MEDS ORDERED: INSULIN SLIDING SCALE (NOVOLOG) 1 VIAL SQ ONE (10:55)
[2023-02-08] MEDS: amLODIPine BESYLATE 5 MG TABLET (FP) PO SCH (10:58)
[2023-02-08] MEDS: ENOXAPARIN NA (PORCINE) 40 MG/0.4 ML DISP.SYRIN SQ SCH (10:58)
[2023-02-08] MEDS: BUDESONIDE/FORMETEROL FUMARATE 160/4.5 mcg INHALER IH SCH ×2 (11:00→21:04)
[2023-02-08] MEDS: DAPTOMYCIN 800 MG in SODIUM CHLORIDE 100 ML IVPB SCH (14:59)
[2023-02-08 18:44] VITALS: RESP 18
[2023-02-08] MEDS: SODIUM CHLORIDE 1,000 ML IV SCH (20:59)
[2023-02-09] MEDS: INSULIN SLIDING SCALE (NOVOLOG) 1 VIAL SQ SCH (06:14)
[2023-02-09] MEDS: LEVOTHYROXINE NA 88 MCG TABLET (FP) PO SCH (06:20)
[2023-02-09] MEDS: SODIUM CHLORIDE 1,000 ML IV SCH ×2 (06:21→09:19)
[2023-02-09 06:43] VITALS: BP 124/71; PULSE 65; TEMP 98.3
[2023-02-09] MEDS: amLODIPine BESYLATE 5 MG TABLET (FP) PO SCH (09:17)
[2023-02-09] MEDS: ENOXAPARIN NA (PORCINE) 40 MG/0.4 ML DISP.SYRIN SQ SCH (09:17)
[2023-02-09 09:52] LABS: BASO % 0.9 % (0-2.0); EOS % 2.5 % (0-4.5); HEMATOCRIT 35.2 % (35.4-49); HEMOGLOBIN 11.5 GM/dL (11.7-16.9); MCH 30.8 pg (25.7-33.7); MCHC 32.7 g/dl (32.0-35.9); MEAN CELL VOLUME 94.3 fl (80-96); MONO % 6.5 % (3.8-10.2); NEUT % 71.1 % (42.8-82.8); PLATELET COUNT 396 10^3/uL (134-434); RBC 3.73 M/mm3 (4.00-5.60); RDW 13.3 % (11.9-15.9); WHITE BLOOD COUNT 8.2 K/mm3 (4.0-10.0)
[2023-02-09 10:03] LABS: POTASSIUM 4.7 mmol/L (3.5-5.1)
[2023-02-09 10:13] LABS: ALBUMIN 3.1 g/dl (3.4-5.0); BLOOD UREA NITROGEN 21.8 mg/dL (7-18); CALCIUM 9.2 mg/dL (8.5-10.1)
[2023-02-09 10:16] LABS: CREATININE 1.4 mg/dL (0.55-1.3)
[2023-02-09 10:17] LABS: BILIRUBIN,TOTAL 0.3 mg/dL (0.2-1); TOT PROT 6.5 g/dl (6.4-8.2)
== END 2023-02-09 10:23 | disposition home or self-care (01) | DRG 988 ==
LOC: JER 10:10 → JERBED 15:56 → J5S 19:58
PROVIDERS: ADMIT Internal Medicine; ATTEND Internal Medicine
PROC: 0Y950ZX Drainage of Right Inguinal Region, Open Approach, Diagnostic (ICD-10-PCS; principal; 2023-02-04 13:00)
PROC: 02HV33Z Insertion of Infusion Device into Superior Vena Cava, Percutaneous Approach (ICD-10-PCS; 2023-02-07)
PROC: B548ZZA Ultrasonography of Superior Vena Cava, Guidance (ICD-10-PCS; 2023-02-07)
DX: L02.214 Cutaneous abscess of groin (principal); I13.0 Hypertensive heart and chronic kidney disease with heart failure and stage 1 through stage 4 chronic kidney disease, or unspecified chronic kidney disease; N17.9 Acute kidney failure, unspecified; I50.22 Chronic systolic (congestive) heart failure; I25.10 Atherosclerotic heart disease of native coronary artery without angina pectoris; E78.5 Hyperlipidemia, unspecified; E11.42 Type 2 diabetes mellitus with diabetic polyneuropathy; E11.51 Type 2 diabetes mellitus with diabetic peripheral angiopathy without gangrene; Z79.84 Long term (current) use of oral hypoglycemic drugs; E87.5 Hyperkalemia; Z86.16 Personal history of COVID-19; E11.22 Type 2 diabetes mellitus with diabetic chronic kidney disease; N18.9 Chronic kidney disease, unspecified
CPT/HCPCS: 36415; 36569; 75635-TC; 80048; 80053; 82550; 82962; 83735; 84100; 84132; 85025; 85027; 85610; 85730; 86850; 86900; 86901; 87040; 87070; 87186; 87205; 93926-TC; 94760; 97116-GP; 97161-GP; 99285-25; G0480; J0878; J1644; Q9967

== ENCOUNTER 2023-02-09 10:44 | Day surgery (SDC) | payer OTHER ==
[2023-02-09] MEDS ORDERED: DAPTOMYCIN 800 MG in SODIUM CHLORIDE 100 ML IVPB ONE (12:45)
[2023-02-09 12:49] VITALS: BP 124/71; RESP 18; TEMP 98.1
[2023-02-09 13:07] VITALS: PULSE 68
== END 2023-02-09 13:20 | disposition home or self-care (01) ==
LOC: FINFUSION 10:44 → FM/S 10:47 → FINFUSION 13:20
PROVIDERS: ATTEND Internal Medicine
DX: L02.214 Cutaneous abscess of groin (principal); B95.62 Methicillin resistant Staphylococcus aureus infection as the cause of diseases classified elsewhere
CPT/HCPCS: 96365; 96366; 96367; J0878

== ENCOUNTER 2023-02-10 11:00 | Day surgery (SDC) | payer OTHER ==
[2023-02-10 11:13] VITALS: PULSE 81; TEMP 97.7
[2023-02-10] MEDS ORDERED: DAPTOMYCIN 800 MG in SODIUM CHLORIDE 100 ML IVPB ONE (12:00)
[2023-02-10 13:09] VITALS: BP 121/61; RESP 18
[2023-02-10 15:11] LABS: ALBUMIN 3.7 g/dl (3.4-5.0); BILIRUBIN,TOTAL 0.3 mg/dl (0.2-1); CALCIUM 9.2 mg/dl (8.5-10.1); CREATININE 1.5 mg/dl (0.6-1.3); POTASSIUM 5.3 mmol/L (3.5-5.1); SGOT/AST 11.5 U/L (15-37); TOT PROT 6.1 g/dl (6.4-8.2)
[2023-02-10 15:36] LABS: BASO % 0.5 % (0-2.0); EOS % 2.9 % (0-4.5); HEMATOCRIT 35.1 % (35.4-49); HEMOGLOBIN 11.6 GM/dL (11.7-16.9); LYMPH % 18.5 % (8-40); MCH 30.9 pg (25.7-33.7); MCHC 33.2 g/dl (32.0-35.9); MEAN CELL VOLUME 93.1 fl (80-96); MEAN PLT VOLUME 7.9 fl (7.5-11.1); MONO % 5.1 % (3.8-10.2); PLATELET COUNT 411 10^3/uL (134-434); RBC 3.77 M/mm3 (4.00-5.60); RDW 13.4 % (11.9-15.9); WHITE BLOOD COUNT 9.8 K/mm3 (4.0-10.0)
== END 2023-02-10 13:02 | disposition home or self-care (01) ==
LOC: FM/S 11:00 → FINFUSION 11:00
PROVIDERS: ATTEND Internal Medicine
DX: L02.214 Cutaneous abscess of groin (principal); B95.62 Methicillin resistant Staphylococcus aureus infection as the cause of diseases classified elsewhere
CPT/HCPCS: 36415; 80053; 82550; 85025; 96365; J0878

== ENCOUNTER 2023-02-11 10:56 | Day surgery (SDC) | payer OTHER ==
[2023-02-11] MEDS ORDERED: DAPTOMYCIN 800 MG in SODIUM CHLORIDE 100 ML IVPB ONE (11:30)
[2023-02-11 12:22] VITALS: BP 116/63; PULSE 72; RESP 19; TEMP 98.3
== END 2023-02-11 12:24 | disposition home or self-care (01) ==
LOC: FINFUSION 10:56 → FM/S 10:59 → FINFUSION 12:24
PROVIDERS: ATTEND Internal Medicine
DX: L02.214 Cutaneous abscess of groin (principal); B95.62 Methicillin resistant Staphylococcus aureus infection as the cause of diseases classified elsewhere
CPT/HCPCS: 96365; 96367; J0878

== ENCOUNTER 2023-02-12 11:15 | Day surgery (SDC) | payer OTHER ==
[2023-02-12] MEDS ORDERED: DAPTOMYCIN 800 MG in SODIUM CHLORIDE 100 ML IVPB ONE (12:00)
[2023-02-12 12:42] VITALS: BP 131/66; PULSE 77; RESP 19; TEMP 98.6
== END 2023-02-12 12:42 | disposition home or self-care (01) ==
LOC: FINFUSION 11:15 → FM/S 11:16 → FINFUSION 12:42
PROVIDERS: ATTEND Internal Medicine
DX: L02.214 Cutaneous abscess of groin (principal); B95.62 Methicillin resistant Staphylococcus aureus infection as the cause of diseases classified elsewhere
CPT/HCPCS: 96365; J0878

== ENCOUNTER 2023-02-13 10:06 | Day surgery (SDC) | payer OTHER ==
[2023-02-13] MEDS ORDERED: DAPTOMYCIN 800 MG in SODIUM CHLORIDE 100 ML IVPB ONE (10:45)
[2023-02-13 12:04] VITALS: BP 132/60; PULSE 66; RESP 18; TEMP 98
== END 2023-02-13 12:25 | disposition home or self-care (01) ==
LOC: FINFUSION 10:06 → FM/S 10:06 → FINFUSION 12:25
PROVIDERS: ATTEND Internal Medicine
DX: L02.214 Cutaneous abscess of groin (principal); B95.62 Methicillin resistant Staphylococcus aureus infection as the cause of diseases classified elsewhere
CPT/HCPCS: 96365; J0878

== ENCOUNTER 2023-02-14 10:39 | Day surgery (SDC) | payer OTHER ==
[2023-02-14] MEDS ORDERED: DAPTOMYCIN 800 MG in SODIUM CHLORIDE 100 ML IVPB ONE (11:00)
[2023-02-14 11:24] LABS: BILIRUBIN,TOTAL 0.3 mg/dl (0.2-1); BLOOD UREA NITROGEN 25.3 mg/dl (7-18); CALCIUM 9.3 mg/dl (8.5-10.1); CREATININE 1.6 mg/dl (0.6-1.3); HEMATOCRIT 47.6 % (35.4-49); HEMOGLOBIN 15.7 G/dL (11.7-16.9); MCH 31.6 pg (25.7-33.7); MEAN CELL VOLUME 95.8 fl (80-96); MEAN PLT VOLUME 8.2 fl (7.5-11.1); PLATELET COUNT 250.8 10^3/uL (134-434); RBC 4.97 10^6/uL (4.00-5.60); RDW 14.1 % (11.9-15.9); SGOT/AST 10.9 U/L (15-37); SGPT/ALT 8.4 U/L (7-52); TOT PROT 6.6 g/dl (6.4-8.2); WHITE BLOOD COUNT 7.2 10^3/uL (4.0-10.8)
[2023-02-14 12:01] VITALS: BP 122/65; PULSE 70; RESP 20; TEMP 98.1
== END 2023-02-14 12:02 | disposition home or self-care (01) ==
LOC: FINFUSION 10:39 → FM/S 10:41 → FINFUSION 12:02
PROVIDERS: ATTEND Internal Medicine
DX: L02.214 Cutaneous abscess of groin (principal); B95.62 Methicillin resistant Staphylococcus aureus infection as the cause of diseases classified elsewhere
CPT/HCPCS: 36415; 80053; 82550; 85027; 96365; J0878

== ENCOUNTER 2023-02-15 10:25 | Day surgery (SDC) | payer OTHER ==
[~2023-02-15 10:25] MED LIST: DAPTOMYCIN 800 MG in SODIUM CHLORIDE 100 ML IVPB ONE
[2023-02-15 11:38] VITALS: BP 132/63; PULSE 77; RESP 19; TEMP 98
== END 2023-02-15 11:38 | disposition home or self-care (01) ==
LOC: FINFUSION 10:25 → FM/S 10:26 → FINFUSION 11:38
PROVIDERS: ATTEND Internal Medicine
DX: L02.214 Cutaneous abscess of groin (principal); B95.62 Methicillin resistant Staphylococcus aureus infection as the cause of diseases classified elsewhere
CPT/HCPCS: 96365; J0878

== ENCOUNTER 2023-02-17 10:36 | Day surgery (SDC) | payer OTHER ==
[2023-02-17] MEDS ORDERED: SODIUM CHLORIDE IVPB ONE (11:00)
[2023-02-17] MEDS ORDERED: DAPTOMYCIN IVPB ONE (11:00)
[2023-02-17 11:03] VITALS: RESP 18; TEMP 98.1
[2023-02-17 11:49] LABS: HEMATOCRIT 35.6 % (35.4-49); HEMOGLOBIN 11.5 G/dL (11.7-16.9); MCH 31.3 pg (25.7-33.7); MCHC 32.3 g/dl (32.0-35.9); MEAN CELL VOLUME 96.7 fl (80-96); MEAN PLT VOLUME 8.4 fl (7.5-11.1); PLATELET COUNT 332.4 10^3/uL (134-434); RBC 3.68 10^6/uL (4.00-5.60); RDW 13.8 % (11.9-15.9); WHITE BLOOD COUNT 10.1 10^3/uL (4.0-10.8)
[2023-02-17 11:59] LABS: ALBUMIN 3.9 g/dl (3.4-5.0); BILIRUBIN,TOTAL 0.3 mg/dl (0.2-1); BLOOD UREA NITROGEN 28.1 mg/dl (7-18); CALCIUM 9.4 mg/dl (8.5-10.1); CREATININE 1.8 mg/dl (0.6-1.3); POTASSIUM 5.3 mmol/L (3.5-5.1); SGOT/AST 10.6 U/L (15-37); TOT PROT 6.5 g/dl (6.4-8.2)
[2023-02-17 12:22] VITALS: BP 122/63; PULSE 86
== END 2023-02-17 12:20 | disposition home or self-care (01) ==
LOC: FINFUSION 10:36 → FM/S 10:38 → FINFUSION 12:20
PROVIDERS: ATTEND Internal Medicine
DX: L02.214 Cutaneous abscess of groin (principal); B95.62 Methicillin resistant Staphylococcus aureus infection as the cause of diseases classified elsewhere
CPT/HCPCS: 36415; 80053; 82550; 85027; 96365; J0878

== ENCOUNTER 2023-02-18 10:50 | Day surgery (SDC) | payer OTHER ==
[2023-02-18] MEDS ORDERED: DAPTOMYCIN 800 MG in SODIUM CHLORIDE 50 ML IVPB ONE (11:00)
[2023-02-18 11:08] VITALS: TEMP 98.2
[2023-02-18 11:50] VITALS: BP 126/62; PULSE 78; RESP 17
== END 2023-02-18 11:50 | disposition home or self-care (01) ==
LOC: FINFUSION 10:50 → FM/S 10:58 → FINFUSION 11:50
PROVIDERS: ATTEND Internal Medicine
DX: L02.214 Cutaneous abscess of groin (principal); B95.62 Methicillin resistant Staphylococcus aureus infection as the cause of diseases classified elsewhere
CPT/HCPCS: 96365; J0878

== ENCOUNTER 2023-02-19 10:40 | Day surgery (SDC) | payer OTHER ==
[2023-02-19 10:56] VITALS: RESP 18; TEMP 98.4
[2023-02-19] MEDS ORDERED: DAPTOMYCIN 800 MG in SODIUM CHLORIDE 50 ML IVPB ONE (11:00)
[2023-02-19 11:47] VITALS: BP 122/63; PULSE 86
== END 2023-02-19 11:48 | disposition home or self-care (01) ==
LOC: FINFUSION 10:40 → FM/S 10:41 → FINFUSION 11:48
PROVIDERS: ATTEND Internal Medicine
DX: L02.214 Cutaneous abscess of groin (principal); B95.62 Methicillin resistant Staphylococcus aureus infection as the cause of diseases classified elsewhere
CPT/HCPCS: 96365; J0878

== ENCOUNTER 2023-02-20 10:40 | Day surgery (SDC) | payer OTHER ==
[2023-02-20] MEDS ORDERED: DAPTOMYCIN 800 MG in SODIUM CHLORIDE 50 ML IVPB ONE (11:00)
[2023-02-20 12:28] VITALS: BP 134/72; PULSE 72; RESP 18; TEMP 98
== END 2023-02-20 12:05 | disposition home or self-care (01) ==
LOC: FM/S 10:40 → FINFUSION 10:40
PROVIDERS: ATTEND Internal Medicine
DX: L02.214 Cutaneous abscess of groin (principal); B95.62 Methicillin resistant Staphylococcus aureus infection as the cause of diseases classified elsewhere
CPT/HCPCS: 96365; J0878

== ENCOUNTER 2023-02-21 10:58 | Day surgery (SDC) | payer OTHER ==
[2023-02-21] MEDS ORDERED: DAPTOMYCIN 800 MG in SODIUM CHLORIDE 50 ML IVPB ONE (11:30)
[2023-02-21 12:30] VITALS: BP 112/60; PULSE 65; RESP 18; TEMP 98.2
[2023-02-21 12:32] LABS: HEMATOCRIT 36.3 % (35.4-49); HEMOGLOBIN 12.1 G/dL (11.7-16.9); MCH 32.3 pg (25.7-33.7); MCHC 33.4 g/dl (32.0-35.9); MEAN CELL VOLUME 96.9 fl (80-96); MEAN PLT VOLUME 8.7 fl (7.5-11.1); PLATELET COUNT 283.2 10^3/uL (134-434); RBC 3.75 10^6/uL (4.00-5.60); RDW 13.9 % (11.9-15.9); WHITE BLOOD COUNT 7.5 10^3/uL (4.0-10.8)
[2023-02-21 12:50] LABS: ALBUMIN 3.9 g/dl (3.4-5.0); BILIRUBIN,TOTAL 0.4 mg/dl (0.2-1); BLOOD UREA NITROGEN 18.9 mg/dl (7-18); CALCIUM 9.2 mg/dl (8.5-10.1); CREATININE 1.5 mg/dl (0.6-1.3); POTASSIUM 5.1 mmol/L (3.5-5.1); SGOT/AST 16.3 U/L (15-37); SGPT/ALT 10.6 U/L (7-52); TOT PROT 6.4 g/dl (6.4-8.2)
== END 2023-02-21 12:31 | disposition home or self-care (01) ==
LOC: FINFUSION 10:58 → FM/S 10:58 → FINFUSION 12:31
PROVIDERS: ATTEND Internal Medicine
DX: L02.214 Cutaneous abscess of groin (principal); B95.62 Methicillin resistant Staphylococcus aureus infection as the cause of diseases classified elsewhere
CPT/HCPCS: 36415; 80053; 82550; 82553; 85027; 96365; J0878

== ENCOUNTER 2023-02-22 10:30 | Day surgery (SDC) | payer OTHER ==
[~2023-02-22 10:30] MED LIST changes: -DAPTOMYCIN 800 MG in SODIUM CHLORIDE 100 ML IVPB ONE; +DAPTOMYCIN 800 MG in SODIUM CHLORIDE 50 ML IVPB ONE
[2023-02-22 11:34] VITALS: BP 117/67; PULSE 65; RESP 18; TEMP 98.2
== END 2023-02-22 11:39 | disposition home or self-care (01) ==
LOC: FINFUSION 10:30 → FM/S 10:30 → FINFUSION 11:39
PROVIDERS: ATTEND Internal Medicine
DX: L02.214 Cutaneous abscess of groin (principal); B95.62 Methicillin resistant Staphylococcus aureus infection as the cause of diseases classified elsewhere
CPT/HCPCS: 96365; J0878

== ENCOUNTER 2023-02-23 10:38 | Day surgery (SDC) | payer OTHER ==
[2023-02-23] MEDS ORDERED: REFRIGERATED ANITBIOTICS ONE (10:53)
[2023-02-23 11:27] VITALS: BP 120/72; PULSE 87; RESP 18; TEMP 98.4
== END 2023-02-23 11:41 | disposition home or self-care (01) ==
LOC: FINFUSION 10:38 → FM/S 10:40 → FINFUSION 11:41
PROVIDERS: ATTEND Internal Medicine
DX: L02.214 Cutaneous abscess of groin (principal); B95.62 Methicillin resistant Staphylococcus aureus infection as the cause of diseases classified elsewhere
CPT/HCPCS: 96365; J0878

== ENCOUNTER 2023-02-24 10:15 | Day surgery (SDC) | payer OTHER ==
[2023-02-24 10:50] LABS: HEMATOCRIT 36.9 % (35.4-49); HEMOGLOBIN 12.1 G/dL (11.7-16.9); MCH 31.7 pg (25.7-33.7); MCHC 32.8 g/dl (32.0-35.9); MEAN CELL VOLUME 96.5 fl (80-96); PLATELET COUNT 245.4 10^3/uL (134-434); RBC 3.82 10^6/uL (4.00-5.60); WHITE BLOOD COUNT 6.2 10^3/uL (4.0-10.8)
[2023-02-24 10:57] VITALS: BP 140/70; TEMP 98.1
[2023-02-24] MEDS ORDERED: DAPTOMYCIN 800 MG in SODIUM CHLORIDE 50 ML IVPB ONE (11:00)
[2023-02-24 11:10] LABS: BILIRUBIN,TOTAL 0.4 mg/dl (0.2-1); BLOOD UREA NITROGEN 16.6 mg/dl (7-18); CALCIUM 9.2 mg/dl (8.5-10.1); CREATININE 1.4 mg/dl (0.6-1.3); POTASSIUM 4.5 mmol/L (3.5-5.1); SGOT/AST 14.6 U/L (15-37); SGPT/ALT 10.2 U/L (7-52); TOT PROT 6.4 g/dl (6.4-8.2)
[2023-02-24 11:35] VITALS: PULSE 72; RESP 18
== END 2023-02-24 11:41 | disposition home or self-care (01) ==
LOC: FINFUSION 10:15 → FM/S 10:17 → FINFUSION 11:41
PROVIDERS: ATTEND Internal Medicine
DX: L02.214 Cutaneous abscess of groin (principal); B95.62 Methicillin resistant Staphylococcus aureus infection as the cause of diseases classified elsewhere
CPT/HCPCS: 36415; 80053; 82550; 82553; 85027; 96365; J0878

== ENCOUNTER 2024-09-03 12:28 | Emergency (ER) | payer OTHER ==
[2024-09-03 12:38] VITALS: BMI 34.7
[2024-09-03 14:29] LABS: BASO % 0.4 % (0-2.0); EOS % 0.3 % (0-4.5); HEMATOCRIT 36.4 % (35.4-49); HEMOGLOBIN 12.1 GM/dL (11.7-16.9); LYMPH % 11.9 % (8-40); MCH 31.8 pg (25.7-33.7); MCHC 33.4 g/dl (32.0-35.9); MEAN CELL VOLUME 95.3 fl (80-96); MEAN PLT VOLUME 7.9 fl (7.5-11.1); MONO % 7.6 % (3.8-10.2); NEUT % 79.8 % (42.8-82.8); PLATELET COUNT 201 10^3/uL (134-434); RBC 3.82 M/mm3 (4.00-5.60); RDW 13.5 % (11.9-15.9); WHITE BLOOD COUNT 6.6 K/mm3 (4.0-10.0)
[2024-09-03 14:59] LABS: POTASSIUM 5.1 mmol/L (3.5-5.1)
[2024-09-03 15:01] LABS: CALCIUM 8.5 mg/dL (8.5-10.1)
[2024-09-03 15:02] LABS: ALBUMIN 3.5 g/dl (3.4-5.0)
[2024-09-03 15:05] LABS: CREATININE 1.8 mg/dL (0.55-1.3)
[2024-09-03 15:07] LABS: BILIRUBIN,TOTAL 0.4 mg/dL (0.2-1); TOT PROT 6.8 g/dl (6.4-8.2)
[2024-09-03] MEDS ORDERED: ACETAMINOPHEN INJECTION 100 ML ONE (15:08)
[2024-09-03] MEDS: SODIUM CHLORIDE 0.9% 500 ML INFUS.BAG IV ONE ×2 (15:16→16:56)
[2024-09-03] MEDS: ACETAMINOPHEN 1000 MG/100 ML BAG IVPB ONE (15:16)
[2024-09-03 16:46] VITALS: TEMP 98.5
[2024-09-03 17:48] VITALS: BP 109/57; PULSE 72; RESP 17
[2024-09-03 18:45] LABS: POTASSIUM 4.3 mmol/L (3.5-5.1)
[2024-09-03 18:46] LABS: CALCIUM 7.9 mg/dL (8.5-10.1)
[2024-09-03 18:47] LABS: BLOOD UREA NITROGEN 17.5 mg/dL (7-18)
[2024-09-03 18:50] LABS: CREATININE 1.6 mg/dL (0.55-1.3)
== END 2024-09-03 19:14 | disposition home or self-care (01) ==
LOC: JER 12:28
PROC: 3E033NZ Introduction of Analgesics, Hypnotics, Sedatives into Peripheral Vein, Percutaneous Approach (ICD-10-PCS; principal; 2024-09-03)
DX: J10.1 Influenza due to other identified influenza virus with other respiratory manifestations (principal); I12.9 Hypertensive chronic kidney disease with stage 1 through stage 4 chronic kidney disease, or unspecified chronic kidney disease; N18.30 Chronic kidney disease, stage 3 unspecified; Z20.822 Contact with and (suspected) exposure to COVID-19
CPT/HCPCS: 0241U-QW; 36415; 71045-TC-FY; 80048; 80053; 84484; 85025; 87086; 87186; 93005; 93010; 99285-25; J0131